=== PATIENT | female | born 1975 | race Caucasian/White ===

== ENCOUNTER 2017-02-13 14:01 | Emergency (ER) | payer OTHER ==
--- NOTE | 2017-02-13 14:53 | ERPHSYRPT ---
- History of Present Illness Time Seen by Provider: 02/13/17 14:33 Source: patient Exam Limitations: no limitations Patient Subjective Stated Complaint: all over headache Triage Nursing Assessment: all over headache for 1 week. pt states has been out of prestiq since saturday. 'i pretty much suffer from mental illness and this headaceh is from that and also pain' denies recent injury. nausea with no vomiting. photosensitivity and 'pinging in my head'. normal oral intake. normal bowel and bladder. Allergies/Adverse Reactions: Penicillins Allergy (Verified 02/13/17 14:14) Hives Home Medications: Desvenlafaxine Succinate [Pristiq ER] 100 mg PO DAILY 02/13/17 [History] Zolpidem Tartrate [Ambien] 5 mg PO HS 02/13/17 [History] Hx Tetanus, Diphtheria Vaccination/Date Given: Yes Hx Influenza Vaccination/Date Given: No Hx Pneumococcal Vaccination/Date Given: No Immunizations Up to Date: Yes - Past Medical History Pertinent Past Medical History: Yes Neurological History: No Pertinent History ENT History: No Pertinent History Cardiac History: No Pertinent History Respiratory History: No Pertinent History Endocrine Medical History: No Pertinent History Musculoskeletal History: Other GI Medical History: No Pertinent History History: No Pertinent History Psycho-Social History: Anxiety, Depression Female Reproductive Disorders: No Pertinent History Other Medical History: CHRONIC BACK PAIN - Past Surgical History Past Surgical History: Yes Neuro Surgical History: No Pertinent History Cardiac: No Pertinent History, Vascular Surgery Respiratory: No Pertinent History Gastrointestinal: No Pertinent History Genitourinary: No Pertinent History Musculoskeletal: Other Female Surgical History: Section, Tubal Ligation Other Surgical History: SALPINGOOPHORECTOMY - Social History Smoking Status: Current every day smoker Exposure to second hand smoke: Yes Drug Use: none Patient Lives Alone: No - Female History Hx Last Menstrual Period: 3 weeks Hx Now: No - Nursing Vital Signs Nursing Vital Signs: Initial Vital Signs Temperature 98.7 F Temperature Source Oral Pulse Rate 114 Respiratory Rate 18 Blood Pressure [Right Arm] 156/94 Pain Intensity 8 - Physical Exam SpO2: 100 Oxygen Delivery: Room Air - Departure Instructions: Headache
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
[2017-02-13] MEDS ORDERED: Ativan 2 MG/1 ML VIAL IV ONE (15:13)
[2017-02-13] MEDS ORDERED: Ativan 2 MG/1 ML VIAL ONE (15:29)
[2017-02-13 15:33] LABS: BASOPHIL % 0.3 % (0.0-0.4); Eosinophil % 1.8 % (0.00-5.0); Granulocytes % 57.3 % (36.0-66.0); Lymphocytes % 31.6 % (24.0-44.0); Mean Cell Volume 83.4 fl (78-100); Mean Corpuscular Hemoglobin 26.6 pg (26-32); Mean Platelet Volume 9.4 fl (6-9.5); Platelet Count 348 K/mm3 (150-450); Red Blood Count 4.82 M/mm3 (4.1-5.4); Red Cell Distribution Width 17.9 % (11.5-14.0); White Blood Count 7.7 K/mm3 (4.0-10.5)
[2017-02-13 15:50] LABS: COMPLETE URINE MICROSCOPIC? NO; Collection Type CCMS
[2017-02-13 15:56] LABS: ACETAMINOPHEN < 2.0 ug/ml (10-30); ALBUMIN 4.1 g/dL (3.4-5.0); ALKALINE PHOSPHATASE 75 U/L (46-116); ANION GAP 13.9 MEQ/L (5-15); BILIRUBIN,TOTAL 0.3 mg/dL (0.2-1.0); BLOOD UREA NITROGEN 9 mg/dL (9-20); CHLORIDE 105 mEq/L (98-107); Carbon Dioxide 25.4 mEq/L (21-32); Glucose 83 MG/DL (70-110); Potassium 3.6 mEq/L (3.5-5.1); SGOT/AST 22 U/L (15-37); SGPT/ALT 18 U/L (12-78); SODIUM 141 mEq/L (136-145); Total Protein 7.8 gm/dL (6.4-8.2)
[2017-02-13] MEDS ORDERED: TYLENOL 325 MG PO STA (17:42)
[2017-02-13] MEDS ORDERED: TYLENOL 325 MG ONE (17:49)
[2017-02-13 18:54] VITALS: O2SAT 100
[2017-02-13 22:03] VITALS: BP 130/68; PULSE 78
== END 2017-02-13 22:03 | disposition home or self-care (01) ==
LOC: ED 14:01
DX: F32.9 Major depressive disorder, single episode, unspecified (principal); F41.9 Anxiety disorder, unspecified; R51 Headache; R11.0 Nausea; R41.840 Attention and concentration deficit; G47.00 Insomnia, unspecified; R45.851 Suicidal ideations; R45.1 Restlessness and agitation; Z79.899 Other long term (current) drug therapy
CPT/HCPCS: 36000; 36415; 80053; 80307; 80320; 81002; 83986; 85025; 90791; 96374; 99284; 99285; G0481; J2060; Q3014; A9270-GY

== ENCOUNTER 2018-05-04 12:21 | Observation (INO) | payer OTHER ==
[2018-05-04] MEDS ORDERED: LOPRESSOR 5 MG/5 ML INJECTION IV ONE ×2 (12:51→12:57)
[2018-05-04] MEDS ORDERED: BABY ASPIRIN 81 MG CHEW PO ONE (12:51)
[2018-05-04] MEDS ORDERED: Sodium Chloride 0.9% 1000 ML 1,000 ML IV STA (12:51)
[2018-05-04] MEDS ORDERED: Nitrostat 0.4 MG (ED) SL ONE ×3 (12:51→13:19)
--- NOTE | 2018-05-04 12:55 | ERPHSYRPT ---
- History of Present Illness Time Seen by Provider: 05/04/18 12:45 Historian: patient Exam Limitations: clinical condition Patient Subjective Stated Complaint: Patient was visiting at [facility] and started having chest pain that radiated to neck and to back and entire face started tingling and went numb. Triage Nursing Assessment: Patient present in ED ambulating with complaints of chest pain that radiates to back and causing entire face to be numb for about an hour. Patient was at rest during episode. Patient states she has been having high blood pressure and anxiety attacks the past week and has an appointment this week with family dr. Physician History: PATIENT WITH A HISTORY OF ANXIETY, HYPERTENSION, TAKEN OFF HYPERTENSION MEDICATIONS COMPLAINS OF MONTHS AGO. HAS ONSET OF SUBSTERNAL CHEST PAINS INTERMITTENT X 1 WEEK WITH A EPISODE OF FACIAL NUMBNESS. DENIES HEADACHE, BLURRED VISION, UNSTABLE GAIT, NUMBNESS, TNGLING AND WEAKNESS IN EXTREMITIES. DENIES COUGH OR FEVER. Timing/Duration: week(s) Activities at Onset: activity Location: substernal Chest Pain Radiation: arm Severity of Pain-Max: moderate Severity of Pain-Current: moderate Modifying Factors: Improves With: nothing Nitro Today/Relief: 0.4 mg x 2, provided by ED Aspirin Treatment Today: 81 mg x 4, provided by ED Allergies/Adverse Reactions: Penicillins Allergy (Verified 02/13/17 14:14) Hives Home Medications: clonazePAM [Clonazepam] 1 tab PO BIDPRN PRN 05/04/18 [History] Hx Tetanus, Diphtheria Vaccination/Date Given: No Hx Influenza Vaccination/Date Given: No Hx Pneumococcal Vaccination/Date Given: No Immunizations Up to Date: Yes - Review of Systems Constitutional: No Fever, No Chills Eyes: No Symptoms Ears, Nose, & Throat: No Symptoms Respiratory: No Symptoms, No Cough, No Dyspnea Cardiac: Chest Pain, Palpitations, No Edema, No Syncope Abdominal/Gastrointestinal: No Abdominal Pain, No Nausea, No Vomiting, No Diarrhea Genitourinary Symptoms: No Symptoms, No Dysuria Musculoskeletal: No Symptoms, No Back Pain, No Neck Pain Skin: No Rash Neurological: No Dizziness, No Focal Weakness, No Sensory Changes Psychological: No Symptoms Endocrine: No Symptoms All Other Systems: Reviewed and Negative - Past Medical History Pertinent Past Medical History: Yes Neurological History: No Pertinent History ENT History: No Pertinent History Cardiac History: No Pertinent History Respiratory History: No Pertinent History Endocrine Medical History: No Pertinent History Musculoskeletal History: Other GI Medical History: No Pertinent History History: No Pertinent History Psycho-Social History: Anxiety, Depression Female Reproductive Disorders: No Pertinent History Other Medical History: CHRONIC BACK PAIN - Past Surgical History Past Surgical History: Yes Neuro Surgical History: No Pertinent History Cardiac: No Pertinent History, Vascular Surgery Respiratory: No Pertinent History Gastrointestinal: No Pertinent History Genitourinary: No Pertinent History Musculoskeletal: Other Female Surgical History: Section, Tubal Ligation Other Surgical History: SALPINGOOPHORECTOMY - Social History Smoking Status: Current every day smoker How long have you smoked: 8 years Exposure to second hand smoke: Yes Drug Use: marijuana Patient Lives Alone: No - Female History Hx Last Menstrual Period: currently Hx Now: No - Nursing Vital Signs Nursing Vital Signs: Initial Vital Signs Temperature 98.1 F 05/04/18 12:31 Pulse Rate 105 H 05/04/18 12:31 Respiratory Rate 20 05/04/18 12:31 Blood Pressure 183/122 05/04/18 12:31 O2 Sat by Pulse Oximetry 100 05/04/18 12:31 Pain Scale Pain Intensity 6 - Physical Exam General Appearance: no apparent distress, alert Eye Exam: PERRL/EOMI, eyes nml inspection Ears, Nose, Throat Exam: normal ENT inspection, moist mucous membranes Neck Exam: normal inspection, non-tender, supple, full range of motion Respiratory Exam: normal breath sounds, lungs clear, No respiratory distress Cardiovascular Exam: regular rate/rhythm, normal heart sounds, tachycardia Gastrointestinal/Abdomen Exam: soft, normal bowel sounds, No tenderness, No mass Back Exam: normal inspection, No CVA tenderness, No vertebral tenderness Extremity Exam: normal inspection, normal range of motion Neurologic Exam: alert, oriented x 3, cooperative, normal mood/affect, sensation nml, No motor deficits Skin Exam: normal color, warm, dry SpO2 Interpretation: normal SpO2: 100 Oxygen Delivery: Room Air - Course EKG Interpreted by Me: RATE, Sinus Tach, NORMAL AXIS - Radiology Exams Chest X-ray Interpretation: Negative - CT Exams Head CT Interpretation: Tele-radiologist Report, No/Intracranial Hemorrhag Ordered Tests: Active Orders 24 hr Category Date Time Status Manager Change STAT Care 05/04/18 12:51 Active EKG-ER Only STAT Care 05/04/18 12:51 Active EKG-ER Only STAT Care 05/04/18 15:36 Ordered IV Insertion STAT Care 05/04/18 12:51 Active Oxygen-ED Only NASAL CANNULA 2 lpm Care 05/04/18 12:51 Active CHEST 1 VIEW (PORTABLE) Stat Exams 05/04/18 13:27 Taken HEAD WITHOUT CONTRAST [CT] Stat Exams 05/04/18 13:50 Taken CBC W DIFF Stat Lab 05/04/18 12:55 Completed CMP Stat Lab 05/04/18 12:55 Completed D-DIMER QUANTITATION Stat Lab 05/04/18 12:55 Completed HCG,QUALITATIVE URINE Stat Lab 05/04/18 14:45 Completed PROTIME WITH INR Stat Lab 05/04/18 12:55 Completed TROPONIN Q3H Lab 05/04/18 12:55 Completed TROPONIN Q3H Lab 05/04/18 16:00 Ordered TROPONIN Q3H Lab 05/04/18 19:00 Ordered TROPONIN Q3H Lab 05/04/18 22:00 Ordered TROPONIN Q3H Lab 05/05/18 01:00 Ordered TSH, 3RD Generation Routine Lab 05/04/18 12:55 Completed Urine Triage Profile Stat Lab 05/04/18 12:54 Completed Medication Summary Discontinued Medications Generic Name Dose Route Start Last Admin Trade Name Freq PRN Reason Stop Dose Admin Aspirin 324 mg 05/04/18 12:51 05/04/18 13:00 Baby Aspirin 81 Mg Chew PO 05/04/18 12:52 324 mg STAT ONE Administration Aspirin Confirm 05/04/18 12:56 Baby Aspirin 81 Mg Chew Administered 05/04/18 12:57 Dose 324 mg .ROUTE .STK-MED ONE Sodium Chloride 1,000 mls @ 500 mls/hr 05/04/18 12:51 05/04/18 13:00 Sodium Chloride 0.9% 1000 Ml IV 05/04/18 14:50 500 mls/hr .Q2H STA Administration Sodium Chloride Confirm 05/04/18 12:57 Sodium Chloride 0.9% 1000 Ml Administered 05/04/18 12:58 Dose 1,000 mls @ ud .ROUTE .STK-MED ONE Metoprolol Tartrate 5 mg 05/04/18 12:51 05/04/18 13:01 Lopressor 5 Mg/5 Ml Injection IV 05/04/18 12:52 5 mg STAT ONE Administration Metoprolol Tartrate Confirm 05/04/18 12:57 Lopressor 5 Mg/5 Ml Injection Administered 05/04/18 12:58 Dose 5 mg IV .STK-MED ONE Nitroglycerin 0.4 mg 05/04/18 12:51 05/04/18 13:00 Nitrostat 0.4 Mg (Ed) SL 05/04/18 12:52 0.4 mg STAT ONE Administration Nitroglycerin Confirm 05/04/18 12:56 Nitrostat 0.4 Mg (Ed) Administered 05/04/18 12:57 Dose 0.4 mg SL .STK-MED ONE Nitroglycerin 0.4 mg 05/04/18 13:19 05/04/18 13:21 Nitrostat 0.4 Mg (Ed) SL 05/04/18 13:20 0.4 mg STAT ONE Administration Nitroglycerin 1 gm 05/04/18 14:44 05/04/18 14:53 Nitro-Bid 2% Ud Packets TOP 05/04/18 14:45 1 gm STAT ONE Administration Nitroglycerin Confirm 05/04/18 14:52 Nitro-Bid 2% Ud Packets Administered 05/04/18 14:53 Dose 1 gm .ROUTE .STK-MED ONE Lab/Rad Data: Laboratory Result Diagrams 05/04/18 12:55 05/04/18 12:55 Laboratory Results 05/04/18 05/04/18 05/04/18 Range/Units 14:45 12:55 12:55 WBC (4.0-10.5) K/mm3 RBC (4.1-5.4) M/mm3 Hgb (12.0-16.0) gm/dl Hct (35-47) % MCV (78-100) fl MCH (26-32) pg MCHC (32-36) g/dl RDW (11.5-14.0) % Plt Count (150-450) K/mm3 MPV (6-9.5) fl Gran % (36.0-66.0) % Eos # (Auto) (0-0.5) Absolute Lymphs (auto) (1.0-4.6) Absolute Monos (auto) (0.0-1.3) Lymphocytes % (24.0-44.0) % Monocytes % (0.0-12.0) % Eosinophils % (0.00-5.0) % Basophils % (0.0-0.4) % Absolute Granulocytes (1.4-6.9) Basophils # (0-0.4) PT 12.0 (9.95-12.35) SECONDS INR 1.03 (0.8-3.0) D-Dimer 440 (215-500) ng/mL Sodium (137-145) mmol/L Potassium (3.5-5.1) mmol/L Chloride (98-107) mmol/L Carbon Dioxide (22-30) mmol/L Anion Gap (5-15) MEQ/L BUN (7-17) mg/dL Creatinine (0.52-1.04) mg/dL Estimated GFR ML/MIN Glucose (74-106) mg/dL Calcium (8.4-10.2) mg/dL Total Bilirubin (0.2-1.3) mg/dL AST (14-36) U/L ALT (0-35) U/L Alkaline Phosphatase (38-126) U/L Troponin I < 0.012 (0.000-0.034) ng/mL Serum Total Protein (6.3-8.2) g/dL Albumin (3.5-5.0) g/dL TSH 3rd Generation 2.250 (0.47-4.68) mIU/L Urine HCG, Qual NEGATIVE (Negative) Urine Opiates Level (NEGATIVE) Ur Methadone (NEGATIVE) Urine Barbiturates (NEGATIVE) Ur Phencyclidine (PCP) (NEGATIVE) Urine Amphetamine (NEGATIVE) U Benzodiazepine Level (NEGATIVE) Urine Cocaine (NEGATIVE) Urine Marijuana (THC) (NEGATIVE) 05/04/18 05/04/18 05/04/18 Range/Units 12:55 12:55 12:54 WBC 8.4 (4.0-10.5) K/mm3 RBC 4.72 (4.1-5.4) M/mm3 Hgb 13.2 (12.0-16.0) gm/dl Hct 40.1 (35-47) % MCV 85.0 (78-100) fl MCH 28.0 (26-32) pg MCHC 32.9 (32-36) g/dl RDW 17.2 H (11.5-14.0) % Plt Count 396 (150-450) K/mm3 MPV 10.0 H (6-9.5) fl Gran % 62.5 (36.0-66.0) % Eos # (Auto) 0.16 (0-0.5) Absolute Lymphs (auto) 2.36 (1.0-4.6) Absolute Monos (auto) 0.59 (0.0-1.3) Lymphocytes % 28.2 (24.0-44.0) % Monocytes % 7.0 (0.0-12.0) % Eosinophils % 1.9 (0.00-5.0) % Basophils % 0.4 (0.0-0.4) % Absolute Granulocytes 5.23 (1.4-6.9) Basophils # 0.03 (0-0.4) PT (9.95-12.35) SECONDS INR (0.8-3.0) D-Dimer (215-500) ng/mL Sodium 143 (137-145) mmol/L Potassium 3.9 (3.5-5.1) mmol/L Chloride 107 (98-107) mmol/L Carbon Dioxide 25 (22-30) mmol/L Anion Gap 14.7 (5-15) MEQ/L BUN 12 (7-17) mg/dL Creatinine 0.78 (0.52-1.04) mg/dL Estimated GFR > 60.0 ML/MIN Glucose 107 H (74-106) mg/dL Calcium 10.0 (8.4-10.2) mg/dL Total Bilirubin 0.40 (0.2-1.3) mg/dL AST 20 (14-36) U/L ALT 13 (0-35) U/L Alkaline Phosphatase 93 (38-126) U/L Troponin I (0.000-0.034) ng/mL Serum Total Protein 8.1 (6.3-8.2) g/dL Albumin 5.0 (3.5-5.0) g/dL TSH 3rd Generation (0.47-4.68) mIU/L Urine HCG, Qual (Negative) Urine Opiates Level NEGATIVE (NEGATIVE) Ur Methadone NEGATIVE (NEGATIVE) Urine Barbiturates NEGATIVE (NEGATIVE) Ur Phencyclidine (PCP) NEGATIVE (NEGATIVE) Urine Amphetamine NEGATIVE (NEGATIVE) U Benzodiazepine Level NEGATIVE (NEGATIVE) Urine Cocaine NEGATIVE (NEGATIVE) Urine Marijuana (THC) POSITIVE (NEGATIVE) - Progress Progress: improved, re-examined Progress Note: 05/04/18 16:02 ADMINISTERED IV NORMAL SALINE 500ML BOLUS, ASA 324MG ORALLY, NITRO 0.4MG SL X 2 , NITROPASTE 1" ANTERIOR CHEST WALL, LOPRESSOR 5MG, EKG SINUS TACHY RATE 115, REPEAT EKG NORMAL SINUS RHYTHM RATE 81 Discussed with : Kayley Will see patient in: hospital (observation) (DISCUSSED WITH DR ZIMMER AT 1600 FOR OBSERVATION) - Departure Time of Disposition: 16:10 Departure Disposition: Observation Clinical Impression: ACUTE CHEST PAIN, HYPERTENSION Condition: Stable Critical Care Time: No Referrals: JASON FUENTES NP [Primary Care Provider] -
[2018-05-04] MEDS ORDERED: BABY ASPIRIN 81 MG CHEW ONE (12:56)
[2018-05-04] MEDS ORDERED: Sodium Chloride 0.9% 1000 ML 1,000 ML ONE (12:57)
[2018-05-04 13:04] LABS: BASOPHIL % 0.4 % (0.0-0.4); Basophil (Absolute #) 0.03 (0-0.4); Eosinophil % 1.9 % (0.00-5.0); Eosinophil (Absolute #) 0.16 (0-0.5); Granulocyte Absolute (ANC) 5.23 (1.4-6.9); Granulocytes % 62.5 % (36.0-66.0); Hematocrit 40.1 % (35-47); Hemoglobin 13.2 gm/dl (12.0-16.0); Lymphocyte (Absolute #) 2.36 (1.0-4.6); Lymphocytes % 28.2 % (24.0-44.0); Mean Corpuscular Hgb Concent. 32.9 g/dl (32-36); Monocyte (Absolute #) 0.59 (0.0-1.3); Platelet Count 396 K/mm3 (150-450); Red Blood Count 4.72 M/mm3 (4.1-5.4); Red Cell Distribution Width 17.2 % (11.5-14.0); White Blood Count 8.4 K/mm3 (4.0-10.5)
[2018-05-04 13:20] LABS: ALKALINE PHOSPHATASE 93 U/L (38-126); ANION GAP 14.7 MEQ/L (5-15); BLOOD UREA NITROGEN 12 mg/dL (7-17); CHLORIDE 107 mmol/L (98-107); Carbon Dioxide 25 mmol/L (22-30); Creatinine 1 0.78 mg/dL (0.52-1.04); Glucose 107 mg/dL (74-106); Potassium 3.9 mmol/L (3.5-5.1); SGOT/AST 20 U/L (14-36); SGPT/ALT 13 U/L (0-35); SODIUM 143 mmol/L (137-145); Total Protein 8.1 g/dL (6.3-8.2)
[2018-05-04 13:22] LABS: INR 1.03 (0.8-3.0)
[2018-05-04 13:42] LABS: TROPONIN < 0.012 ng/mL (0.000-0.034)
[2018-05-04] MEDS ORDERED: NITRO-BID 2% UD PACKETS TOP ONE (14:44)
[2018-05-04] MEDS ORDERED: NITRO-BID 2% UD PACKETS ONE (14:52)
[2018-05-04 15:08] LABS: Amphetamine,Urine NEGATIVE (NEGATIVE); Barbiturate,Urine NEGATIVE (NEGATIVE); Benzodiazepine,Urine NEGATIVE (NEGATIVE); Cocaine,Urine NEGATIVE (NEGATIVE); Methadone,Urine NEGATIVE (NEGATIVE); Opiate,Urine NEGATIVE (NEGATIVE); PCP,Urine NEGATIVE (NEGATIVE); THC,Urine POSITIVE (NEGATIVE)
[2018-05-04] MEDS ORDERED: Senokot-S Tablet PO PRN (16:07)
[2018-05-04] MEDS ORDERED: MAALOX ES 30 ML UNIT DOSE PO PRN (16:07)
[2018-05-04] MEDS ORDERED: Zofran 4 MG/2 ML VIAL IV PRN (16:07)
[2018-05-04] MEDS ORDERED: Nitrostat 0.4 MG Tablet SL PRN (16:07)
[2018-05-04] MEDS ORDERED: TYLENOL 325 MG PO PRN (16:07)
[2018-05-04] MEDS ORDERED: MILK OF MAGNESIA 30 ML PO PRN (16:07)
[2018-05-04] MEDS ORDERED: MORPHINE SULFATE 2 MG INJ IV PRN (16:07)
[2018-05-04] MEDS ORDERED: KLONOPIN PO SCH (16:15)
[2018-05-04] MEDS ORDERED: Sodium Chloride 0.9% 500 ML 500 ML IV SCH (16:15)
[2018-05-04] MEDS ORDERED: TYLENOL 325 MG ONE (16:44)
[2018-05-04] MEDS ORDERED: Sodium Chloride 0.9% 500 ML 500 ML IV ONE (16:54)
[2018-05-04] MEDS ORDERED: Klonopin 0.5 MG PO PRN (19:50)
[2018-05-04 20:14] VITALS: BP 137/85; PULSE 81; O2SAT 99
--- NOTE | 2018-05-04 20:44 | XRAY ---
Indication: Chest pain. High blood pressure. Comparison: November 17, 2014. Portable chest again demonstrates normal heart, lungs, and bony thorax.
--- NOTE | 2018-05-04 20:47 | XRAY ---
Indication: Headache and facial numbness. High blood pressure. Multiple contiguous axial images obtained through the head without contrast. Comparison: November 17, 2014. Again normal appearing brain parenchyma, ventricles, and bony calvarium. Visualized paranasal sinuses and mastoid air cells are clear. Impression: Stable normal CT head without contrast exam. Comment: Preliminary interpretation was made by [facility]. No discrepancy. CTDI 69.38
[2018-05-04] MEDS ORDERED: Klonopin 0.5 MG ONE (22:12)
[2018-05-05] MEDS ORDERED: Toprol-Xl 25MG Tablets PO SCH (10:00)
[2018-05-05] MEDS ORDERED: Ecotrin 325 MG PO SCH (10:00)
== END 2018-05-04 23:15 | disposition left against medical advice (07) ==
LOC: ED 12:21 → MED SURG 16:19
PROVIDERS: ADMIT Family Medicine; ATTEND Family Medicine
DX: R07.9 Chest pain, unspecified (principal); I10 Essential (primary) hypertension; F32.9 Major depressive disorder, single episode, unspecified; Z72.0 Tobacco use; Z79.899 Other long term (current) drug therapy
CPT/HCPCS: 36000; 36415; 70450; 71045; 80053; 80307; 84443; 84484; 84703; 85025; 85379; 85610; 93005; 93041; 93268; 96374; 99285; G0378; A9270-GY

== ENCOUNTER 2018-06-25 13:42 | Emergency (ER) | payer OTHER ==
[2018-06-25] MEDS ORDERED: Sodium Chloride 0.9% 1000 ML 1,000 ML IV STA (14:05)
[2018-06-25] MEDS ORDERED: Sodium Chloride 0.9% 1000 ML 1,000 ML ONE (14:07)
[2018-06-25 14:12] VITALS: O2SAT 98
--- NOTE | 2018-06-25 14:14 | ERPHSYRPT ---
- History of Present Illness Time Seen by Provider: 06/25/18 13:45 Source: patient, family (mother) Physician History: patient gave blood today; later passed out in car; no MVA; no injury; brought by mohter; no prior hx; incontinent of urine; feels weak; no ARREDONDO; slight nausea; no emesis; no other gu symptomos; no CP or SOB or paplatations; no seizure Witnessed: unwitnessed Prior Episodes: no prior history Timing/Duration: today, resolved prior to arrival, sudden Precipitating Factors: other (gave blood just prior) Context: sitting Loss of Consciousness: brief (seconds) Allergies/Adverse Reactions: Penicillins Allergy (Verified 02/13/17 14:14) Hives Home Medications: Bupropion HCl 150 mg Sr [Wellbutrin SR 150 MG] 150 mg DAILY 06/25/18 [ History] Lisinopril/Hydrochlorothiazide [Lisinopril-Hctz 10-12.5 mg Tab] 1 ea DAILY 06/25 [History] Hx Tetanus, Diphtheria Vaccination/Date Given: No Hx Influenza Vaccination/Date Given: No Hx Pneumococcal Vaccination/Date Given: No - Past Medical History Pertinent Past Medical History: Yes Neurological History: No Pertinent History ENT History: No Pertinent History Cardiac History: No Pertinent History Respiratory History: No Pertinent History Endocrine Medical History: No Pertinent History Musculoskeletal History: Other GI Medical History: No Pertinent History History: No Pertinent History Psycho-Social History: Anxiety, Depression Female Reproductive Disorders: No Pertinent History Other Medical History: CHRONIC BACK PAIN - Past Surgical History Past Surgical History: Yes Neuro Surgical History: No Pertinent History Cardiac: No Pertinent History Respiratory: No Pertinent History Gastrointestinal: No Pertinent History Genitourinary: No Pertinent History Musculoskeletal: Other Female Surgical History: Section, Tubal Ligation Other Surgical History: SALPINGOOPHORECTOMY - Social History Smoking Status: Current every day smoker How long have you smoked: 8 yrs Exposure to second hand smoke: Yes Alcohol Use: Socially Drug Use: marijuana Patient Lives Alone: No Significant Family History: no pertinent family hx - Female History Hx Now: No - Review of Systems Constitutional: Malaise Eyes: No Symptoms Ears, Nose, & Throat: No Symptoms Respiratory: No Cough, No Dyspnea, No Wheezing Cardiac: Syncope, No Chest Pain, No Edema, No Palpitations Abdominal/Gastrointestinal: Nausea (slight), No Abdominal Pain, No Vomiting, No Diarrhea Genitourinary Symptoms: Incontinence, No Dysuria, No Frequency, No Hematuria, No Hesitancy, No Urgency Musculoskeletal: No Symptoms Skin: No Symptoms Neurological: Other (syncope), No Focal Weakness, No Headache, No Seizure, No Vertigo Psychological: No Symptoms Endocrine: No Symptoms Hematologic/Lymphatic: No Symptoms Immunological/Allergic: No Symptoms Physical Exam - Nursing Vital Signs Nursing Vital Signs: Initial Vital Signs Temperature 98.2 F 06/25/18 14:04 Pulse Rate 98 H 06/25/18 14:04 Respiratory Rate 16 06/25/18 14:04 Blood Pressure 112/80 06/25/18 14:04 O2 Sat by Pulse Oximetry 98 06/25/18 14:04 Pain Scale Pain Intensity 0 - Yuval Coma Scale Best Eye Response ([place]): (4) open spontaneously Best Verbal Response ([place]): (5) oriented Best Motor Response ([place]): (6) obeys commands [place] Total: 15 - Physical Exam General Appearance: moderate distress, alert, lethargy Eye Exam: bilateral eye: normal inspection, PERRL, EOMI, other (fundi benign; vision ok) Ears, Nose, Throat Exam: normal ENT inspection, pharynx normal, moist mucous membranes Neck Exam: normal inspection, non-tender, supple, full range of motion, No meningismus, No carotid bruit, No JVD Respiratory: normal breath sounds, lungs clear, airway intact, No chest tenderness, No respiratory distress, No crackles/rales, No rhonchi, No wheezing Cardiovascular: regular rate/rhythm, normal heart sounds, normal peripheral pulses, capillary refill <2 sec, No murmur Gastrointestinal: soft, normal bowel sounds, No tenderness, No guarding, No rebound, No organomegaly Pelvic Exam: deferred Rectal Exam: deferred Back Exam: normal inspection, normal range of motion, No CVA tenderness, No vertebral tenderness, No rash Extremity Exam: normal inspection, normal range of motion, No natalya's sign, No pedal edema Peripheral Pulses: carotid (R): 4+, carotid (L): 4+, femoral (R): 4+, femoral (L ): 4+ Mental Status: alert, oriented x 3, cooperative program aide group work Exam: normal hearing, normal speech, PERRL Coordination/Gait: negative Romberg's sign Motor/Sensory: no sensory deficit, no pronator drift, negative Babinski's sign DTR: knee (R): 4+, knee (L): 4+ Skin Exam: normal color, warm, dry, No rash, No petechiae SpO2 Interpretation: normal SpO2: 98 Oxygen Delivery: Room Air - Course Nursing assessment & vital signs reviewed: Yes Rhythm Strip: Rate (86), Normal Sinus Rhythm Ordered Tests: Active Orders 24 hr Category Date Time Status Accucheck STAT Care 06/25/18 14:05 Active Pad Making Machine Operator STAT Care 06/25/18 14:05 Active IV Insertion STAT Care 06/25/18 14:05 Active Orthostatic Vital Signs STAT Care 06/25/18 14:05 Active Pulse Oximetry (ED) STAT Care 06/25/18 14:05 Active Re-Check Vital Signs STAT Care 06/25/18 14:05 Active BMP Stat Lab 06/25/18 14:15 Completed CBC W DIFF Stat Lab 06/25/18 14:15 Completed HCG QUALITATIVE,SERUM Stat Lab 06/25/18 14:15 Completed Medication Summary Generic Name Dose Route Start Last Admin Trade Name Freq PRN Reason Stop Dose Admin Potassium Chloride 40 meq 06/26/18 10:00 06/25/18 15:08 Potassium Chl 40 Meq/30 Ml Oral Solution PO 07/26/18 09:59 40 meq DAILY EVERETTE Administration Discontinued Medications Generic Name Dose Route Start Last Admin Trade Name Freq PRN Reason Stop Dose Admin Sodium Chloride 1,000 mls @ 999 mls/hr 06/25/18 14:05 06/25/18 14:10 Sodium Chloride 0.9% 1000 Ml IV 06/25/18 15:05 999 mls/hr .Q1H1M STA Administration Sodium Chloride Confirm 06/25/18 14:07 Sodium Chloride 0.9% 1000 Ml Administered 06/25/18 14:08 Dose 1,000 mls @ ud .ROUTE .STK-MED ONE Potassium Chloride Confirm 06/25/18 15:03 Potassium Chloride 20 Meq Powder For Oral Pat Administered 06/25/18 15:04 Dose 40 meq .ROUTE .STK-MED ONE Lab/Rad Data: Laboratory Result Diagrams 06/25/18 14:15 06/25/18 14:15 Laboratory Results 06/25/18 06/25/18 06/25/18 Range/Units 14:15 14:15 14:15 WBC 7.7 (4.0-10.5) K/mm3 RBC 4.84 (4.1-5.4) M/mm3 Hgb 14.0 (12.0-16.0) gm/dl Hct 41.4 (35-47) % MCV 85.5 (78-100) fl MCH 28.9 (26-32) pg MCHC 33.8 (32-36) g/dl RDW 16.2 H (11.5-14.0) % Plt Count 346 (150-450) K/mm3 MPV 10.0 H (6-9.5) fl Gran % 57.4 (36.0-66.0) % Eos # (Auto) 0.23 (0-0.5) Absolute Lymphs (auto) 2.49 (1.0-4.6) Absolute Monos (auto) 0.54 (0.0-1.3) Lymphocytes % 32.3 (24.0-44.0) % Monocytes % 7.0 (0.0-12.0) % Eosinophils % 3.0 (0.00-5.0) % Basophils % 0.3 (0.0-0.4) % Absolute Granulocytes 4.43 (1.4-6.9) Basophils # 0.02 (0-0.4) Sodium 137 (137-145) mmol/L Potassium 3.4 L (3.5-5.1) mmol/L Chloride 101 (98-107) mmol/L Carbon Dioxide 25 (22-30) mmol/L Anion Gap 14.8 (5-15) MEQ/L BUN 12 (7-17) mg/dL Creatinine 0.82 (0.52-1.04) mg/dL Estimated GFR > 60.0 ML/MIN Glucose 179 H (74-106) mg/dL Calcium 10.0 (8.4-10.2) mg/dL Serum , Qual NEGATIVE (Negative) reviewed - Progress Progress: improved (after fluids), re-examined (after fluids) Progress Note: 06/25/18 14:16 will check BS;labs, OSVS and give IV fluids; and recheck; mother at bedside 06/25/18 14:17 BS = 186; rhythm strip NSR at 86 09/19/18 14:57 IV fluids infusing; lytes ok except slight low K+ of 3.4 ; reneal fx ok; BS 179 ; will give K+ po and recheck; OSVS ok 06/25/18 14:58 06/25/18 15:09 CBC ok; plt ok 06/25/18 15:12 patient feeling better after 500 ccIV fluids; will continue IV fluids and recheck; 06/25/18 16:18 family at bedside; patient feeling much better after IV fluids and K+; reviewed results and instructions given Counseled pt/family regarding: lab results, diagnosis, need for follow-up - Departure Time of Disposition: 16:18 Departure Disposition: Home Clinical Impression: syncope post donating blood, hypokalemia K+ = 3.4 Condition: Stable Critical Care Time: No Referrals: JASON FUENTES NP [NON-STAFF PHY W/O PRIVILEGES] - Instructions: Syncope (Fainting) (DC) Additional Instructions: rest; good diet; rich in K+; encourage fluids fall precautions Follow-up with family doctor as directed. Call for appointment. Return if any problems. If you smoke please stop. Call or follow up with your family doctor for assistance if you need it to stop. Please wear your seatbelt when driving. Have a nice day. Thank you for allowing us to participate in your care today. :o) Dr Alexis Chauhan
[2018-06-25 14:39] LABS: ANION GAP 14.8 MEQ/L (5-15); BLOOD UREA NITROGEN 12 mg/dL (7-17); CHLORIDE 101 mmol/L (98-107); Carbon Dioxide 25 mmol/L (22-30); Creatinine 1 0.82 mg/dL (0.52-1.04); Glucose 179 mg/dL (74-106); Potassium 3.4 mmol/L (3.5-5.1); SODIUM 137 mmol/L (137-145)
[2018-06-25 14:49] LABS: BASOPHIL % 0.3 % (0.0-0.4); Basophil (Absolute #) 0.02 (0-0.4); Eosinophil (Absolute #) 0.23 (0-0.5); Granulocyte Absolute (ANC) 4.43 (1.4-6.9); Granulocytes % 57.4 % (36.0-66.0); Hematocrit 41.4 % (35-47); Lymphocyte (Absolute #) 2.49 (1.0-4.6); Lymphocytes % 32.3 % (24.0-44.0); Mean Cell Volume 85.5 fl (78-100); Mean Corpuscular Hemoglobin 28.9 pg (26-32); Mean Corpuscular Hgb Concent. 33.8 g/dl (32-36); Monocyte (Absolute #) 0.54 (0.0-1.3); Platelet Count 346 K/mm3 (150-450); Red Blood Count 4.84 M/mm3 (4.1-5.4); Red Cell Distribution Width 16.2 % (11.5-14.0); White Blood Count 7.7 K/mm3 (4.0-10.5)
[2018-06-25] MEDS ORDERED: POTASSIUM CHLORIDE 20 MEQ POWDER FOR ORAL SOL ONE (15:03)
[2018-06-25 16:34] VITALS: BP 100/72; PULSE 81
[2018-06-26] MEDS ORDERED: POTASSIUM CHL 40 MEQ/30 ML ORAL SOLUTION PO SCH (10:00)
== END 2018-06-25 16:36 | disposition home or self-care (01) ==
LOC: ED 13:42
DX: R55 Syncope and collapse (principal); E87.6 Hypokalemia
CPT/HCPCS: 36415; 80048; 82962; 84703; 85025; 93041; 96360; 99284

== ENCOUNTER 2019-05-27 15:50 | Emergency (ER) | payer OTHER, BC | END 2019-05-27 19:07 | disposition home or self-care (01) | LOC: ED 15:50 ==

== ENCOUNTER 2019-09-20 10:38 | Emergency (ER) | payer BC, OTHER ==
[2019-09-20 11:02] VITALS: O2SAT 100
[2019-09-20] MEDS ORDERED: MOTRIN 600 MG PO STA (11:13)
[2019-09-20] MEDS ORDERED: TYLENOL 325 MG PO STA (11:13)
--- NOTE | 2019-09-20 11:15 | ERPHSYRPT ---
- History of Present Illness Time Seen by Provider: 09/20/19 11:14 Source: patient Exam Limitations: no limitations Patient Subjective Stated Complaint: fever/flu like symptoms Triage Nursing Assessment: Patient ambulated back to ED and transferred self to bed. Patient complains of body aches 8/10 since yesterday. Patient denies vomiting or diarrhea, but states she is nauseous. Physician History: fever/flu like symptoms for 1 days Timing/Duration: today Fever Severity: moderate Fever Therapy ENGINEER SPECIALIST: none Associated Symptoms: headache, muscle aches Allergies/Adverse Reactions: Penicillins Allergy (Verified 09/20/19 10:56) Hives Hx Tetanus, Diphtheria Vaccination/Date Given: No Hx Influenza Vaccination/Date Given: No Hx Pneumococcal Vaccination/Date Given: No Immunizations Up to Date: Yes - Review of Systems Constitutional: Fever, Chills, Malaise Eyes: No Symptoms Ears, Nose, & Throat: No Symptoms Respiratory: No Cough, No Dyspnea Cardiac: No Chest Pain, No Edema, No Syncope Abdominal/Gastrointestinal: No Abdominal Pain, No Nausea, No Vomiting, No Diarrhea Genitourinary Symptoms: No Dysuria Musculoskeletal: No Back Pain, No Neck Pain Skin: No Rash Neurological: No Dizziness, No Focal Weakness, No Sensory Changes Psychological: No Symptoms Endocrine: No Symptoms All Other Systems: Reviewed and Negative - Past Medical History Pertinent Past Medical History: Yes Neurological History: No Pertinent History ENT History: No Pertinent History Cardiac History: No Pertinent History Respiratory History: No Pertinent History Endocrine Medical History: No Pertinent History Musculoskeletal History: Other GI Medical History: No Pertinent History History: No Pertinent History Psycho-Social History: Anxiety, Depression Female Reproductive Disorders: No Pertinent History Other Medical History: CHRONIC BACK PAIN - Past Surgical History Past Surgical History: Yes Neuro Surgical History: No Pertinent History Cardiac: No Pertinent History Respiratory: No Pertinent History Gastrointestinal: No Pertinent History Genitourinary: No Pertinent History Musculoskeletal: Other Female Surgical History: Section, Tubal Ligation Other Surgical History: SALPINGOOPHORECTOMY. Picc line, right arm - Social History Smoking Status: Current every day smoker How long have you smoked: years Exposure to second hand smoke: Yes Alcohol Use: Socially Drug Use: marijuana Patient Lives Alone: No Significant Family History: no pertinent family hx - Female History Hx Last Menstrual Period: one week ago Hx Now: No - Nursing Vital Signs Nursing Vital Signs: Initial Vital Signs Temperature 99.0 F 09/20/19 10:57 Pulse Rate 101 H 09/20/19 10:57 Respiratory Rate 18 09/20/19 10:57 Blood Pressure 157/100 09/20/19 10:57 O2 Sat by Pulse Oximetry 100 09/20/19 10:57 Pain Scale Pain Intensity 5 - Physical Exam General Appearance: no apparent distress, alert Eye Exam: PERRL/EOMI ENT Exam: normal ENT inspection, No pharyngeal erythema, No tonsillar exudate Neck Exam: supple, full range of motion, No meningismus Respiratory Exam: normal breath sounds, lungs clear, no respiratory distress Cardiovascular/Chest Exam: normal heart sounds, regular rate/rhythm, No murmur, No edema Gastrointestinal/Abdominal Exam: soft, non tender, no distention Extremity Exam: non-tender, normal range of motion, normal inspection, normal capillary refill Neurologic Exam: alert, oriented x 3, cooperative, gravity prospecting observer helper II-XII nml as tested, normal mood/affect, sensation nml, No motor deficits Skin Exam: normal color, warm, dry, No rash SpO2: 100 - Course Nursing assessment & vital signs reviewed: Yes Ordered Tests: Active Orders 24 hr Category Date Time Status CBC W DIFF Stat Lab 09/20/19 11:30 Completed CMP Stat Lab 09/20/19 11:30 Completed Manual Differential NC Stat Lab 09/20/19 11:30 Completed Medication Summary Discontinued Medications Generic Name Dose Route Start Last Admin Trade Name Norma PRN Reason Stop Dose Admin Acetaminophen 975 mg 09/20/19 11:13 09/20/19 11:21 Tylenol 325 Mg PO 09/20/19 11:14 975 mg STAT STA Administration Acetaminophen Confirm 09/20/19 11:20 Tylenol 325 Mg Administered 09/20/19 11:21 Dose 975 mg .ROUTE .STK-MED ONE Ibuprofen 600 mg 09/20/19 11:13 09/20/19 11:22 Motrin 600 Mg PO 09/20/19 11:14 600 mg STAT STA Administration Ibuprofen Confirm 09/20/19 11:20 Motrin 600 Mg Administered 09/20/19 11:21 Dose 600 mg .ROUTE .STK-MED ONE Lab/Rad Data: Laboratory Result Diagrams 09/20/19 11:30 09/20/19 11:30 Laboratory Results 09/20/19 09/20/19 09/20/19 Range/Units 11:30 11:30 11:30 WBC 5.6 (4.0-10.5) K/mm3 RBC 4.52 (4.1-5.4) M/mm3 Hgb 11.4 L (12.0-16.0) gm/dl Hct 36.2 (35-47) % MCV 80.1 (78-100) fl MCH 25.2 L (26-32) pg MCHC 31.5 L (32-36) g/dl RDW 19.4 H (11.5-14.0) % Plt Count 354 (150-450) K/mm3 MPV 9.4 (6-9.5) fl Segmented Neutrophils 76 H (36.0-66.0) % Band Neutrophils 2 (0.0-2.0) % Lymphocytes (Manual) 16 L (24-44) % Monocytes (Manual) 6 (0.0-12.0) % Toxic Granulation 1+ Platelet Estimate NORMAL (NORMAL) RBC Morphology NORMAL Sodium 137 (137-145) mmol/L Potassium 3.8 (3.5-5.1) mmol/L Chloride 103 (98-107) mmol/L Carbon Dioxide 25 (22-30) mmol/L Anion Gap 12.5 (5-15) MEQ/L BUN 5 L (7-17) mg/dL Creatinine 0.79 (0.52-1.04) mg/dL Estimated GFR > 60.0 ML/MIN Glucose 121 H (74-106) mg/dL Calcium 10.2 (8.4-10.2) mg/dL Total Bilirubin 0.30 (0.2-1.3) mg/dL AST 31 (14-36) U/L ALT 23 (0-35) U/L Alkaline Phosphatase 80 (38-126) U/L Serum Total Protein 7.7 (6.3-8.2) g/dL Albumin 4.4 (3.5-5.0) g/dL Influenza Type A Ag NEGATIVE (NEGATIVE) Influenza Type B Ag NEGATIVE (NEGATIVE) RSV (PCR) NEGATIVE (Negative) - Progress Progress: improved Counseled pt/family regarding: lab results, diagnosis, need for follow-up - Departure Departure Disposition: Home Clinical Impression: Fever and chills, Body aches Condition: Stable Critical Care Time: No Referrals: ALBERTO ZIMMER [Primary Care Provider] - Instructions: Fever, Adult (DC) Additional Instructions: take Tylenol 500 mg every 4 hours with ibuprofen 400 mg every 6 hours for fever and body ache. Please drink lots of water and other full liquids. If symptoms get worse, come back to the emergency room. Follow-up with your primary care physician tomorrow. Discharge/Care Plan REMA LANIER was seen on 09/20/19 in the Emergency Room. The patient was counseled regarding Diagnosis,Lab results, Imaging studies, need for follow up and when to return to the Emergency Room. Prescriptions given: Discharge Note I have spoken with the patient and/or caregivers. I have explained the patient' s condition, diagnosis and treatment plan based on the information available to me at this time. I have answered the patient's and/or caregiver's questions and addressed any concerns. The patient and/or caregivers have as good understanding of the patient's diagnosis, condition and treatment plan as can be expected at this point. The vital signs have been stable. The patient's condition is stable and appropriate for discharge from the emergency department. The patient will pursue further outpatient evaluation with the primary care physician or other designated or consulting physician as outlined in the discharge instructions. The patient and/or caregivers are agreeable to this plan of care and follow-up instructions have been explained in detail. The patient and/or caregivers have received these instruction. The patient/and or caregivers are aware that any significant change in condition or worsening of symptoms should prompt an immediate return to this or the closest emergency department or call 911. Prescriptions: Azithromycin [Zithromax] 250 mg PO DAILY #6 tablet
[2019-09-20] MEDS ORDERED: TYLENOL 325 MG ONE (11:20)
[2019-09-20] MEDS ORDERED: MOTRIN 600 MG ONE (11:20)
[2019-09-20 11:36] LABS: Hematocrit 36.2 % (35-47); Hemoglobin 11.4 gm/dl (12.0-16.0); Mean Cell Volume 80.1 fl (78-100); Mean Corpuscular Hemoglobin 25.2 pg (26-32); Mean Corpuscular Hgb Concent. 31.5 g/dl (32-36); Mean Platelet Volume 9.4 fl (6-9.5); Platelet Count 354 K/mm3 (150-450); Red Blood Count 4.52 M/mm3 (4.1-5.4); Red Cell Distribution Width 19.4 % (11.5-14.0); White Blood Count 5.6 K/mm3 (4.0-10.5)
[2019-09-20 11:46] LABS: ALBUMIN 4.4 g/dL (3.5-5.0); ALKALINE PHOSPHATASE 80 U/L (38-126); ANION GAP 12.5 MEQ/L (5-15); BLOOD UREA NITROGEN 5 mg/dL (7-17); CHLORIDE 103 mmol/L (98-107); Calcium 10.2 mg/dL (8.4-10.2); Carbon Dioxide 25 mmol/L (22-30); Creatinine 1 0.79 mg/dL (0.52-1.04); Glucose 121 mg/dL (74-106); Potassium 3.8 mmol/L (3.5-5.1); SGOT/AST 31 U/L (14-36); SGPT/ALT 23 U/L (0-35); SODIUM 137 mmol/L (137-145); Total Protein 7.7 g/dL (6.3-8.2)
[2019-09-20 12:59] LABS: INFLUENZA A NEGATIVE (NEGATIVE); INFLUENZA B NEGATIVE (NEGATIVE); RESPIRATORY SYNCTIAL VIRUS NEGATIVE (Negative)
[2019-09-20 13:02] LABS: BAND 2 % (0.0-2.0); Lymphocytes 16 % (24-44); Monocyte 6 % (0.0-12.0); Neutrophils 76 % (36.0-66.0); Platelet Estimate NORMAL (NORMAL); Total Cells Counted 100; Toxic Granulation 1+
[2019-09-20 13:17] VITALS: BP 125/80; PULSE 94
== END 2019-09-20 13:20 | disposition home or self-care (01) ==
LOC: ED 10:38
DX: R50.9 Fever, unspecified (principal); R51 Headache; M79.10 Myalgia, unspecified site
CPT/HCPCS: 36415; 80053; 85025; 87631; 99283; A9270-GY

== ENCOUNTER 2020-08-31 09:45 | Emergency (ER) | payer OTHER ==
--- NOTE | 2020-08-31 09:57 | ERPHSYRPT ---
- History of Present Illness Time Seen by Provider: 08/31/20 09:57 Historian: patient Exam Limitations: no limitations Physician History: This is a 44-year-old white female who has gallbladder sludge and pain in her abdomen with associated vomiting. She feels bloated belching gassy as well. Patient had an ultrasound recently which showed gallbladder sludge. She has an appointment to see a general surgeon to discuss the possibility of a cholecystectomy. That appointment is not until September 12. Patient denies chest pain and she denies shortness of breath. Timing/Duration: yesterday, worse Activities at Onset: none Abdominal Pain Onset Location: RUQ, epigastric Pain Radiation: no radiation Modifying Factors: Improves With: vomiting Associated Symptoms: nausea, vomiting Previous symptoms: same symptoms as today Allergies/Adverse Reactions: Penicillins Allergy (Verified 08/31/20 10:01) Hives Home Medications: Hydroxyzine HCl 25 mg [Atarax 25 mg] 25 mg PO BID 08/31/20 [History] Losartan Potassium 50 mg PO DAILY 08/31/20 [History] Omeprazole 40 mg PO DAILY 08/31/20 [History] buPROPion HCl [Bupropion HCl Sr] 150 mg PO BID 08/31/20 [History] Hx Tetanus, Diphtheria Vaccination/Date Given: No Hx Influenza Vaccination/Date Given: No Hx Pneumococcal Vaccination/Date Given: No - Past Medical History Pertinent Past Medical History: Yes Neurological History: No Pertinent History ENT History: No Pertinent History Cardiac History: No Pertinent History Respiratory History: No Pertinent History Endocrine Medical History: No Pertinent History Musculoskeletal History: Other GI Medical History: No Pertinent History History: No Pertinent History Psycho-Social History: Anxiety, Depression Female Reproductive Disorders: No Pertinent History Other Medical History: CHRONIC BACK PAIN - Past Surgical History Past Surgical History: Yes Neuro Surgical History: No Pertinent History Cardiac: No Pertinent History Respiratory: No Pertinent History Gastrointestinal: No Pertinent History Genitourinary: No Pertinent History Musculoskeletal: Other Female Surgical History: Section, Tubal Ligation Other Surgical History: SALPINGOOPHORECTOMY. Picc line, right arm - Social History Smoking Status: Current every day smoker How long have you smoked: years Exposure to second hand smoke: Yes Alcohol Use: Socially Drug Use: marijuana Patient Lives Alone: No Significant Family History: no pertinent family hx - Nursing Vital Signs Nursing Vital Signs: Initial Vital Signs Temperature 98.4 F 08/31/20 09:47 Pulse Rate 94 H 08/31/20 09:47 Blood Pressure 143/96 08/31/20 09:47 O2 Sat by Pulse Oximetry 100 08/31/20 09:47 Pain Scale Pain Intensity 4 Ordered Tests: Active Orders 24 hr Category Date Time Status IV Insertion STAT Care 08/31/20 10:33 Active ABDOMEN AND PELVIS W/0 CONTRAS [CT] Stat Exams 08/31/20 10:34 Completed AMYLASE Stat Lab 08/31/20 11:00 Completed CBC W DIFF Stat Lab 08/31/20 11:00 Results CMP Stat Lab 08/31/20 11:00 Completed LIPASE Stat Lab 08/31/20 11:00 Completed Lactic Acid Stat Lab 08/31/20 10:33 Completed UA W/RFX UR CULTURE Stat Lab 08/31/20 10:34 Ordered Medication Summary Discontinued Medications Generic Name Dose Route Start Last Admin Trade Name Freq PRN Reason Stop Dose Admin Hydromorphone HCl 1 mg 08/31/20 10:33 08/31/20 12:15 Hydromorphone 1 Mg/Ml Injection IV 08/31/20 10:34 1 mg STAT ONE Administration Hydromorphone HCl Confirm 08/31/20 12:12 Hydromorphone 1 Mg/Ml Injection Administered 08/31/20 12:13 Dose 1 mg .ROUTE .STK-MED ONE Sodium Chloride 1,000 mls @ 999 mls/hr 08/31/20 10:33 08/31/20 12:15 Sodium Chloride 0.9% 1000 Ml IV 08/31/20 11:33 999 mls/hr .Q1H1M STA Administration Sodium Chloride Confirm 08/31/20 12:13 Sodium Chloride 0.9% 1000 Ml Administered 08/31/20 12:14 Dose 1,000 mls @ ud .ROUTE .STK-MED ONE Ondansetron HCl 4 mg 08/31/20 10:33 08/31/20 12:15 Zofran 4 Mg/2 Ml Vial IV 08/31/20 10:34 4 mg STAT ONE Administration Ondansetron HCl Confirm 08/31/20 12:12 Zofran 4 Mg/2 Ml Vial Administered 08/31/20 12:13 Dose 4 mg .ROUTE .STK-MED ONE Lab/Rad Data: Laboratory Result Diagrams 08/31/20 11:00 08/31/20 11:00 Laboratory Results 08/31/20 08/31/20 08/31/20 Range/Units 11:00 11:00 10:33 WBC 3.8 L (4.0-10.5) K/mm3 RBC 4.61 (4.1-5.4) M/mm3 Hgb 12.2 (12.0-16.0) gm/dl Hct 38.0 (35-47) % MCV 82.4 (78-100) fl MCH 26.5 (26-32) pg MCHC 32.1 (32-36) g/dl RDW 18.4 H (11.5-14.0) % Plt Count 303 (150-450) K/mm3 MPV 9.8 (7.5-11.0) fl Gran % 59.2 (36.0-66.0) % Eos # (Auto) 0.05 (0-0.5) Absolute Lymphs (auto) 1.08 (1.0-4.6) Absolute Monos (auto) 0.42 (0.0-1.3) Lymphocytes % 28.1 (24.0-44.0) % Monocytes % 10.9 (0.0-12.0) % Eosinophils % 1.3 (0.00-5.0) % Basophils % 0.5 (0.0-0.4) % Absolute Granulocytes 2.27 (1.4-6.9) Basophils # 0.02 (0-0.4) Sodium 137 (137-145) mmol/L Potassium 3.9 (3.5-5.1) mmol/L Chloride 109 H (98-107) mmol/L Carbon Dioxide 22 (22-30) mmol/L Anion Gap 9.8 (5-15) MEQ/L BUN 4 L (7-17) mg/dL Creatinine 0.68 (0.52-1.04) mg/dL Estimated GFR > 60.0 ML/MIN Glucose 100 (74-106) mg/dL Lactic Acid 1.0 (0.4-2.0) Calcium 10.2 (8.4-10.2) mg/dL Total Bilirubin 0.50 (0.2-1.3) mg/dL AST 34 (14-36) U/L ALT 22 (0-35) U/L Alkaline Phosphatase 70 (38-126) U/L Serum Total Protein 7.0 (6.3-8.2) g/dL Albumin 4.3 (3.5-5.0) g/dL Amylase 37 (30-110) U/L Lipase 33 (23-300) U/L - Progress Progress: improved, pain not gone completely, re-examined Progress Note: 08/31/20 12:29 CAT scan of the abdomen and pelvis shows new cystic mass adjacent to the transverse duodenum, 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 Medical decision making: I spoke with Shannan in Dr. Meek office. The patient has an appointment with him on September 12. I reviewed the CAT scan findings with her. She has moved the patient's appointment up to September 05 at 10 AM. I faxed over the CAT scan of the abdomen and pelvis results to her. Counseled pt/family regarding: lab results, diagnosis, need for follow-up, rad results - Departure Departure Disposition: Home Clinical Impression: Abdominal pain Condition: Stable Critical Care Time: No Referrals: JASON FUENTES NP [Primary Care Provider] - Additional Instructions: Clear liquid diet. Avoid fatty greasy spicy foods. Take your medication as prescribed. Follow-up with your general surgeon's office on Saturday, September 05, 2020 at 10 AM. Return to the emergency department if your symptoms worsen. Prescriptions: Hydrocodone/APAP 5/325 [[place] 5/325 mg] 1 each PO Q6H PRN PRN #10 tablet MDD 4 PRN Reason: Pain Ondansetron ODT 4 MG [Zofran Odt 4 mg] 4 mg PO Q6H PRN PRN #10 tab.rapdis PRN Reason: Vomiting
[2020-08-31] MEDS ORDERED: Zofran 4 MG/2 ML VIAL IV ONE (10:33)
[2020-08-31] MEDS ORDERED: Hydromorphone 1 mg/ml Injection IV ONE (10:33)
[2020-08-31] MEDS ORDERED: Sodium Chloride 0.9% 1000 ML 1,000 ML IV STA (10:33)
[2020-08-31 11:32] LABS: Absolute Neutrophil Ct (ANC) 2.27 (1.4-6.9); BASOPHIL % 0.5 % (0.0-0.4); Basophil (Absolute #) 0.02 (0-0.4); Eosinophil % 1.3 % (0.00-5.0); Eosinophil (Absolute #) 0.05 (0-0.5); Hemoglobin 12.2 gm/dl (12.0-16.0); Lymphocyte (Absolute #) 1.08 (1.0-4.6); Lymphocytes % 28.1 % (24.0-44.0); Mean Cell Volume 82.4 fl (78-100); Mean Corpuscular Hemoglobin 26.5 pg (26-32); Mean Corpuscular Hgb Concent. 32.1 g/dl (32-36); Mean Platelet Volume 9.8 fl (7.5-11.0); Monocyte (Absolute #) 0.42 (0.0-1.3); Monocytes % 10.9 % (0.0-12.0); Neutrophil % 59.2 % (36.0-66.0); Platelet Count 303 K/mm3 (150-450); Red Blood Count 4.61 M/mm3 (4.1-5.4); Red Cell Distribution Width 18.4 % (11.5-14.0); White Blood Count 3.8 K/mm3 (4.0-10.5)
--- NOTE | 2020-08-31 11:32 | XRAY ---
Indication: Abdomen pain and distention. Gallbladder sludge on recent sonogram. Multiple contiguous axial images obtained through the abdomen and pelvis without contrast as ordered. Comparison: April 10, 2008. Lung bases demonstrates minimal right middle lobe and lingula subsegmental atelectasis/scarring. No infiltrate or effusion. Heart is not enlarged. Noncontrasted stomach and bowel loops appear nonobstructed. New 2.0 x 2.3 x 2.9 cm cystic mass immediately inferior to the transverse duodenum, possible fluid-filled duodenal diverticulum or aortocaval lymphocele. Lack of IV and enteric contrast precludes further characterization. Normal appendix. Radiopacity in the apex and ascending colon presumed ingested medication/bismuth or barium. Tiny cul-de-sac fluid presumed physiologic from rupture/leaking cyst. No walled off fluid collection or free air. Remaining liver, gallbladder, pancreas, spleen, adrenal glands, kidneys, ureters, bladder, uterus, and aorta appear unremarkable for noncontrast exam. Osseous structures intact. No ventral or inguinal hernias. Impression: 1. Tiny physiologic cul-de-sac fluid. 2. New cystic mass adjacent to the transverse duodenum, possible fluid-filled duodenal diverticulum versus aortocaval lymphocele. 3. Appendix and ascending colon radiopacities presumed ingested medication/bismuth or barium. 4. Remaining CT abdomen/pelvis without contrast exam is negative.
[2020-08-31 11:58] LABS: ALBUMIN 4.3 g/dL (3.5-5.0); ALKALINE PHOSPHATASE 70 U/L (38-126); AMYLASE 37 U/L (30-110); ANION GAP 9.8 MEQ/L (5-15); BLOOD UREA NITROGEN 4 mg/dL (7-17); CHLORIDE 109 mmol/L (98-107); Calcium 10.2 mg/dL (8.4-10.2); Carbon Dioxide 22 mmol/L (22-30); Creatinine 1 0.68 mg/dL (0.52-1.04); EST GLOMERULAR FILTRATION RATE > 60.0 ML/MIN; Glucose 100 mg/dL (74-106); LIPASE 33 U/L (23-300); Potassium 3.9 mmol/L (3.5-5.1); SGOT/AST 34 U/L (14-36); SGPT/ALT 22 U/L (0-35); SODIUM 137 mmol/L (137-145)
[2020-08-31] MEDS ORDERED: Hydromorphone 1 mg/ml Injection ONE (12:12)
[2020-08-31] MEDS ORDERED: Zofran 4 MG/2 ML VIAL ONE (12:12)
[2020-08-31] MEDS ORDERED: Sodium Chloride 0.9% 1000 ML 1,000 ML ONE (12:13)
[2020-08-31 12:23] VITALS: BP 149/100; PULSE 103; O2SAT 98
== END 2020-08-31 13:06 | disposition home or self-care (01) ==
LOC: ED 09:45
DX: R10.9 Unspecified abdominal pain (principal)
CPT/HCPCS: 36415; 74176; 80053; 82150; 83605; 83690; 85025; 96374; 96375; 99284; J1170; J2405

== ENCOUNTER 2020-11-04 10:27 | Observation (INO) | payer OTHER ==
[2020-11-04] MEDS ORDERED: Sodium Chloride 0.9% 1000 ML 1,000 ML IV STA ×2 (10:42→12:12)
[2020-11-04] MEDS ORDERED: SUBLIMAZE 100 MCG/2 ML IV ONE ×2 (10:42→12:45)
[2020-11-04] MEDS ORDERED: Zofran 4 MG/2 ML VIAL IV ONE (10:42)
[2020-11-04] MEDS ORDERED: Zofran 4 MG/2 ML VIAL ONE ×3 (10:48→16:31)
[2020-11-04] MEDS ORDERED: SUBLIMAZE 100 MCG/2 ML ONE ×3 (10:49→16:32)
[2020-11-04] MEDS ORDERED: Sodium Chloride 0.9% 1000 ML 1,000 ML ONE ×2 (10:49→12:15)
--- NOTE | 2020-11-04 10:49 | ERPHSYRPT ---
- History of Present Illness Time Seen by Provider: 11/04/20 10:45 Historian: patient Exam Limitations: no limitations Patient Subjective Stated Complaint: PT states "I had my gall bladder out in september and you guys found a mass in my lower abdomen and I have an appoint ment with [facility] next saturday but I have been vomiting more than I ever have and the pain is making it difficult to walk." Triage Nursing Assessment: Pt presented alert and oriented X 3, skin wpd Pt ambulates with a hunched over gait, able to speak in clear full sentences. Pt in no apprent respiratory distress. Physician History: Is a 45-year-old white female who presents with a complaint of severe abdominal pain located primarily in the right lower quadrant. She has had nausea and vomiting the pain is so severe she has to bend over to walk. She has had no fever chills or sweats. Symptoms of nausea and vomiting and being constipated have increased markedly in the last few days. Did have her gallbladder removed on 22 September here and a cystic duodenal mass was found she is scheduled at on 11 November for evaluation of that mass. Timing/Duration: day(s) (Will), gradual onset, worse Activities at Onset: none Quality: stabbing, throbbing Abdominal Pain Onset Location: RLQ Severity of Pain-Max: moderate Severity of Pain-Current: moderate Modifying Factors: Improves With: nothing, vomiting Associated Symptoms: nausea, vomiting Allergies/Adverse Reactions: Penicillins Allergy (Verified 08/31/20 10:01) Hives Home Medications: Hydroxyzine HCl 25 mg [Atarax 25 mg] 25 mg PO BID 08/31/20 [History] Losartan Potassium 50 mg PO DAILY 08/31/20 [History] Omeprazole 40 mg PO DAILY 08/31/20 [History] buPROPion HCl [Bupropion HCl Sr] 150 mg PO BID 08/31/20 [History] Hx Tetanus, Diphtheria Vaccination/Date Given: No Hx Influenza Vaccination/Date Given: No Hx Pneumococcal Vaccination/Date Given: No Immunizations Up to Date: Yes Travel Risk - International Travel Have you traveled outside of the country in past 3 weeks: No - Coronavirus Screening Are you exhibiting any of the following symptoms?: No Close contact with a COVID-19 positive Pt in past 14-21 Days: No - Review of Systems Constitutional: No Fever, No Chills Eyes: No Symptoms Ears, Nose, & Throat: No Symptoms Respiratory: No Cough, No Dyspnea Cardiac: No Chest Pain, No Edema, No Syncope Abdominal/Gastrointestinal: Abdominal Pain, Nausea, Vomiting, Constipation, No Diarrhea Genitourinary Symptoms: No Dysuria Musculoskeletal: No Back Pain, No Neck Pain Skin: No Rash Neurological: No Dizziness, No Focal Weakness, No Sensory Changes Psychological: No Symptoms Endocrine: No Symptoms All Other Systems: Reviewed and Negative - Past Medical History Pertinent Past Medical History: Yes Neurological History: No Pertinent History ENT History: No Pertinent History Cardiac History: No Pertinent History Respiratory History: No Pertinent History Endocrine Medical History: No Pertinent History Musculoskeletal History: Other GI Medical History: No Pertinent History History: No Pertinent History Psycho-Social History: Anxiety, Depression Female Reproductive Disorders: No Pertinent History Other Medical History: CHRONIC BACK PAIN - Past Surgical History Past Surgical History: Yes Neuro Surgical History: No Pertinent History Cardiac: No Pertinent History Respiratory: No Pertinent History Gastrointestinal: No Pertinent History Genitourinary: No Pertinent History Musculoskeletal: Other Female Surgical History: Section, Tubal Ligation Other Surgical History: SALPINGOOPHORECTOMY. Picc line, right arm. jose - Social History Smoking Status: Current every day smoker How long have you smoked: years Exposure to second hand smoke: Yes Alcohol Use: Socially Drug Use: marijuana Patient Lives Alone: No Significant Family History: no pertinent family hx - Female History Hx Last Menstrual Period: 10/26/2020 Hx Now: No - Nursing Vital Signs Nursing Vital Signs: Initial Vital Signs Temperature 97.9 F 11/04/20 10:33 Pulse Rate 122 H 11/04/20 10:33 Respiratory Rate 22 11/04/20 10:33 Blood Pressure 132/99 11/04/20 10:33 O2 Sat by Pulse Oximetry 99 11/04/20 10:33 Pain Scale Pain Intensity 6 - Physical Exam General Appearance: moderate distress, alert Eye Exam: PERRL/EOMI, eyes nml inspection Ears, Nose, Throat Exam: normal ENT inspection, pharynx normal, moist mucous membranes Neck Exam: normal inspection, non-tender, supple, full range of motion Respiratory Exam: normal breath sounds, lungs clear, No respiratory distress Cardiovascular Exam: regular rate/rhythm, normal heart sounds Gastrointestinal/Abdomen Exam: tenderness, guarding, rebound, other (Guarding and rebound in the right lower quadrant there is also decreased bowel sounds), No mass Back Exam: normal inspection, normal range of motion, No CVA tenderness, No vertebral tenderness Extremity Exam: normal inspection, normal range of motion, pelvis stable Neurologic Exam: alert, oriented x 3, cooperative, normal mood/affect, nml ce rebellar function, sensation nml, No motor deficits Skin Exam: normal color, warm, dry SpO2 Interpretation: normal SpO2: 99 O2 Delivery: Room Air - Course Nursing assessment & vital signs reviewed: Yes Ordered Tests: Active Orders 24 hr Category Date Time Status ABDOMEN AND PELVIS W CONTRAST [CT] Stat Exams 11/04/20 10:44 Completed CHEST 1 VIEW (PORTABLE) Stat Exams 11/04/20 10:43 Completed AMYLASE Stat Lab 11/04/20 10:30 Completed CBC W DIFF Stat Lab 11/04/20 10:30 Completed CMP Stat Lab 11/04/20 10:30 Completed LIPASE Stat Lab 11/04/20 10:30 Completed Lactic Acid Stat Lab 11/04/20 10:42 Completed PROTIME WITH INR Stat Lab 11/04/20 10:30 Completed UA W/RFX UR CULTURE Stat Lab 11/04/20 10:42 Ordered Medication Summary Generic Name Dose Route Start Last Admin Trade Name Freq PRN Reason Stop Dose Admin Sodium Chloride 1,000 mls @ 999 mls/hr 11/04/20 12:12 11/04/20 12:16 Sodium Chloride 0.9% 1000 Ml IV 11/04/20 13:12 999 mls/hr .Q1H1M STA Administration Discontinued Medications Generic Name Dose Route Start Last Admin Trade Name Freq PRN Reason Stop Dose Admin Fentanyl Citrate 50 mcg 11/04/20 10:42 11/04/20 10:50 Sublimaze 100 Mcg/2 Ml IV 11/04/20 10:43 50 mcg STAT ONE Administration Fentanyl Citrate Confirm 11/04/20 10:49 Sublimaze 100 Mcg/2 Ml Administered 11/04/20 10:50 Dose 100 mcg .ROUTE .STK-MED ONE Fentanyl Citrate 75 mcg 11/04/20 12:45 11/04/20 12:49 Sublimaze 100 Mcg/2 Ml IV 11/04/20 12:46 75 mcg STAT ONE Administration Fentanyl Citrate Confirm 11/04/20 12:48 Sublimaze 100 Mcg/2 Ml Administered 11/04/20 12:49 Dose 100 mcg .ROUTE .STK-MED ONE Sodium Chloride 1,000 mls @ 999 mls/hr 11/04/20 10:42 11/04/20 12:13 Sodium Chloride 0.9% 1000 Ml IV 11/04/20 11:42 Infused .Q1H1M STA Infusion Sodium Chloride Confirm 11/04/20 10:49 Sodium Chloride 0.9% 1000 Ml Administered 11/04/20 10:50 Dose 1,000 mls @ ud .ROUTE .STK-MED ONE Sodium Chloride Confirm 11/04/20 12:15 Sodium Chloride 0.9% 1000 Ml Administered 11/04/20 12:16 Dose 1,000 mls @ ud .ROUTE .STK-MED ONE Ondansetron HCl 4 mg 11/04/20 10:42 11/04/20 10:50 Zofran 4 Mg/2 Ml Vial IV 11/04/20 10:43 4 mg STAT ONE Administration Ondansetron HCl Confirm 11/04/20 10:48 Zofran 4 Mg/2 Ml Vial Administered 11/04/20 10:49 Dose 4 mg .ROUTE .STK-MED ONE Lab/Rad Data: Laboratory Result Diagrams 11/04/20 10:30 11/04/20 10:30 Laboratory Results 11/04/20 11/04/20 11/04/20 Range/Units 10:42 10:30 10:30 WBC (4.0-10.5) K/mm3 RBC (4.1-5.4) M/mm3 Hgb (12.0-16.0) gm/dl Hct (35-47) % MCV (78-100) fl MCH (26-32) pg MCHC (32-36) g/dl RDW (11.5-14.0) % Plt Count (150-450) K/mm3 MPV (7.5-11.0) fl Gran % (36.0-66.0) % Eos # (Auto) (0-0.5) Absolute Lymphs (auto) (1.0-4.6) Absolute Monos (auto) (0.0-1.3) Lymphocytes % (24.0-44.0) % Monocytes % (0.0-12.0) % Eosinophils % (0.00-5.0) % Basophils % (0.0-0.4) % Absolute Granulocytes (1.4-6.9) Basophils # (0-0.4) PT 14.6 H (9.95-12.35) SECONDS INR 1.29 (0.8-3.0) Sodium 135 L (137-145) mmol/L Potassium 3.8 (3.5-5.1) mmol/L Chloride 100 (98-107) mmol/L Carbon Dioxide 26 (22-30) mmol/L Anion Gap 12.4 (5-15) MEQ/L BUN 7 (7-17) mg/dL Creatinine 0.82 (0.52-1.04) mg/dL Estimated GFR > 60.0 ML/MIN Glucose 140 H (74-106) mg/dL Lactic Acid 1.3 (0.4-2.0) Calcium 11.2 H (8.4-10.2) mg/dL Total Bilirubin 0.50 (0.2-1.3) mg/dL AST 31 (14-36) U/L ALT 17 (0-35) U/L Alkaline Phosphatase 92 (38-126) U/L Serum Total Protein 8.1 (6.3-8.2) g/dL Albumin 4.8 (3.5-5.0) g/dL Amylase 39 (30-110) U/L Lipase 42 (23-300) U/L 11/04/20 Range/Units 10:30 WBC 9.5 (4.0-10.5) K/mm3 RBC 5.27 (4.1-5.4) M/mm3 Hgb 13.7 (12.0-16.0) gm/dl Hct 43.4 (35-47) % MCV 82.4 (78-100) fl MCH 26.0 (26-32) pg MCHC 31.6 L (32-36) g/dl RDW 18.9 H (11.5-14.0) % Plt Count 439 (150-450) K/mm3 MPV 9.4 (7.5-11.0) fl Gran % 69.1 H (36.0-66.0) % Eos # (Auto) 0.21 (0-0.5) Absolute Lymphs (auto) 2.01 (1.0-4.6) Absolute Monos (auto) 0.69 (0.0-1.3) Lymphocytes % 21.2 L (24.0-44.0) % Monocytes % 7.3 (0.0-12.0) % Eosinophils % 2.2 (0.00-5.0) % Basophils % 0.2 (0.0-0.4) % Absolute Granulocytes 6.55 (1.4-6.9) Basophils # 0.02 (0-0.4) PT (9.95-12.35) SECONDS INR (0.8-3.0) Sodium (137-145) mmol/L Potassium (3.5-5.1) mmol/L Chloride (98-107) mmol/L Carbon Dioxide (22-30) mmol/L Anion Gap (5-15) MEQ/L BUN (7-17) mg/dL Creatinine (0.52-1.04) mg/dL Estimated GFR ML/MIN Glucose (74-106) mg/dL Lactic Acid (0.4-2.0) Calcium (8.4-10.2) mg/dL Total Bilirubin (0.2-1.3) mg/dL AST (14-36) U/L ALT (0-35) U/L Alkaline Phosphatase (38-126) U/L Serum Total Protein (6.3-8.2) g/dL Albumin (3.5-5.0) g/dL Amylase (30-110) U/L Lipase (23-300) U/L - Progress Progress: unchanged Progress Note: 11/04/20 12:[address] evidence of acute appendicitis Dr. Tayla Retana was contacted and he will see the patient in anticipation of surgery after he finishes a present case at [place]. Initially he requested Zosyn however patient has an allergy to penicillin so we will substitute Mefoxin instead Discussed with : Karena - Departure Departure Disposition: Observation Clinical Impression: Acute appendicitis Condition: Stable Critical Care Time: No Referrals: JASON FUENTES NP [Primary Care Provider] -
[2020-11-04 10:56] LABS: Absolute Neutrophil Ct (ANC) 6.55 (1.4-6.9); BASOPHIL % 0.2 % (0.0-0.4); Basophil (Absolute #) 0.02 (0-0.4); Eosinophil % 2.2 % (0.00-5.0); Eosinophil (Absolute #) 0.21 (0-0.5); Hematocrit 43.4 % (35-47); Hemoglobin 13.7 gm/dl (12.0-16.0); Lymphocyte (Absolute #) 2.01 (1.0-4.6); Lymphocytes % 21.2 % (24.0-44.0); Mean Cell Volume 82.4 fl (78-100); Mean Corpuscular Hgb Concent. 31.6 g/dl (32-36); Mean Platelet Volume 9.4 fl (7.5-11.0); Monocyte (Absolute #) 0.69 (0.0-1.3); Monocytes % 7.3 % (0.0-12.0); Neutrophil % 69.1 % (36.0-66.0); Platelet Count 439 K/mm3 (150-450); Red Blood Count 5.27 M/mm3 (4.1-5.4); Red Cell Distribution Width 18.9 % (11.5-14.0); White Blood Count 9.5 K/mm3 (4.0-10.5)
[2020-11-04 11:07] LABS: ALBUMIN 4.8 g/dL (3.5-5.0); ALKALINE PHOSPHATASE 92 U/L (38-126); AMYLASE 39 U/L (30-110); ANION GAP 12.4 MEQ/L (5-15); BLOOD UREA NITROGEN 7 mg/dL (7-17); CHLORIDE 100 mmol/L (98-107); Calcium 11.2 mg/dL (8.4-10.2); Carbon Dioxide 26 mmol/L (22-30); Creatinine 1 0.82 mg/dL (0.52-1.04); EST GLOMERULAR FILTRATION RATE > 60.0 ML/MIN; Glucose 140 mg/dL (74-106); LIPASE 42 U/L (23-300); Potassium 3.8 mmol/L (3.5-5.1); SGOT/AST 31 U/L (14-36); SGPT/ALT 17 U/L (0-35); SODIUM 135 mmol/L (137-145); Total Protein 8.1 g/dL (6.3-8.2)
[2020-11-04 11:20] LABS: INR 1.29 (0.8-3.0); PROTIME 14.6 SECONDS (9.95-12.35)
--- NOTE | 2020-11-04 12:28 | XRAY ---
Indication: Right abdomen pain. Mass. Nausea and vomiting. Comparison: September 22, 2019. Portable chest again demonstrates normal heart, lungs, and bony thorax. New contrast in both systems from same day CT abdomen/pelvis exam.
--- NOTE | 2020-11-04 12:28 | XRAY ---
Indication: Right abdomen pain. Mass. Nausea and vomiting. Multiple contiguous axial images obtained through the abdomen and pelvis using 80 cc Isovue 370 contrast. Comparison: August 31, 2020. Lung bases are clear. Heart is not enlarged. There is now radiopacity throughout the entire colon either ingested medication/bismuth or a barium. Noncontrasted stomach and small bowel loops appear nonobstructed. Appendix is now prominent up to 12 mm in diameter with periappendiceal stranding favoring acute appendicitis. No free fluid/air. There has been interval cholecystectomy. New 2.4 cm simple appearing cystic mass anterior right lateral to the IVC approximately L3 level, possible lymphocele. Uterus demonstrates new small endometrial cavity fluid up to 7 mm in thickness. New 1.7 cm dominant left ovary cyst. Remaining liver, pancreas, spleen, adrenal glands, kidneys, ureters, bladder, and aorta appear unremarkable. No pathologic retroperitoneal lymphadenopathy. Osseous structures intact. Impression: 1. New CT features as detailed favoring acute appendicitis. No complications. 2. Uterus demonstrates new endometrial cavity fluid. Correlate with patient's menstrual cycle. 3. New 2.4 cm pericaval simple cystic mass as detailed, possible lymphocele 4. Radiopacities throughout the colon either ingested medication/bismuth or barium.
[2020-11-04] MEDS ORDERED: MEFOXIN 1 Gm/ D5W 50 Ml** 1 G/50 ML ML IV STA (12:57)
[2020-11-04] MEDS ORDERED: Sodium Chloride 0.9% 1000 ML 1,000 ML IV SCH (13:15)
[2020-11-04] MEDS: Hydromorphone 1 mg/ml Injection IV PRN ×2 (13:56→17:27)
[2020-11-04] MEDS: Lactated Ringers 1,000 ML IV SCH (14:34)
[2020-11-04] MEDS ORDERED: Sensorcaine 0.25% 10 ML ONE (14:37)
[2020-11-04] MEDS ORDERED: Lactated Ringers 1,000 ML IV ONE ×2 (14:37→17:09)
[2020-11-04 15:00] LABS: Appearance SLIGHTLY CLOUDY (CLEAR); Bacteria RARE /HPF (NEGATIVE); Bilirubin NEGATIVE (NEGATIVE); Blood SMALL Ery/ul (0-5); Epithelial Cells MODERATE /HPF (FEW); Glucose NEGATIVE (NEGATIVE); Ketones SMALL (NEGATIVE); Leukocyte Esterase TRACE (NEGATIVE); Mucus SLIGHT /HPF (NEGATIVE); Nitrite NEGATIVE (NEGATIVE); Protein,Urine Dip NEGATIVE (Negative); Urobilinogen NEGATIVE mg/dL (0-1)
[2020-11-04] MEDS ORDERED: MEFOXIN 2 GM PREMIX** 2 GM/50 ML ML IV SCH (15:00)
[2020-11-04] MEDS ORDERED: SUBLIMAZE 250 MCG/5 ML ONE (15:18)
[2020-11-04] MEDS ORDERED: Zemuron 100 MG/10 ML ONE (15:18)
[2020-11-04] MEDS ORDERED: Quelicin Fliptop 200 MG/10 ML ONE (15:18)
[2020-11-04] MEDS ORDERED: DIPRIVAN 200 MG/20 ML IV ONE (15:18)
[2020-11-04] MEDS ORDERED: Versed 2 MG/2 ML Injection ONE (15:18)
[2020-11-04] MEDS ORDERED: TORAdol 30 mg Injection ONE (15:52)
[2020-11-04] MEDS ORDERED: BRIDION 200MG/2ML IV ONE (16:11)
[2020-11-04] MEDS ORDERED: Hydromorphone 1 mg/ml Injection ONE (16:32)
[2020-11-04] MEDS ORDERED: TYLENOL 325 MG PO PRN (17:31)
[2020-11-04] MEDS ORDERED: FEVERALL 650 MG RC PRN (17:32)
[2020-11-04] MEDS ORDERED: NORCO 5/325 MG PO PRN (17:33)
[2020-11-04] MEDS: Protonix 40MG Tablet PO SCH (18:00)
[2020-11-04] MEDS: Cozaar 50 MG PO SCH (18:00)
[2020-11-04] MEDS: MORPHINE SULFATE 4 MG INJ IV PRN (19:49)
[2020-11-04] MEDS: Zofran 4 MG/2 ML VIAL IVIM PRN (20:25)
[2020-11-04] MEDS: ATARAX 25 MG PO SCH (22:12)
[2020-11-04] MEDS: MEFOXIN 2 GM PREMIX** 2 GM/50 ML ML IV SCH (22:13)
[2020-11-04] MEDS: Wellbutrin SR 150 MG PO SCH (22:13)
[2020-11-05] MEDS: MORPHINE SULFATE 4 MG INJ IV PRN ×3 (00:07→08:34)
[2020-11-05] MEDS: Zofran 4 MG/2 ML VIAL IVIM PRN (04:27)
[2020-11-05] MEDS: MEFOXIN 2 GM PREMIX** 2 GM/50 ML ML IV SCH (05:59)
[2020-11-05] MEDS: Lactated Ringers 1,000 ML IV SCH (06:00)
[2020-11-05] MEDS ORDERED: NON-FORMULARY ITEM (Losartan Potassium [Losartan Potassium] 50 MG) PO SCH (10:00)
[2020-11-05] MEDS ORDERED: NON-FORMULARY ITEM (Omeprazole [Omeprazole] 40 MG) PO SCH (10:00)
[2020-11-05] MEDS: Protonix 40MG Tablet PO SCH (11:08)
[2020-11-05] MEDS: Cozaar 50 MG PO SCH (11:08)
[2020-11-05] MEDS: ATARAX 25 MG PO SCH (11:08)
[2020-11-05] MEDS: Wellbutrin SR 150 MG PO SCH (11:38)
[2020-11-05 12:23] VITALS: BP 134/69; PULSE 82; O2SAT 96
--- NOTE | 2020-11-07 09:52 | HP ---
CHIEF COMPLAINT: Right lower quadrant pain. HISTORY OF PRESENT ILLNESS: This patient presents with acute onset right lower quadrant pain last night with nausea and vomiting. Denies chest pain, shortness of breath, fever or chills. She recently had a laparoscopic cholecystectomy last month with my partner, Dr. Young. She is also being worked up for gastroparesis and it sounds like she is having a consultation in [place] for gastric pacemaker evaluation. She denies any chest pain or shortness of breath. PAST MEDICAL HISTORY: None. PAST SURGICAL HISTORY: Laparoscopic cholecystectomy. Tubal ligation. MEDICATIONS: Medications reviewed. See MAR. ALLERGIES: PENICILLIN. SOCIAL HISTORY: Positive tobacco. FAMILY HISTORY: No inflammatory bowel disease. PHYSICAL EXAMINATION: GENERAL: Mild distress. HEENT: Sclera nonicteric. Extraocular movements intact. NECK: Supple. No JVD. CHEST: Nonlabored breathing. ABDOMEN: Soft, nondistended, tender to palpation right lower quadrant with guarding. NEURO: Awake, alert, oriented. PSYCH: Appropriate mood and affect. LAB DATA AND TESTS: CT scan showed acute appendicitis, possible lymphocele next to the inferior vena cava. ASSESSMENT: Acute appendicitis. PLAN: Risks and benefits of surgery discussed in depth with the patient. The patient would like to proceed with surgery. Plan for laparoscopic, possible open appendectomy.
--- NOTE | 2020-11-07 10:04 | OP ---
SURGERY DATE/TIME: 11/04/2020 1526 PREOPERATIVE DIAGNOSIS: Acute appendicitis. POSTOPERATIVE DIAGNOSIS: Acute appendicitis. PROCEDURE: Laparoscopic appendectomy. SURGEON: Ajit Retana M.D. ANESTHESIA: General. ESTIMATED BLOOD LOSS: 20 cc. COMPLICATIONS: None. SPECIMEN: Appendix. FINDINGS: Acute uncomplicated appendicitis. INDICATION: This patient presents with signs, symptoms and CT scan evidence of acute appendicitis. The patient discussed risks and benefits of surgery and would like to proceed. DESCRIPTION OF PROCEDURE: The patient was brought to the operating room, placed supine on operating table, placed under general anesthesia. Left arm was tucked. The abdomen was prepped and draped in sterile fashion. Veress needle inserted through small incision above the umbilicus through her prior scar. Pneumoperitoneum obtained. A 5 mm optical trocar inserted and under direct visualization the abdomen was entered. Area on entry was inspected. There did not appear to be any inadvertent injury. Additional 12 mm and 5 mm trocar were placed in the left lower abdomen and mid abdomen. The patient placed in Trendelenburg position and rolled to the left. The appendix was quite inflamed and covered in fat. The small bowel was peeled off the appendix. The mesoappendix was dissected to create a window between the base of the appendix and mesoappendix. The mesoappendix transected with [place] LigaSure. The base of the appendix quite fat and base was transected from its juncture with the cecum with a blue EndoGIA stapler. The staple line looked excellent. The mesoappendix was hemostatic. The specimen was removed with a bag. Trocar site was closed with 0 Vicryl suture with suture passer. A small amount of blood was suctioned out of the abdomen. The trocars were removed under direct visualization. Abdomen desufflated. The wound injected with 0.25% Marcaine. Wounds closed with 4-0 Vicryl sutures. Steri-Strips and dressings were applied. The patient was recovered and taken to PACU in stable condition.
== END 2020-11-05 12:05 | disposition home or self-care (01) ==
LOC: ED 10:27 → MED SURG 14:10
PROVIDERS: ADMIT Surgery; ATTEND Surgery
DX: K35.80 Unspecified acute appendicitis (principal); R10.31 Right lower quadrant pain; Z79.899 Other long term (current) drug therapy
CPT/HCPCS: 36000; 36415; 44970; 71045; 74177; 80053; 81001; 82150; 83605; 83690; 85025; 85610; 93005; 96360; 96361; 96365; 96374; 96375; 96376; 99285; G0378; 99140; J0330; J0694; J1170; J1885; J2250; J2270; J2405; J2704; J3010; A9270-GY

== ENCOUNTER 2020-11-08 20:39 | Emergency (ER) | payer OTHER ==
[2020-11-08] MEDS ORDERED: MORPHINE SULFATE 4 MG INJ IV ONE (20:54)
[2020-11-08] MEDS ORDERED: Sodium Chloride 0.9% 1000 ML 1,000 ML IV SCH (21:00)
--- NOTE | 2020-11-08 21:07 | ERPHSYRPT ---
- History of Present Illness Time Seen by Provider: 11/08/20 20:55 Historian: patient Patient Subjective Stated Complaint: . Triage Nursing Assessment: . Physician History: Patient is a 45-year-old female postop day 4 status post appendectomy presents to our ED with complaints of left lower quadrant pain. Pain started yesterday and has been progressive. Pain described as an ache that is well localized. No radiation. No interval trauma. No fever. No nausea or vomiting. Patient has not had a bowel movement in 1 week. Symptoms are mild to moderate in intensity. No specific worsening or improving factors. Patient voices no other complaints or concerns at this time. Timing/Duration: today Activities at Onset: none Quality: aching Abdominal Pain Onset Location: LLQ Pain Radiation: no radiation Severity of Pain-Max: moderate Severity of Pain-Current: mild Associated Symptoms: denies symptoms Previous symptoms: no prior history Allergies/Adverse Reactions: Penicillins Allergy (Verified 11/08/20 21:01) Hives Home Medications: Hydroxyzine HCl 25 mg [Atarax 25 mg] 25 mg PO BID 08/31/20 [History] Losartan Potassium 50 mg PO DAILY 08/31/20 [History] Omeprazole 40 mg PO DAILY 08/31/20 [History] buPROPion HCl [Bupropion HCl Sr] 150 mg PO BID 08/31/20 [History] Hx Tetanus, Diphtheria Vaccination/Date Given: No Hx Influenza Vaccination/Date Given: No Hx Pneumococcal Vaccination/Date Given: No Immunizations Up to Date: Yes Travel Risk - International Travel Have you traveled outside of the country in past 3 weeks: No - Coronavirus Screening Are you exhibiting any of the following symptoms?: No Close contact with a COVID-19 positive Pt in past 14-21 Days: No - Review of Systems Constitutional: No Symptoms, No Fever, No Chills Eyes: No Symptoms Ears, Nose, & Throat: No Symptoms Respiratory: No Symptoms, No Cough, No Dyspnea Cardiac: No Symptoms, No Chest Pain, No Edema, No Syncope Abdominal/Gastrointestinal: No Symptoms, No Abdominal Pain, No Nausea, No Vomiting, No Diarrhea Genitourinary Symptoms: No Symptoms, No Dysuria Musculoskeletal: No Symptoms, No Back Pain, No Neck Pain Skin: No Symptoms, No Rash Neurological: No Symptoms, No Dizziness, No Focal Weakness, No Sensory Changes Psychological: No Symptoms Endocrine: No Symptoms Hematologic/Lymphatic: No Symptoms Immunological/Allergic: No Symptoms All Other Systems: Reviewed and Negative - Past Medical History Pertinent Past Medical History: Yes Neurological History: No Pertinent History ENT History: No Pertinent History Cardiac History: No Pertinent History Respiratory History: No Pertinent History Endocrine Medical History: No Pertinent History Musculoskeletal History: Other GI Medical History: No Pertinent History History: No Pertinent History Psycho-Social History: Anxiety, Depression Female Reproductive Disorders: No Pertinent History Other Medical History: CHRONIC BACK PAIN - Past Surgical History Past Surgical History: Yes Neuro Surgical History: No Pertinent History Cardiac: No Pertinent History Respiratory: No Pertinent History Gastrointestinal: Appendectomy, Cholecystectomy Genitourinary: No Pertinent History Musculoskeletal: Other Female Surgical History: Section, Tubal Ligation Other Surgical History: SALPINGOOPHORECTOMY. Picc line, right arm. cyst in abdomen - Social History Smoking Status: Current every day smoker How long have you smoked: 10 years Exposure to second hand smoke: Yes Alcohol Use: Socially Drug Use: marijuana Patient Lives Alone: No Significant Family History: no pertinent family hx - Female History Hx Last Menstrual Period: Tubal Hx Now: No - Nursing Vital Signs Nursing Vital Signs: Initial Vital Signs Temperature 98.3 F 11/08/20 20:52 Pulse Rate 86 11/08/20 20:52 Respiratory Rate 18 11/08/20 20:52 Blood Pressure 199/127 11/08/20 20:52 O2 Sat by Pulse Oximetry 99 11/08/20 20:52 Pain Scale Pain Intensity 5 - Physical Exam General Appearance: no apparent distress, alert Eye Exam: PERRL/EOMI, eyes nml inspection Ears, Nose, Throat Exam: normal ENT inspection, pharynx normal, moist mucous membranes Neck Exam: normal inspection, non-tender, supple, full range of motion Respiratory Exam: normal breath sounds, lungs clear, No respiratory distress Cardiovascular Exam: regular rate/rhythm, normal heart sounds Gastrointestinal/Abdomen Exam: soft, normal bowel sounds, tenderness (Postoperative dressings intact. Tenderness to palpation left lower quadrant. No rebound. No guarding.), No mass, No guarding, No pulsatile mass, No hernia, No organomegaly, No splenomegaly Back Exam: normal inspection, normal range of motion, No CVA tenderness, No vertebral tenderness Extremity Exam: normal inspection, normal range of motion, pelvis stable Neurologic Exam: alert, oriented x 3, cooperative, normal mood/affect, nml cerebellar function, sensation nml, No motor deficits Skin Exam: normal color, warm, dry SpO2 Interpretation: normal SpO2: 99 O2 Delivery: Room Air - Course Nursing assessment & vital signs reviewed: Yes - CT Exams Abdomen/Pelvis CT Interpretation: Tele-radiologist Report (Me. New moderate diffuse fecal stasis and 1.5 cm collapsing left ovarian cyst with small cul-de-sac fluid. Also new minimal right lower lobe patchy groundglass airspace disease.) Ordered Tests: Active Orders 24 hr Category Date Time Status IV Insertion STAT Care 11/08/20 20:52 Active ABDOMEN AND PELVIS W CONTRAST [CT] Stat Exams 11/08/20 21:33 Taken CBC W DIFF Stat Lab 11/08/20 21:20 Completed CMP Stat Lab 11/08/20 21:20 Completed LIPASE Stat Lab 11/08/20 21:20 Completed Manual Differential NC Stat Lab 11/08/20 21:20 Completed UA W/RFX UR CULTURE Stat Lab 11/08/20 21:06 Completed Medication Summary Generic Name Dose Route Start Last Admin Trade Name Freq PRN Reason Stop Dose Admin Sodium Chloride 1,000 mls @ 100 mls/hr 11/08/20 21:00 11/08/20 21:43 Sodium Chloride 0.9% 1000 Ml IV 12/08/20 20:59 100 mls/hr .Q10H EVERETTE Administration Discontinued Medications Generic Name Dose Route Start Last Admin Trade Name Freq PRN Reason Stop Dose Admin Morphine Sulfate 4 mg 11/08/20 20:54 11/08/20 21:42 Morphine Sulfate 4 Mg Inj IV 11/08/20 20:55 4 mg STAT ONE Administration Morphine Sulfate Confirm 11/08/20 21:39 Morphine Sulfate 4 Mg Inj Administered 11/08/20 21:40 Dose 4 mg .ROUTE [employer]RFEye[employer] ONE Lab/Rad Data: Laboratory Result Diagrams 11/08/20 21:20 11/08/20 21:20 Laboratory Results 11/08/20 11/08/20 11/08/20 Range/Units 21:20 21:20 21:06 WBC 6.3 (4.0-10.5) K/mm3 RBC 4.77 (4.1-5.4) M/mm3 Hgb 12.3 (12.0-16.0) gm/dl Hct 39.8 (35-47) % MCV 83.4 (78-100) fl MCH 25.8 L (26-32) pg MCHC 30.9 L (32-36) g/dl RDW 18.9 H (11.5-14.0) % Plt Count 407 (150-450) K/mm3 MPV 9.7 (7.5-11.0) fl Sodium 138 (137-145) mmol/L Potassium 3.6 (3.5-5.1) mmol/L Chloride 101 (98-107) mmol/L Carbon Dioxide 29 (22-30) mmol/L Anion Gap 11.4 (5-15) MEQ/L BUN 5 L (7-17) mg/dL Creatinine 0.64 (0.52-1.04) mg/dL Estimated GFR > 60.0 ML/MIN Glucose 99 (74-106) mg/dL Calcium 11.0 H (8.4-10.2) mg/dL Total Bilirubin 0.30 (0.2-1.3) mg/dL AST 26 (14-36) U/L ALT 14 (0-35) U/L Alkaline Phosphatase 72 (38-126) U/L Serum Total Protein 7.7 (6.3-8.2) g/dL Albumin 4.7 (3.5-5.0) g/dL Lipase 34 (23-300) U/L Urine Color COLORLESS (YELLOW) Urine Appearance CLEAR (CLEAR) Urine pH 9.0 (5-6) Ur Specific [place] 1.003 (1.005-1.025) Urine Protein NEGATIVE (Negative) Urine Ketones NEGATIVE (NEGATIVE) Urine Blood NEGATIVE (0-5) Sivakumar/ul Urine Nitrite NEGATIVE (NEGATIVE) Urine Bilirubin NEGATIVE (NEGATIVE) Urine Urobilinogen NEGATIVE (0-1) mg/dL Ur Leukocyte Esterase TRACE (NEGATIVE) Urine WBC (Auto) 3-5 (0-5) /HPF Urine RBC (Auto) NONE (0-2) /HPF U Hyaline Cast (Auto) 0-2 (0-2) /LPF U Epithel Cells (Auto) RARE (FEW) /HPF Urine Bacteria (Auto) NONE (NEGATIVE) /HPF Urine Culture Reflexed NO (NO) Urine Glucose NEGATIVE (NEGATIVE) mg/dL - Progress Progress: improved Progress Note: 11/08/20 22:44 Patient reassessed. Pain resolved. Vitals stable. CT reveals moderate fecal stasis and 1.5 cm collapsing left ovarian cyst with small cul-de-sac fluid. Right lower lobe patchy groundglass airspace disease observed. However patient does not have any respiratory complaints no shortness of breath lungs are clear patient is afebrile no leukocytosis. No indication for antibiotics at this time. Case discussed with Dr. Bray covering Dr. Ajit Retana. There is nothing surgical at this time. Patient may be discharged home with a laxative a nd pain control. Patient will take [id number] MiraLAX and Tylenol as needed for pain control. She will follow-up with Dr. Retana on Saturday as scheduled. Patient states she is ready for discharge. Will discharge home at this time. She voices no other complaints concerns at this time. Discussed with .: Sisi Will see patient in: office Counseled pt/family regarding: lab results, diagnosis, need for follow-up, rad results - Departure Departure Disposition: Home Clinical Impression: Constipation, Left ovarian cyst, Ground glass opacity present on imaging of lung Condition: Stable Critical Care Time: No Referrals: JASON FUENTES, JAN [Primary Care Provider] - Additional Instructions: Discharge/Care Plan REMA LANIER was seen on 11/08/20 in the Emergency Room. The patient was counseled regarding Diagnosis,Lab results, Imaging studies, need for follow up and when to return to the Emergency Room. Prescriptions given: Discharge Note I have spoken with the patient and/or caregivers. I have explained the patient's condition, diagnosis and treatment plan based on the information available to me at this time. I have answered the patient's and/or caregiver's questions and addressed any concerns. The patient and/or caregivers have as good understanding of the patient's diagnosis, condition and treatment plan as can be expected at this point. The vital signs have been stable. The patient's condition is stable and appropriate for discharge from the emergency department. The patient will pursue further outpatient evaluation with the primary care physician or other designated or consulting physician as outlined in the discharge instructions. The patient and/or caregivers are agreeable to this plan of care and follow-up instructions have been explained in detail. The patient and/or caregivers have received these instruction. The patient/and or caregivers are aware that any significant change in condition or worsening of symptoms should prompt an immediate return to this or the closest emergency department or call 911.
[2020-11-08 21:10] LABS: Appearance CLEAR (CLEAR); Bilirubin NEGATIVE (NEGATIVE); Blood NEGATIVE Ery/ul (0-5); Epithelial Cells RARE /HPF (FEW); Glucose NEGATIVE (NEGATIVE); Hyaline Casts 0-2 /LPF (0-2); Ketones NEGATIVE (NEGATIVE); Leukocyte Esterase TRACE (NEGATIVE); Nitrite NEGATIVE (NEGATIVE); Protein,Urine Dip NEGATIVE (Negative); Specific Gravity 1.003 (1.005-1.025); Urobilinogen NEGATIVE mg/dL (0-1)
[2020-11-08 21:37] LABS: Hematocrit 39.8 % (35-47); Hemoglobin 12.3 gm/dl (12.0-16.0); Mean Cell Volume 83.4 fl (78-100); Mean Corpuscular Hemoglobin 25.8 pg (26-32); Mean Corpuscular Hgb Concent. 30.9 g/dl (32-36); Mean Platelet Volume 9.7 fl (7.5-11.0); Platelet Count 407 K/mm3 (150-450); Red Blood Count 4.77 M/mm3 (4.1-5.4); Red Cell Distribution Width 18.9 % (11.5-14.0); White Blood Count 6.3 K/mm3 (4.0-10.5)
[2020-11-08] MEDS ORDERED: Sodium Chloride 0.9% 1000 ML 1,000 ML ONE (21:39)
[2020-11-08] MEDS ORDERED: MORPHINE SULFATE 4 MG INJ ONE (21:39)
[2020-11-08 22:03] LABS: ALBUMIN 4.7 g/dL (3.5-5.0); ALKALINE PHOSPHATASE 72 U/L (38-126); ANION GAP 11.4 MEQ/L (5-15); BLOOD UREA NITROGEN 5 mg/dL (7-17); CHLORIDE 101 mmol/L (98-107); Carbon Dioxide 29 mmol/L (22-30); Creatinine 1 0.64 mg/dL (0.52-1.04); EST GLOMERULAR FILTRATION RATE > 60.0 ML/MIN; Glucose 99 mg/dL (74-106); LIPASE 34 U/L (23-300); Potassium 3.6 mmol/L (3.5-5.1); SGOT/AST 26 U/L (14-36); SGPT/ALT 14 U/L (0-35); SODIUM 138 mmol/L (137-145); Total Protein 7.7 g/dL (6.3-8.2)
[2020-11-08 22:11] VITALS: BP 171/108; PULSE 74
[2020-11-08 22:31] VITALS: O2SAT 99
[2020-11-09 01:58] LABS: Basophil 1 % (0.0-1.0); Eosinophil 1 % (0.00-3.0); Lymphocytes 44 % (24-44); Monocyte 4 % (0.0-12.0); Neutrophils 50 % (36.0-66.0); Total Cells Counted 100
[2020-11-09 01:59] LABS: ANISOCYTOSIS 1+; Platelet Estimate NORMAL (NORMAL)
--- NOTE | 2020-11-09 08:53 | XRAY ---
Indication: Left abdomen pain. Status post appendectomy 4 days ago. Multiple contiguous axial images obtained through the abdomen and pelvis using 80 cc Isovue 370 contrast. Comparison: November 04, 2020. Lung bases now demonstrates minimal patchy right lower lobe groundglass airspace disease. No consolidation/effusion. Heart is not enlarged. Stomach is distended with food/fluid. Noncontrasted stomach and bowel loops appear nonobstructed. Status post appendectomy. There is now moderate diffuse scattered colonic fecal debris. Descending/sigmoid colon demonstrates intraluminal radiopacities either ingested bismuth/medication or barium. No walled off fluid collection or free air. New 1.5 cm collapsing left ovary cyst with small cul-de-sac fluid. Stable 2.4 cm simple appearing cyst anterior right lateral to the IVC, possible lymphocele. Again previous cholecystectomy. Remaining liver, pancreas, spleen, adrenal glands, kidneys, ureters, bladder, uterus, and aorta appear unremarkable. No pathologic retroperitoneal lymphadenopathy. Osseous structures remain intact. Impression: 1. Status post appendectomy without complications. 2. New collapsing left ovary cyst with small cul-de-sac fluid. 3. New moderate diffuse fecal stasis. 4. New right lower lobe patchy groundglass airspace disease. 5. Stable small pericaval simple cystic mass possible lymphocele.
== END 2020-11-08 23:03 | disposition home or self-care (01) ==
LOC: ED 20:39
DX: R10.32 Left lower quadrant pain (principal); K59.00 Constipation, unspecified; N83.202 Unspecified ovarian cyst, left side; R93.89 Abnormal findings on diagnostic imaging of other specified body structures
CPT/HCPCS: 36000; 36415; 74177; 80053; 81001; 83690; 85025; 96374; 99284; J2270

== ENCOUNTER 2022-03-04 18:31 | Emergency (ER) | payer OTHER ==
--- NOTE | 2022-03-04 20:05 | ERPHSYRPT ---
- History of Present Illness Time Seen by Provider: 03/04/22 20:04 Source: patient Exam Limitations: no limitations Patient Subjective Stated Complaint: Pt went for an infusion of antibiotics approx 1 hour before and she has a PICC line in her right upper arm and bandage was changed and when she got home blood was pouring out of the sight Triage Nursing Assessment: Pt brought to the ER by a family member, hypertensive, rates pain in right upper arm as 8/10, removed bandage to PICC line and bleeding has stopped, arm is swollen and pt having severe pain, has had 4 out of 14 antibiotic treatments due to a dog bite to her foot, pulses normal, skin n/w/d Physician History: pt had infusion in [place] and then it started bleeding and has pain in muscle which previously was torn. Severity: moderate Modifying Factors: Improves With: movement Associated Symptoms: denies symptoms Allergies/Adverse Reactions: Penicillins Allergy (Verified 03/04/22 18:48) Hives Hx Tetanus, Diphtheria Vaccination/Date Given: No Travel Risk - International Travel Have you traveled outside of the country in past 3 weeks: No - Coronavirus Screening Are you exhibiting any of the following symptoms?: No Close contact with a COVID-19 positive Pt in past 14-21 Days: No - Vaccine Status Have you recieved a Covid-19 vaccination: No - Review of Systems Constitutional: No Fever, No Chills Eyes: No Symptoms Ears, Nose, & Throat: No Symptoms Respiratory: No Cough, No Dyspnea Cardiac: No Chest Pain, No Edema, No Syncope Abdominal/Gastrointestinal: No Abdominal Pain, No Nausea, No Vomiting, No Diarrhea Genitourinary Symptoms: No Dysuria Musculoskeletal: No Back Pain, No Neck Pain Skin: No Rash Neurological: No Dizziness, No Focal Weakness, No Sensory Changes Psychological: No Symptoms Endocrine: No Symptoms All Other Systems: Reviewed and Negative - Past Medical History Pertinent Past Medical History: No Neurological History: No Pertinent History ENT History: No Pertinent History Cardiac History: Hypertension Respiratory History: No Pertinent History Endocrine Medical History: No Pertinent History Musculoskeletal History: No Pertinent History GI Medical History: GERD History: No Pertinent History Psycho-Social History: Anxiety Female Reproductive Disorders: No Pertinent History - Past Surgical History Past Surgical History: Yes Neuro Surgical History: No Pertinent History Cardiac: No Pertinent History Respiratory: No Pertinent History Gastrointestinal: Appendectomy, Cholecystectomy Genitourinary: No Pertinent History Musculoskeletal: No Pertinent History Female Surgical History: Tubal Ligation Other Surgical History: left amr hardware foot surgery from dog bite - Social History Smoking Status: Never smoker Exposure to second hand smoke: Yes Drug Use: none Patient Lives Alone: No - Female History Hx Now: No - Nursing Vital Signs Nursing Vital Signs: Initial Vital Signs Temperature 98.4 F 03/04/22 18:34 Pulse Rate 100 H 03/04/22 18:34 Blood Pressure 147/104 03/04/22 18:34 O2 Sat by Pulse Oximetry 100 03/04/22 18:34 Pain Scale Pain Intensity 4 - Physical Exam General Appearance: no apparent distress, alert Eye Exam: PERRL/EOMI, eyes nml inspection Ears, Nose, Throat Exam: normal ENT inspection, TMs normal, pharynx normal, moist mucous membranes Neck Exam: normal inspection, non-tender, supple, full range of motion Respiratory Exam: normal breath sounds, lungs clear, No respiratory distress Cardiovascular Exam: regular rate/rhythm, normal heart sounds, normal peripheral pulses Gastrointestinal/Abdomen Exam: soft, normal bowel sounds, No tenderness, No mass Back Exam: normal inspection, normal range of motion, No CVA tenderness, No vertebral tenderness Extremity Exam: normal inspection, normal range of motion, pelvis stable, other (tender right upper arm with ? infiltration onto chest. ) Neurologic Exam: alert, oriented x 3, cooperative, normal mood/affect, nml cerebellar function, nml station & gait, sensation nml, No motor deficits Skin Exam: normal color, warm, dry, No rash Lymphatic Exam: No adenopathy SpO2: 100 - Course Nursing assessment & vital signs reviewed: Yes - CT Exams Right Upper Extremity CT Interpretation: Tele-radiologist Report, Other (picc line in place without complications seen.) Chest CT Interpretation: Tele-radiologist Report, Other (PICC in place) Ordered Tests: Active Orders 24 hr Category Date Time Status CHEST WITHOUT CONTRAST [CT] Stat Exams 03/04/22 20:06 Taken UPPER EXTREMITY W/O CONTRAST [CT] Stat Exams 03/04/22 20:06 Taken Medication Summary Discontinued Medications Generic Name Dose Route Start Last Admin Trade Name Freq PRN Reason Stop Dose Admin Hydromorphone HCl 1 mg 03/04/22 20:08 03/04/22 21:45 Hydromorphone 1 Mg/1ml Inj 1 Mg/Ml Syringe IV 03/04/22 20:09 Not Given STAT ONE Ondansetron HCl 4 mg 03/04/22 20:07 03/04/22 21:45 Ondansetron Hcl 4 Mg/2 Ml Vial IV 03/04/22 20:08 Not Given STAT ONE - Progress Progress: improved, re-examined Progress Note: 03/04/22 21:40 function of PIC check by RN and found to be working well and in place on CT. more secure dressing placed to prevent leaking. 03/04/22 21:42 no sign of infection or blockage or infiltration. Counseled pt/family regarding: lab results, diagnosis, need for follow-up, rad results - Departure Departure Disposition: Home Clinical Impression: PIC line (peripherally inserted central catheter) flush, picc line evaluation Condition: Good Critical Care Time: No Referrals: ALBERTO ZIMMER [Primary Care Provider] - Follow up/PCP as directed Additional Instructions: see the infusion team to recheck function tomorrow prior to use. Return meantime if further concerns or leaking. follow-up blood pressure with your
[2022-03-04] MEDS ORDERED: Zofran 4 MG/2 ML VIAL IV ONE (20:07)
[2022-03-04] MEDS ORDERED: Hydromorphone 1 mg/ml Injection IV ONE (20:08)
[2022-03-04 21:42] VITALS: BP 129/87; PULSE 88
[2022-03-04 21:45] VITALS: O2SAT 100
--- NOTE | 2022-03-05 07:47 | XRAY ---
Indication: Right arm pain and swelling. Bleeding from PICC line insertion. Multiple contiguous axial images obtained through the chest without contrast. Comparison: None Lungs are inflated and clear. Heart not enlarged. Right arm PICC line with tip at aortocaval junction. Right upper extremity PICC line insertion site is negative for focal fluid collection or subcutaneous emphysema. Aorta is normal in course and caliber. No pathologic mediastinal lymphadenopathy. Bony thorax intact with mild degenerative changes throughout the spine. Limited upper abdomen demonstrates cholecystectomy clips. Impression: 1. Right upper extremity PICC line in situ without complications. 2. Remaining CT chest without contrast exam is normal. Comment: Preliminary interpretation made by C. No critical discrepancy.
--- NOTE | 2022-03-05 07:49 | XRAY ---
Indication: Right arm pain and swelling. Bleeding from PICC line insertion. Multiple contiguous axial images obtained through the right upper extremity to include the shoulder and elbow. Sagittal and coronal reformatted images obtained. Comparison: None Right upper extremity PICC line insertion site is negative for focal fluid collection or subcutaneous emphysema. No suspicious solid/cystic soft tissue mass. Visualized osseous structures including right shoulder/elbow intact. CT chest reported separately. Impression: Right upper extremity PICC line in situ without complications. Comment: Preliminary interpretation made by [facility]. No critical discrepancy.
== END 2022-03-04 21:51 | disposition home or self-care (01) ==
LOC: MERGE 18:31 → ED 18:31
DX: T82.534A Leakage of infusion catheter, initial encounter (principal); M79.621 Pain in right upper arm; I10 Essential (primary) hypertension
CPT/HCPCS: 71250; 73200; 99284

== ENCOUNTER 2022-04-21 13:48 | Emergency (ER) | payer OTHER ==
[2022-04-21 14:09] VITALS: O2SAT 100
[2022-04-21] MEDS ORDERED: TORAdol 30 mg Injection IV ONE (14:49)
[2022-04-21] MEDS ORDERED: TORAdol 30 mg Injection ONE (14:50)
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
[2022-04-21] MEDS ORDERED: SUBLIMAZE 100 MCG/2 ML IV ONE (15:23)
[2022-04-21] MEDS ORDERED: Zofran 4 MG/2 ML VIAL ONE (15:24)
[2022-04-21] MEDS ORDERED: Zofran 4 MG/2 ML VIAL IV ONE (15:24)
[2022-04-21] MEDS ORDERED: SUBLIMAZE 100 MCG/2 ML ONE (15:24)
[2022-04-21 16:01] VITALS: BP 168/104; PULSE 77
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
== END 2022-04-21 16:11 | disposition home or self-care (01) ==
LOC: ED 13:48
DX: S09.90XA Unspecified injury of head, initial encounter (principal); S16.1XXA Strain of muscle, fascia and tendon at neck level, initial encounter; S90.32XA Contusion of left foot, initial encounter; S20.214A Contusion of middle front wall of thorax, initial encounter; V53.5XXA Driver of pick-up truck or van injured in collision with car, pick-up truck or van in traffic accident, initial encounter; R51.9 Headache, unspecified; M54.2 Cervicalgia; R07.9 Chest pain, unspecified; M25.552 Pain in left hip; M79.672 Pain in left foot; I10 Essential (primary) hypertension; Z28.310 Unvaccinated for COVID-19; Z79.891 Long term (current) use of opiate analgesic
CPT/HCPCS: 70450; 71250; 72125; 73630; 74176; 96374; 96375; 99285; J1885; J2405; J3010

== ENCOUNTER 2022-08-14 15:12 | Emergency (ER) | payer OTHER ==
[2022-08-14 15:57] LABS: Appearance CLEAR (CLEAR); Bilirubin NEGATIVE (NEGATIVE); Dipstick done @ ? MAIN LAB; Glucose NEGATIVE (NEGATIVE); Ketones NEGATIVE (NEGATIVE); Nitrite NEGATIVE (NEGATIVE); Ph 7.5 (5-6); Protein,Urine Dip NEGATIVE (Negative); RBC NEGATIVE Ery/ul (0-5); Urobilinogen 0.2 mg/dL (0-1)
[2022-08-14 16:03] LABS: Epithelial Cells RARE /HPF (FEW); Mucus SLIGHT /HPF (NEGATIVE)
[2022-08-14 16:08] LABS: Urine Cultured Indicated? NO
[2022-08-14] MEDS ORDERED: TORAdol 30 mg Injection ONE (16:13)
[2022-08-14] MEDS: TORAdol 30 mg Injection IV ONE (16:14)
[2022-08-14] MEDS ORDERED: Sodium Chloride 0.9% 1000 ML 1,000 ML ONE (16:14)
[2022-08-14] MEDS: Sodium Chloride 0.9% 1000 ML 1,000 ML IV STA (16:14)
--- NOTE | 2022-08-14 16:17 | XRAY ---
Indication: Pneumonia. Vomiting. Comparison: November 04, 2020 Portable chest again demonstrates normal heart, lungs, and bony thorax.
[2022-08-14 16:19] LABS: Mean Cell Volume 77.9 fL (78-100); Mean Corpuscular Hemoglobin 23.8 pg (26-32); Mean Corpuscular Hgb Concent. 30.6 g/dL (32-36); Red Blood Count 4.62 x10^6/uL (4.1-5.4); Red Cell Distribution Width 17.2 % (11.5-14.0); White Blood Count 7.5 x10^3/uL (4.0-10.5)
[2022-08-14 16:20] LABS: Absolute Neutrophil Ct (ANC) 6.51 x10^3/uL (1.4-6.9); Basophil (Absolute #) 0.03 x10^3/uL (0-0.4); Eosinophil % 1.1 % (0.00-5.0); Eosinophil (Absolute #) 0.08 x10^3/uL (0-0.5); Lymphocyte (Absolute #) 0.33 x10^3/uL (1.0-4.6); Lymphocytes % 4.4 % (24.0-44.0); Mean Platelet Volume 9.7 fL (7.5-11.0); Monocyte (Absolute #) 0.54 x10^3/uL (0.0-1.3); Monocytes % 7.2 % (0.0-12.0); Neutrophil % 86.5 % (36.0-66.0); Platelet Count 351 x10^3/uL (150-450)
[2022-08-14 16:43] LABS: ALBUMIN 4.7 g/dL (3.5-5.0); ALKALINE PHOSPHATASE 77 U/L (38-126); ANION GAP 12.6 MEQ/L (5-15); BLOOD UREA NITROGEN 6 mg/dL (7-17); CHLORIDE 106 mmol/L (98-107); Calcium 10.1 mg/dL (8.4-10.2); Carbon Dioxide 21 mmol/L (22-30); Creatinine 1 0.67 mg/dL (0.52-1.04); EST GLOMERULAR FILTRATION RATE > 60.0 ML/MIN; Glucose 101 mg/dL (74-106); Potassium 4.2 mmol/L (3.5-5.1); SGOT/AST 23 U/L (14-36); SGPT/ALT 16 U/L (0-35); SODIUM 135 mmol/L (137-145); Total Protein 7.5 g/dL (6.3-8.2)
--- NOTE | 2022-08-14 16:47 | ERPHSYRPT ---
- History of Present Illness Time Seen by Provider: 08/14/22 15:30 Source: patient Exam Limitations: no limitations Patient Subjective Stated Complaint: vomiting/body aches Triage Nursing Assessment: Patient ambulated back to ED and transferred self to bed. Patient A+O x 3. Patient's skin flushed, warm and dry. Patient complains of vomiting, diarrhea and body aches that started last night. Patient complains of body aches and headaches 05/16. Physician History: 46-year-old female presents to emergency department with complaints of nausea vomiting diarrhea. patient also has body aches. Symptoms have been ongoing for 1 day. Patient has a history of COVID. Patient states her symptoms are the same. No chest pain or shortness of breath. No diaphoresis. Symptoms are constant. Symptoms are moderate in intensity. Patient voices no other complaints or concerns at this time. Timing/Duration: today Severity: moderate Modifying Factors: Improves With: nothing Associated Symptoms: nausea, vomiting, No shortness of breath Allergies/Adverse Reactions: Penicillins Allergy (Verified 08/14/22 15:19) Hives Home Medications: Losartan Potassium 50 mg PO DAILY 08/31/20 [History] Hx Tetanus, Diphtheria Vaccination/Date Given: No Hx Influenza Vaccination/Date Given: No Hx Pneumococcal Vaccination/Date Given: No Immunizations Up to Date: Yes Travel Risk - International Travel Have you traveled outside of the country in past 3 weeks: No - Coronavirus Screening Are you exhibiting any of the following symptoms?: No Close contact with a COVID-19 positive Pt in past 14-21 Days: No - Vaccine Status Have you recieved a Covid-19 vaccination: No - Review of Systems Constitutional: No Symptoms, No Fever, No Chills Eyes: No Symptoms Ears, Nose, & Throat: No Symptoms Respiratory: No Symptoms, No Cough, No Dyspnea Cardiac: No Symptoms, No Chest Pain, No Edema, No Syncope Abdominal/Gastrointestinal: No Symptoms, No Abdominal Pain, No Nausea, No Vomiting, No Diarrhea Genitourinary Symptoms: No Symptoms, No Dysuria Musculoskeletal: No Symptoms, No Back Pain, No Neck Pain Skin: No Symptoms, No Rash Neurological: No Symptoms, No Dizziness, No Focal Weakness, No Sensory Changes Psychological: No Symptoms Endocrine: No Symptoms Hematologic/Lymphatic: No Symptoms Immunological/Allergic: No Symptoms All Other Systems: Reviewed and Negative - Past Medical History Pertinent Past Medical History: Yes Neurological History: No Pertinent History ENT History: No Pertinent History Cardiac History: Hypertension, No Pertinent History Respiratory History: No Pertinent History Endocrine Medical History: No Pertinent History Musculoskeletal History: No Pertinent History, Other GI Medical History: No Pertinent History, GERD History: No Pertinent History Psycho-Social History: Depression, Anxiety Female Reproductive Disorders: No Pertinent History Other Medical History: CHRONIC BACK PAIN - Past Surgical History Past Surgical History: Yes Neuro Surgical History: No Pertinent History Cardiac: No Pertinent History Respiratory: No Pertinent History Gastrointestinal: Appendectomy, Cholecystectomy Genitourinary: No Pertinent History Musculoskeletal: Other Female Surgical History: Tubal Ligation, Section Other Surgical History: left [employer] hardware foot surgery from dog bite - Social History Smoking Status: Never smoker How long have you smoked: 10 years Exposure to second hand smoke: Yes Alcohol Use: Socially Drug Use: marijuana Patient Lives Alone: Yes Significant Family History: no pertinent family hx - Female History Hx Last Menstrual Period: two weeks ago Hx Now: No - Nursing Vital Signs Nursing Vital Signs: Initial Vital Signs Temperature 99.6 F 08/14/22 15:21 Pulse Rate 102 H 08/14/22 15:21 Respiratory Rate 18 08/14/22 15:21 Blood Pressure 150/95 08/14/22 15:21 O2 Sat by Pulse Oximetry 98 08/14/22 15:21 Pain Scale Pain Intensity 8 - Physical Exam General Appearance: no apparent distress, alert Eye Exam: PERRL/EOMI, eyes nml inspection Ears, Nose, Throat Exam: normal ENT inspection, TMs normal, pharynx normal, moist mucous membranes Neck Exam: normal inspection, non-tender, supple, full range of motion Respiratory Exam: normal breath sounds, lungs clear, airway intact, No respira tory distress Cardiovascular Exam: regular rate/rhythm, normal heart sounds, normal peripheral pulses Gastrointestinal/Abdomen Exam: soft, normal bowel sounds, No tenderness, No mass Back Exam: normal inspection, normal range of motion, No CVA tenderness, No vertebral tenderness Extremity Exam: normal inspection, normal range of motion, pelvis stable Neurologic Exam: alert, oriented x 3, cooperative, normal mood/affect, nml cerebellar function, nml station & gait, sensation nml, No motor deficits Skin Exam: normal color, warm, dry, No rash Lymphatic Exam: No adenopathy SpO2 Interpretation: normal SpO2: 97 O2 Delivery: Room Air - Course Nursing assessment & vital signs reviewed: Yes - Radiology Exams Chest X-ray Interpretation: Teleradiologist Report (Normal heart lungs and bony thorax) Ordered Tests: Active Orders 24 hr Category Date Time Status Cream Beater STAT Care 08/14/22 15:33 Active IV Insertion STAT Care 08/14/22 15:33 Active Pulse Oximetry (ED) STAT Care 08/14/22 15:33 Active CHEST 1 VIEW (PORTABLE) Stat Exams 08/14/22 15:33 Completed CBC W DIFF Stat Lab 08/14/22 16:04 Completed CMP Stat Lab 08/14/22 16:04 Completed TROPONIN Q4H Lab 08/14/22 16:04 Completed TROPONIN Q4H Lab 08/14/22 19:45 Ordered TROPONIN Q4H Lab 08/14/22 23:45 Ordered UA W/RFX CULTURE Stat Lab 08/14/22 15:36 Completed Medication Summary Discontinued Medications Generic Name Dose Route Start Last Admin Trade Name Freq PRN Reason Stop Dose Admin Acetaminophen 975 mg 08/14/22 18:19 08/14/22 18:20 Acetaminophen 325 Mg Tablet PO 08/14/22 18:20 975 mg STAT STA Administration Sodium Chloride 1,000 mls @ 999 mls/hr 08/14/22 15:33 08/14/22 17:23 Sodium Chloride 0.9% 1000 Ml IV 08/14/22 16:33 Infused .Q1H1M STA Infusion Sodium Chloride Confirm 08/14/22 16:14 Sodium Chloride 0.9% 1000 Ml Administered 08/14/22 16:15 Dose 1,000 mls @ ud .ROUTE .STK-MED ONE Ketorolac Tromethamine 30 mg 08/14/22 15:35 08/14/22 16:14 Ketorolac Tromethamine 30 Mg/Ml Inj IV 08/14/22 15:36 30 mg STAT ONE Administration Ketorolac Tromethamine Confirm 08/14/22 16:13 Ketorolac Tromethamine 30 Mg/Ml Inj Administered 08/14/22 16:14 Dose 30 mg .ROUTE .STK-MED ONE Lab/Rad Data: Laboratory Result Diagrams 08/14/22 16:04 08/14/22 16:04 Laboratory Results 08/14/22 08/14/22 08/14/22 Range/Units 17:11 16:04 16:04 WBC (4.0-10.5) x10^3/uL RBC (4.1-5.4) x10^6/uL Hgb (12.0-16.0) g/dL Hct (35-47) % MCV (78-100) fL MCH (26-32) pg MCHC (32-36) g/dL RDW (11.5-14.0) % Plt Count (150-450) x10^3/uL MPV (7.5-11.0) fL Gran % (36.0-66.0) % Immature Gran % (Auto) (0.00-0.4) % Nucleat RBC Rel Count (0.00-0.1) % Eos # (Auto) (0-0.5) x10^3/uL Immature Gran # (Auto) (0.00-0.03) x10^3u/L Absolute Lymphs (auto) (1.0-4.6) x10^3/uL Absolute Monos (auto) (0.0-1.3) x10^3/uL Absolute Nucleated RBC (0.00-0.01) x10^3u/L Lymphocytes % (24.0-44.0) % Monocytes % (0.0-12.0) % Eosinophils % (0.00-5.0) % Basophils % (0.0-0.4) % Absolute Granulocytes (1.4-6.9) x10^3/uL Basophils # (0-0.4) x10^3/uL Sodium 135 L (137-145) mmol/L Potassium 4.2 (3.5-5.1) mmol/L Chloride 106 (98-107) mmol/L Carbon Dioxide 21 L (22-30) mmol/L Anion Gap 12.6 (5-15) MEQ/L BUN 6 L (7-17) mg/dL Creatinine 0.67 (0.52-1.04) mg/dL Estimated GFR > 60.0 ML/MIN Glucose 101 (74-106) mg/dL Calcium 10.1 (8.4-10.2) mg/dL Total Bilirubin 0.30 (0.2-1.3) mg/dL AST 23 (14-36) U/L ALT 16 (0-35) U/L Alkaline Phosphatase 77 (38-126) U/L Troponin I < 0.012 (0.000-0.034) ng/mL Serum Total Protein 7.5 (6.3-8.2) g/dL Albumin 4.7 (3.5-5.0) g/dL Urinalys Dipstick Clnc Urine Color (YELLOW) Urine Appearance (CLEAR) Urine pH (5-6) Ur Specific Deaver (1.005-1.025) POC Urine Protein Conf (Negative) Urine Ketones (NEGATIVE) Urine Nitrite (NEGATIVE) Urine Bilirubin (NEGATIVE) Urine Urobilinogen (0-1) mg/dL Urine Leukocytes (NEGATIVE) Urine WBC (Auto) (0-5) /HPF Urine RBC (Auto) (0-2) /HPF U Epithel Cells (Auto) (FEW) /HPF Urine Bacteria (Auto) (NEGATIVE) /HPF Urine RBC (0-5) Sivakumar/ul Urine Mucus (Auto) (NEGATIVE) /HPF Ur Culture Indicated? Urine Glucose (NEGATIVE) mg/dL Influenza Type A Ag NEGATIVE (NEGATIVE) Influenza Type B Ag NEGATIVE (NEGATIVE) RSV (PCR) NEGATIVE (Negative) SARS-CoV-2 (PCR) POSITIVE A (NEGATIVE) 08/14/22 08/14/22 Range/Units 16:04 15:36 WBC 7.5 (4.0-10.5) x10^3/uL RBC 4.62 (4.1-5.4) x10^6/uL Hgb 11.0 L (12.0-16.0) g/dL Hct 36.0 (35-47) % MCV 77.9 L (78-100) fL MCH 23.8 L (26-32) pg MCHC 30.6 L (32-36) g/dL RDW 17.2 H (11.5-14.0) % Plt Count 351 (150-450) x10^3/uL MPV 9.7 (7.5-11.0) fL Gran % 86.5 H (36.0-66.0) % Immature Gran % (Auto) 0.4 (0.00-0.4) % Nucleat RBC Rel Count 0.0 (0.00-0.1) % Eos # (Auto) 0.08 (0-0.5) x10^3/uL Immature Gran # (Auto) 0.03 (0.00-0.03) x10^3u/L Absolute Lymphs (auto) 0.33 L (1.0-4.6) x10^3/uL Absolute Monos (auto) 0.54 (0.0-1.3) x10^3/uL Absolute Nucleated RBC 0.00 (0.00-0.01) x10^3u/L Lymphocytes % 4.4 L (24.0-44.0) % Monocytes % 7.2 (0.0-12.0) % Eosinophils % 1.1 (0.00-5.0) % Basophils % 0.4 (0.0-0.4) % Absolute Granulocytes 6.51 (1.4-6.9) x10^3/uL Basophils # 0.03 (0-0.4) x10^3/uL Sodium (137-145) mmol/L Potassium (3.5-5.1) mmol/L Chloride (98-107) mmol/L Carbon Dioxide (22-30) mmol/L Anion Gap (5-15) MEQ/L BUN (7-17) mg/dL Creatinine (0.52-1.04) mg/dL Estimated GFR ML/MIN Glucose (74-106) mg/dL Calcium (8.4-10.2) mg/dL Total Bilirubin (0.2-1.3) mg/dL AST (14-36) U/L ALT (0-35) U/L Alkaline Phosphatase (38-126) U/L Troponin I (0.000-0.034) ng/mL Serum Total Protein (6.3-8.2) g/dL Albumin (3.5-5.0) g/dL Urinalys Dipstick Clnc MAIN LAB Urine Color YELLOW (YELLOW) Urine Appearance CLEAR (CLEAR) Urine pH 7.5 (5-6) Ur Specific Deaver 1.020 (1.005-1.025) POC Urine Protein Conf NEGATIVE (Negative) Urine Ketones NEGATIVE (NEGATIVE) Urine Nitrite NEGATIVE (NEGATIVE) Urine Bilirubin NEGATIVE (NEGATIVE) Urine Urobilinogen 0.2 (0-1) mg/dL Urine Leukocytes NEGATIVE (NEGATIVE) Urine WBC (Auto) NONE (0-5) /HPF Urine RBC (Auto) NONE (0-2) /HPF U Epithel Cells (Auto) RARE (FEW) /HPF Urine Bacteria (Auto) NONE (NEGATIVE) /HPF Urine RBC NEGATIVE (0-5) Sivakumar/ul Urine Mucus (Auto) SLIGHT A (NEGATIVE) /HPF Ur Culture Indicated? NO Urine Glucose NEGATIVE (NEGATIVE) mg/dL Influenza Type A Ag (NEGATIVE) Influenza Type B Ag (NEGATIVE) RSV (PCR) (Negative) SARS-CoV-2 (PCR) (NEGATIVE) - Progress Progress: improved Progress Note: Patient reassessed. Symptoms significantly improved. Patient has mild microcytic anemia. COVID-positive. IV fluids infused. Patient feels better. Patient is ready for discharge. Will discharge home. Patient agrees to follow- up with her primary care doctor within 48 hours for evaluation. Portions of this note were created with voice recognition technology. There may be grammatical, spelling, punctuation or sound alike errors 08/14/22 18:23 Counseled pt/family regarding: lab results, diagnosis, need for follow-up, rad results - Departure Departure Disposition: Home Clinical Impression: Microcytic anemia, Viral syndrome, Hyponatremia, COVID-19 Condition: Stable Critical Care Time: No Referrals: JASON FUENTES NP [Primary Care Provider] - Follow up/PCP as directed Additional Instructions: Discharge/Care Plan REMA AGUIAR SOREN was seen on 08/14/22 in the Emergency Room. The patient was counseled regarding Diagnosis,Lab results, Imaging studies, need for follow up and when to return to the Emergency Room. Prescriptions given: Discharge Note I have spoken with the patient and/or caregivers. I have explained the patient's condition, diagnosis and treatment plan based on the information available to me at this time. I have answered the patient's and/or caregiver's questions and addressed any concerns. The patient and/or caregivers have as good understanding of the patient's diagnosis, condition and treatment plan as can be expected at this point. The vital signs have been stable. The patient's condition is stable and appropriate for discharge from the emergency department. The patient will pursue further outpatient evaluation with the primary care physician or other designated or consulting physician as outlined in the discharge instructions. The patient and/or caregivers are agreeable to this plan of care and follow-up instructions have been explained in detail. The patient and/or caregivers have received these instruction. The patient/and or caregivers are aware that any significant change in condition or worsening of symptoms should prompt an immediate return to this or the closest emergency department or call 911.
[2022-08-14 17:29] VITALS: BP 136/90
[2022-08-14 17:48] LABS: INFLUENZA A NEGATIVE (NEGATIVE); INFLUENZA B NEGATIVE (NEGATIVE); RESPIRATORY SYNCTIAL VIRUS NEGATIVE (Negative)
[2022-08-14 18:07] LABS: SARS-CoV-2 Xpert Express POSITIVE (NEGATIVE)
[2022-08-14 18:14] VITALS: PULSE 102
[2022-08-14] MEDS ORDERED: TYLENOL 325 MG ONE (18:20)
[2022-08-14] MEDS: TYLENOL 325 MG PO STA (18:20)
[2022-08-14 18:24] VITALS: O2SAT 97
[2022-08-14 23:51] LABS: Slide Review 1 YES
== END 2022-08-14 18:29 | disposition home or self-care (01) ==
LOC: ED 15:12
DX: U07.1 COVID-19 (principal); D50.9 Iron deficiency anemia, unspecified; E87.1 Hypo-osmolality and hyponatremia; R11.2 Nausea with vomiting, unspecified; R19.7 Diarrhea, unspecified; M79.10 Myalgia, unspecified site; I10 Essential (primary) hypertension; Z79.899 Other long term (current) drug therapy; Z28.310 Unvaccinated for COVID-19; Z86.16 Personal history of COVID-19
CPT/HCPCS: 0241U; 36000; 36415; 71045; 80053; 81015; 84484; 85025; 93041; 94760; 96360; 96374; 99284; J1885; A9270-GY

== ENCOUNTER 2023-04-25 21:57 | Emergency (ER) | payer OTHER ==
[2023-04-25] MEDS ORDERED: Adacel Vial IM ONE (23:06)
[2023-04-25] MEDS ORDERED: Sodium Chloride 0.9% 1000 ML 1,000 ML IV STA (23:06)
[2023-04-25 23:20] VITALS: TEMP 95.3
[2023-04-25] MEDS ORDERED: Sodium Chloride 0.9% 1000 ML 1,000 ML ONE (23:30)
[2023-04-25 23:55] LABS: Absolute Neutrophil Ct (ANC) 5.62 x10^3/uL (1.4-6.9); BASOPHIL % 0.4 % (0.0-0.4); Basophil (Absolute #) 0.03 x10^3/uL (0-0.4); Eosinophil % 0.9 % (0.00-5.0); Eosinophil (Absolute #) 0.07 x10^3/uL (0-0.5); Hematocrit 34.6 % (35-47); Hemoglobin 10.7 g/dL (12.0-16.0); IMMATURE GRAN # 0.02 x10^3u/L (0.00-0.03); IMMATURE GRAN % 0.3 % (0.00-0.4); Lymphocyte (Absolute #) 1.37 x10^3/uL (1.0-4.6); Lymphocytes % 17.7 % (24.0-44.0); Mean Cell Volume 82.2 fL (78-100); Mean Corpuscular Hemoglobin 25.4 pg (26-32); Mean Corpuscular Hgb Concent. 30.9 g/dL (32-36); Mean Platelet Volume 9.7 fL (7.5-11.0); Monocyte (Absolute #) 0.62 x10^3/uL (0.0-1.3); Neutrophil % 72.7 % (36.0-66.0); Platelet Count 296 x10^3/uL (150-450); Red Blood Count 4.21 x10^6/uL (4.1-5.4); Red Cell Distribution Width 22.8 % (11.5-14.0); White Blood Count 7.7 x10^3/uL (4.0-10.5)
[2023-04-26 00:06] LABS: ALBUMIN 3.9 g/dL (3.5-5.0); ALKALINE PHOSPHATASE 48 U/L (38-126); ANION GAP 9.6 MEQ/L (5-15); BLOOD UREA NITROGEN 11 mg/dL (7-17); CHLORIDE 105 mmol/L (98-107); Calcium 9.9 mg/dL (8.4-10.2); Carbon Dioxide 24 mmol/L (22-30); Creatinine 1 0.93 mg/dL (0.52-1.04); EST GLOMERULAR FILTRATION RATE > 60.0 ML/MIN; Glucose 108 mg/dL (74-106); MAGNESIUM 2.1 mg/dL (1.6-2.3); Potassium 3.6 mmol/L (3.5-5.1); SGOT/AST 34 U/L (14-36); SGPT/ALT 20 U/L (0-35); SODIUM 135 mmol/L (137-145); Total Protein 6.7 g/dL (6.3-8.2)
[2023-04-26 00:25] VITALS: O2SAT 98
[2023-04-26 00:36] LABS: HCG SERUM TEST NEGATIVE (NEGATIVE)
--- NOTE | 2023-04-26 00:40 | ERPHSYRPT ---
- History of Present Illness Time Seen by Provider: 04/25/23 22:03 Source: patient Exam Limitations: no limitations Patient Subjective Stated Complaint: pt states she was asleep at home and was woken up when her daughter called her. she then proceeded to take her dog outsi de. she reports that while she was walking her dog she started feeling lightheaded, had midsternal chest pain, and increased weakness. she states that she hurried and tried to get back in the house but then woke up in the gravel. she reports that she has been seeing an MD for a few months due to bilat lower ext weakness that has been progressively getting worse. Triage Nursing Assessment: pt brought into room via wheelchair then was able to stand and pivot to get into ED cart. pt is alert and oriented times three, able to speak in complete sentences (with a quiet voice), able to move all extremities (slight weakness to bilat lower ext which pt reports she has been se eing an MD for), resp even and unlabored. bilat pedal pulses and bilat radial pulses are palpable, normal, and equal. no swelling noted. pt denies numbness but reports slight tingling to her lower lip where her laceration is. breath sounds are clear and equal bilat, pupils are 5mm, equal, round, and reactive to light. no facial droop noted. pt reports that she is no longer having chest pain but still feels very weak. she states she is nauseated but hasn't vomited, she reports that she still feels dizzy and lightheaded and has a headache that is generalized all over but worse in bilat front. rates ARREDONDO pain 10/10 and is unable to describe it other that it "hurts real bad". complaint of right shoulder pain with limited range of motion and thinks she fell on that shoulder (no abrasions or wounds noted). orthostatic BP/HR were obtained and negative for postural hypotension. pt denied any increase to lightheadedness or dizziness while obtaining orthostatics and she was able to change positions and stand independently. also complain of lower inside lip pain due to laceration inside bottom lip, laceration noted under chin, a couple of small abrasions are noted to left knee and left pinky finger. Physician History: 47 years old female with history of hypertension, anxiety/depression presented in the ER with chief complaint of syncopal episode/fall. Patient reports she was asleep when her daughter called and she was walking out of the house with her dog and felt dizzy lightheaded with some palpitations and chest discomfort. She felt as if she was going to pass out and try to rushed into the house but she collapsed on the gravel and woke up later. She has a laceration underneath the chin, abrasion the left lateral orbit, abrasion left knee and some dis comfort in the right shoulder. She denies any numbness tingling or focal weakness. Denies any confusion. No difficulty speech or visual disturbance reported. Patient reports pain with movements of right shoulder and no pain with movements of the left knee. Denies any palpitations or shortness of breath at present but does have some discomfort. She denies any history of syncopal episodes in the past. She does have frontal headache mild to moderate but no other neuro symptoms. Timing/Duration: today Severity: moderate Deficits: no difficulties Baseline/Normal Cognition: alert oriented x 3 Current Cognition: alert oriented x 3 Baseline Gait: walks w/o assistance Associated Symptoms: fatigue, loss of consciousness, headache Allergies/Adverse Reactions: Penicillins Allergy (Verified 04/25/23 22:36) Hives Home Medications: Losartan Potassium 50 mg PO DAILY 08/31/20 [History] Quetiapine Fumarate 100 mg [Seroquel 100 MG] 100 mg PO HS 04/25/23 [Hist ory] Hx Tetanus, Diphtheria Vaccination/Date Given: Yes Hx Influenza Vaccination/Date Given: Yes Hx Pneumococcal Vaccination/Date Given: No Immunizations Up to Date: Yes Travel Risk - International Travel Have you traveled outside of the country in past 3 weeks: No - Coronavirus Screening Are you exhibiting any of the following symptoms?: No Close contact with a COVID-19 positive Pt in past 14-21 Days: No - Vaccine Status Have you recieved a Covid-19 vaccination: No - Review of Systems Constitutional: No Symptoms Eyes: Other (Abrasion left lateral orbit) Ears, Nose, & Throat: Mouth Pain (Lower lips swelling inside) Respiratory: No Symptoms Cardiac: Chest Pain Abdominal/Gastrointestinal: No Symptoms Genitourinary Symptoms: No Symptoms Musculoskeletal: Fall, Injury, Joint Pain Skin: Skin Lesions Neurological: Dizziness Psychological: Anxiety Endocrine: No Symptoms Hematologic/Lymphatic: No Symptoms Immunological/Allergic: No Symptoms - Past Medical History Pertinent Past Medical History: Yes Neurological History: No Pertinent History ENT History: No Pertinent History Cardiac History: High Cholesterol, Hypertension Respiratory History: Other Endocrine Medical History: Hypothyroidism Musculoskeletal History: No Pertinent History, Other GI Medical History: No Pertinent History, GERD History: No Pertinent History Psycho-Social History: Anxiety, Depression, Other Female Reproductive Disorders: No Pertinent History Other Medical History: Smoker, COVID-19 x2, L Index finger Fracture, RUE fracture at elbow (childhood), dog bite to L foot (12/2021) s/p gangrene and surgical repair ptsd - Past Surgical History Past Surgical History: Yes Neuro Surgical History: No Pertinent History Cardiac: No Pertinent History Respiratory: No Pertinent History Gastrointestinal: Appendectomy, Cholecystectomy Genitourinary: No Pertinent History Musculoskeletal: Other Female Surgical History: Tubal Ligation, Section Other Surgical History: left amr hardware foot surgery from dog bite - Social History Smoking Status: Current every day smoker How long have you smoked: 10 years Exposure to second hand smoke: Yes Alcohol Use: Socially Drug Use: marijuana Patient Lives Alone: Yes Significant Family History: no pertinent family hx - Female History Hx Last Menstrual Period: 04/20/2023 Hx Now: No (UNKN) - Nursing Vital Signs Nursing Vital Signs: Initial Vital Signs Temperature 95.3 F 04/25/23 22:40 Pulse Rate 77 04/25/23 22:40 Respiratory Rate 22 04/25/23 22:40 Blood Pressure 106/68 04/25/23 22:40 O2 Sat by Pulse Oximetry 98 04/25/23 22:40 Pain Scale Pain Intensity 10 - Yuval Coma Scale Best Eye Response (Yuval): (4) open spontaneously Best Verbal Response (Almont): (5) oriented Best Motor Response (Yuval): (6) obeys commands [place] Total: 15 - Physical Exam General Appearance: no apparent distress, alert Eye Exam: left eye: other (Left lateral orbital wall 1 cm superficial laceration with no step in deformity.), bilateral eye: normal inspection, PERRL, EOMI Ears, Nose, Throat Exam: TMs normal, pharynx normal, other (Superficial cut lower inner lip. No active bleeding. 4 cm laceration horizontal underneath chin. Minimal oozing. No active spurting. 1 cm laceration in the middle of chin anteriorly. No active bleeding.) Neck Exam: normal inspection, non-tender, supple, full range of motion, No meningismus, No mass Respiratory: normal breath sounds, lungs clear, No chest tenderness Cardiovascular: regular rate/rhythm, normal heart sounds Gastrointestinal: soft, normal bowel sounds, No tenderness Back Exam: normal inspection, normal range of motion, No CVA tenderness, No vertebral tenderness Extremity Exam: normal range of motion, pelvis stable, contusions (Left knee with abrasion), tenderness, other (Painful movements right shoulder but intact range) Mental Status: alert, oriented x 3, cooperative, No agitated wild life manager Exam: normal hearing, normal speech, PERRL, No abnormal eye position, No facial asymmetry, No facial droop Coordination/Gait: normal finger to nose, normal cerebellar function Motor/Sensory: no motor deficit, no sensory deficit, no pronator drift, negative Babinski's sign DTR: bicep (R): 2+, bicep (L): 2+, knee (R): 2+, knee (L): 2+ Skin Exam: normal color SpO2 Interpretation: normal SpO2: 98 O2 Delivery: Room Air Procedures - Laceration/Wound Repair Face Time of Procedure: 02:02 Wound Location: face (Underneath chin) Wound Length (cm): 4 Wound's Depth, Shape: into muscle, linear Wound Explored: contaminated Irrigated: Yes Hibiclens Prep: Yes Anesthesia: 1% Lidocaine Volume Anesthetic (ccs): 3 Wound Repaired With: sutures Suture Size/Type: 5-0, ethilon Number of Sutures: 10 Layer Closure?: No Sterile Dressing Applied?: Yes Splint Applied?: No Progress: 04/26/23 02:02 Second laceration anterior chain. 1 cm. Superficial, irregular edges, Dermabond and Steri-Strips applied. Third laceration left lateral orbital wall. 1 cm's. Superficial, oblique, Dermabond and Steri-Strips applied Patient tolerated all 3 laceration repair very well. - Course EKG Interpreted by Me: RATE, Sinus Rhythm, NORMAL AXIS, NORMAL INTERVALS, NORMAL QRS Ordered Tests: Active Orders 24 hr Category Date Time Status Hardware Technician STAT Care 04/25/23 23:06 Active EKG-ER Only STAT Care 04/25/23 23:06 Active IV Insertion STAT Care 04/25/23 23:06 Active Orthostatic Vital Signs STAT Care 07/20/23 23:07 Active Pulse Oximetry (ED) STAT Care 04/25/23 23:06 Active CHEST 1 VIEW (PORTABLE) Routine Exams 04/26/23 00:48 Taken SHOULDER Routine Exams 04/26/23 00:48 Taken CBC W DIFF Stat Lab 04/25/23 23:52 Completed CMP Stat Lab 04/25/23 23:52 Completed HCG QUALITATIVE, SERUM Stat Lab 04/25/23 23:52 Completed MAGNESIUM Stat Lab 04/25/23 23:52 Completed NT PRO BNPII Stat Lab 04/25/23 23:52 Completed TROPONIN Q4H Lab 04/25/23 23:52 Completed TROPONIN Q4H Lab 04/26/23 03:15 Ordered TROPONIN Q4H Lab 04/26/23 07:15 Ordered UA W/RFX UR CULTURE Stat Lab 04/26/23 00:47 Completed Urine Triage Profile Stat Lab 04/26/23 00:47 Completed Medication Summary Discontinued Medications Generic Name Dose Route Start Last Admin Trade Name Freq PRN Reason Stop Dose Admin Diphtheria/Tetanus/Acell Pertussis 0.5 ml 04/25/23 23:06 04/25/23 23:29 Tdap --Diph,Pertuss(Acell),Tet Vac/Pf 0.5 Ml Vial IM 04/25/23 23:07 Not Given .ONCE ONE Sodium Chloride 1,000 mls @ 999 mls/hr 04/25/23 23:06 04/25/23 23:31 Sodium Chloride 0.9% 1000 Ml IV 04/26/23 00:06 999 mls/hr .Q1H1M STA Administration Sodium Chloride Confirm 04/25/23 23:30 Sodium Chloride 0.9% 1000 Ml Administered 04/25/23 23:31 Dose 1,000 mls @ ud .ROUTE .STK-MED ONE Lab/Rad Data: Laboratory Result Diagrams 04/25/23 23:52 04/25/23 23:52 Laboratory Results 04/26/23 04/26/23 04/25/23 Range/Units 00:47 00:47 23:52 WBC (4.0-10.5) x10^3/uL RBC (4.1-5.4) x10^6/uL Hgb (12.0-16.0) g/dL Hct (35-47) % MCV (78-100) fL MCH (26-32) pg MCHC (32-36) g/dL RDW (11.5-14.0) % Plt Count (150-450) x10^3/uL MPV (7.5-11.0) fL Gran % (36.0-66.0) % Immature Gran % (Auto) (0.00-0.4) % Nucleat RBC Rel Count (0.00-0.1) % Eos # (Auto) (0-0.5) x10^3/uL Immature Gran # (Auto) (0.00-0.03) x10^3u/L Absolute Lymphs (auto) (1.0-4.6) x10^3/uL Absolute Monos (auto) (0.0-1.3) x10^3/uL Absolute Nucleated RBC (0.00-0.01) x10^3u/L Lymphocytes % (24.0-44.0) % Monocytes % (0.0-12.0) % Eosinophils % (0.00-5.0) % Basophils % (0.0-0.4) % Absolute Granulocytes (1.4-6.9) x10^3/uL Basophils # (0-0.4) x10^3/uL Sodium (137-145) mmol/L Potassium (3.5-5.1) mmol/L Chloride (98-107) mmol/L Carbon Dioxide (22-30) mmol/L Anion Gap (5-15) MEQ/L BUN (7-17) mg/dL Creatinine (0.52-1.04) mg/dL Estimated GFR ML/MIN Glucose (74-106) mg/dL Calcium (8.4-10.2) mg/dL Magnesium (1.6-2.3) mg/dL Total Bilirubin (0.2-1.3) mg/dL AST (14-36) U/L ALT (0-35) U/L Alkaline Phosphatase (38-126) U/L Troponin I (0.000-0.034) ng/mL NT-Pro-B Natriuret Pep (<300) pg/mL Serum Total Protein (6.3-8.2) g/dL Albumin (3.5-5.0) g/dL Serum HCG, Qual NEGATIVE (NEGATIVE) Urine Color Yellow (Yellow) Urine Appearance Cloudy A (Clear) Urine pH 7.0 (4.6-8.0) Ur Specific [place] <=1.005 (1.005-1.030) Urine Protein Negative (Negative) Urine Glucose (UA) Negative (Negative) mg/dL Urine Ketones Negative (Negative) Urine Blood Negative (Negative) Urine Nitrite Negative (Negative) Urine Bilirubin Negative (Negative) Urine Urobilinogen 0.2 (0.2) mg/dL Ur Leukocyte Esterase Trace A (Negative) U Hyaline Cast (Auto) 3-5 A (0-2) /LPF Urine Microscopic RBC 0-2 (0-5) /HPF Urine Microscopic WBC 6-10 A (0-5) /HPF Ur Epithelial Cells Moderate A (None Seen) /HPF Urine Bacteria Few A (None Seen) /HPF Urine Culture Reflexed NO (NO) Urine Opiates Level NEGATIVE (NEGATIVE) Ur Methadone NEGATIVE (NEGATIVE) Urine Barbiturates NEGATIVE (NEGATIVE) Ur Phencyclidine (PCP) NEGATIVE (NEGATIVE) Urine Amphetamine NEGATIVE (NEGATIVE) U Benzodiazepine Level NEGATIVE (NEGATIVE) Urine Cocaine NEGATIVE (NEGATIVE) Urine Marijuana (THC) POSITIVE (NEGATIVE) Slides for Path Review 04/25/23 04/25/23 04/25/23 Range/Units 23:52 23:52 23:52 WBC (4.0-10.5) x10^3/uL RBC (4.1-5.4) x10^6/uL Hgb (12.0-16.0) g/dL Hct (35-47) % MCV (78-100) fL MCH (26-32) pg MCHC (32-36) g/dL RDW (11.5-14.0) % Plt Count (150-450) x10^3/uL MPV (7.5-11.0) fL Gran % (36.0-66.0) % Immature Gran % (Auto) (0.00-0.4) % Nucleat RBC Rel Count (0.00-0.1) % Eos # (Auto) (0-0.5) x10^3/uL Immature Gran # (Auto) (0.00-0.03) x10^3u/L Absolute Lymphs (auto) (1.0-4.6) x10^3/uL Absolute Monos (auto) (0.0-1.3) x10^3/uL Absolute Nucleated RBC (0.00-0.01) x10^3u/L Lymphocytes % (24.0-44.0) % Monocytes % (0.0-12.0) % Eosinophils % (0.00-5.0) % Basophils % (0.0-0.4) % Absolute Granulocytes (1.4-6.9) x10^3/uL Basophils # (0-0.4) x10^3/uL Sodium 135 L (137-145) mmol/L Potassium 3.6 (3.5-5.1) mmol/L Chloride 105 (98-107) mmol/L Carbon Dioxide 24 (22-30) mmol/L Anion Gap 9.6 (5-15) MEQ/L BUN 11 (7-17) mg/dL Creatinine 0.93 (0.52-1.04) mg/dL Estimated GFR > 60.0 ML/MIN Glucose 108 H (74-106) mg/dL Calcium 9.9 (8.4-10.2) mg/dL Magnesium 2.1 (1.6-2.3) mg/dL Total Bilirubin 0.30 (0.2-1.3) mg/dL AST 34 (14-36) U/L ALT 20 (0-35) U/L Alkaline Phosphatase 48 (38-126) U/L Troponin I < 0.012 (0.000-0.034) ng/mL NT-Pro-B Natriuret Pep 56.8 (<300) pg/mL Serum Total Protein 6.7 (6.3-8.2) g/dL Albumin 3.9 (3.5-5.0) g/dL Serum HCG, Qual (NEGATIVE) Urine Color (Yellow) Urine Appearance (Clear) Urine pH (4.6-8.0) Ur Specific [place] (1.005-1.030) Urine Protein (Negative) Urine Glucose (UA) (Negative) mg/dL Urine Ketones (Negative) Urine Blood (Negative) Urine Nitrite (Negative) Urine Bilirubin (Negative) Urine Urobilinogen (0.2) mg/dL Ur Leukocyte Esterase (Negative) U Hyaline Cast (Auto) (0-2) /LPF Urine Microscopic RBC (0-5) /HPF Urine Microscopic WBC (0-5) /HPF Ur Epithelial Cells (None Seen) /HPF Urine Bacteria (None Seen) /HPF Urine Culture Reflexed (NO) Urine Opiates Level (NEGATIVE) Ur Methadone (NEGATIVE) Urine Barbiturates (NEGATIVE) Ur Phencyclidine (PCP) (NEGATIVE) Urine Amphetamine (NEGATIVE) U Benzodiazepine Level (NEGATIVE) Urine Cocaine (NEGATIVE) Urine Marijuana (THC) (NEGATIVE) Slides for Path Review 04/25/23 Range/Units 23:52 WBC 7.7 (4.0-10.5) x10^3/uL RBC 4.21 (4.1-5.4) x10^6/uL Hgb 10.7 L (12.0-16.0) g/dL Hct 34.6 L (35-47) % MCV 82.2 (78-100) fL MCH 25.4 L (26-32) pg MCHC 30.9 L (32-36) g/dL RDW 22.8 H (11.5-14.0) % Plt Count 296 (150-450) x10^3/uL MPV 9.7 (7.5-11.0) fL Gran % 72.7 H (36.0-66.0) % Immature Gran % (Auto) 0.3 (0.00-0.4) % Nucleat RBC Rel Count 0.0 (0.00-0.1) % Eos # (Auto) 0.07 (0-0.5) x10^3/uL Immature Gran # (Auto) 0.02 (0.00-0.03) x10^3u/L Absolute Lymphs (auto) 1.37 (1.0-4.6) x10^3/uL Absolute Monos (auto) 0.62 (0.0-1.3) x10^3/uL Absolute Nucleated RBC 0.00 (0.00-0.01) x10^3u/L Lymphocytes % 17.7 L (24.0-44.0) % Monocytes % 8.0 (0.0-12.0) % Eosinophils % 0.9 (0.00-5.0) % Basophils % 0.4 (0.0-0.4) % Absolute Granulocytes 5.62 (1.4-6.9) x10^3/uL Basophils # 0.03 (0-0.4) x10^3/uL Sodium (137-145) mmol/L Potassium (3.5-5.1) mmol/L Chloride (98-107) mmol/L Carbon Dioxide (22-30) mmol/L Anion Gap (5-15) MEQ/L BUN (7-17) mg/dL Creatinine (0.52-1.04) mg/dL Estimated GFR ML/MIN Glucose (74-106) mg/dL Calcium (8.4-10.2) mg/dL Magnesium (1.6-2.3) mg/dL Total Bilirubin (0.2-1.3) mg/dL AST (14-36) U/L ALT (0-35) U/L Alkaline Phosphatase (38-126) U/L Troponin I (0.000-0.034) ng/mL NT-Pro-B Natriuret Pep (<300) pg/mL Serum Total Protein (6.3-8.2) g/dL Albumin (3.5-5.0) g/dL Serum HCG, Qual (NEGATIVE) Urine Color (Yellow) Urine Appearance (Clear) Urine pH (4.6-8.0) Ur Specific [place] (1.005-1.030) Urine Protein (Negative) Urine Glucose (UA) (Negative) mg/dL Urine Ketones (Negative) Urine Blood (Negative) Urine Nitrite (Negative) Urine Bilirubin (Negative) Urine Urobilinogen (0.2) mg/dL Ur Leukocyte Esterase (Negative) U Hyaline Cast (Auto) (0-2) /LPF Urine Microscopic RBC (0-5) /HPF Urine Microscopic WBC (0-5) /HPF Ur Epithelial Cells (None Seen) /HPF Urine Bacteria (None Seen) /HPF Urine Culture Reflexed (NO) Urine Opiates Level (NEGATIVE) Ur Methadone (NEGATIVE) Urine Barbiturates (NEGATIVE) Ur Phencyclidine (PCP) (NEGATIVE) Urine Amphetamine (NEGATIVE) U Benzodiazepine Level (NEGATIVE) Urine Cocaine (NEGATIVE) Urine Marijuana (THC) (NEGATIVE) Slides for Path Review YES - Progress Progress: improved, re-examined Progress Note: 04/26/23 00:43 47 years old female with history of hypertension, anxiety/depression presented in the ER with chief complaint of syncopal episode/fall. Patient reports she was asleep when her daughter called and she was walking out of the house with her dog and felt dizzy lightheaded with some palpitations and chest discomfort. She felt as if she was going to pass out and try to rushed into the house but she collapsed on the gravel and woke up later. She has a laceration underneath the chin, abrasion the left lateral orbit, abrasion left knee and some discomfort in the right shoulder. She denies any numbness tingling or focal weakness. Denies any confusion. No difficulty speech or visual disturbance reported. Patient reports pain with movements of right shoulder and no pain with movements of the left knee. Denies any palpitations or shortness of breath at present but does have some discomfort. She denies any history of syncopal episodes in the past. She does have frontal headache mild to moderate but no other neuro symptoms. Patient has nonfocal neuro exam. No obvious deformity. Has a laceration underneath chin, in front of the chin and lateral to left eye. Intact range of motion of eyeball. EKG is normal sinus rhythm. Chest x-ray reviewed by me negative for any acute cardiopulmonary findings. X-ray right shoulder negative for acute trauma related findings reviewed by me, official report for chest x- ray and x-ray shoulder pending. Given fluid bolus. She has negative orthostatics. Baseline work-up showed normal white count, fairly unremarkable chemistries. Negative troponins. 04/26/23 02:03 CT head is negative for calvarial fracture, intracranial bleed, midline shift or mass effect. CT cervical spine negative for any acute fracture or subluxation. CT facial bone showed nondisplaced nasal bone fracture and no other acute findings. Lacerations are repaired. Do not know the exact cause of her syncope. Neuro exam remained nonfocal. Patient is back to her baseline. This could be secondary to her medication Seroquel which she took before she went to bed, cardiac, neurogenic but no obvious cause so far. Patient I believe needs further evaluation inpatient with syncope work-up. I have discussed the results of work-up and plan of admission with patient and family in detail and tried to admit her to the hospitalist service but patient does not want to stay in the hospital at all. Patient's states "I am back to normal and I have appointment in the morning and I have dogs to take care of, do not think I need to be admitted and I believe I will do better at home". Patient is not confused or altered at all. I have discussed with patient for about 15 minutes and try to convince her but she is wants to go home. She is given Keflex for nasal fracture and lacerations as it was not a clean 1. Recommended outpatient follow-up with primary care and ENT for further evaluation. Discussed signs symptoms of worsening needing return to ER which she seems understanding. Counseled pt/family regarding: lab results, diagnosis, need for follow-up, rad results, smoking cessation Medical Desision Making - Independent Historian Additional History obtained from: Mother - Risk of complications The pt has a mod risk of morbidity or mortality based on: Need for prescription drug management The pt has a high risk of morbidity or mortality based on: Decision regarding hospitilization or escalation of hosp level of care - Departure Departure Disposition: AMA Clinical Impression: Syncope and collapse, Nasal bone fracture, Laceration of chin Condition: Stable Critical Care Time: No Referrals: [facility] [Primary Care Provider] - Follow up/PCP as directed (1-2 days for reevaluation and need referral for ENT for further evaluation of nasal fracture.) Instructions: Syncope (Fainting) (DC), Nose Fracture (DC), Laceration Repair With Stitches ED Additional Instructions: Take Tylenol as needed for pain. Intermittent ice application. Follow-up with primary care for reevaluation in 1 to 2 days. Needs referral for ENT for further evaluation of nasal fracture. Return to ER for increasing pain swelling discharge from the wounds or if having fever or chills. Also return to ER for intractable headache, chest pain palpitations shortness of breath or if having syncope dizziness again. Prescriptions: Cephalexin Mh 500 mg [Keflex 500 mg] 500 mg PO TID #21 cap
--- NOTE | 2023-04-26 00:58 | XRAY ---
CLINICAL HISTORY:FALL COMPARISON:None TECHNIQUE:Axial non-contrast CT scan of the cervical spine was done with sagittal and coronal reformats. FINDINGS: The cervical lordotic curvature is maintained. Tiny marginal osteophytes at multiple levels. Disc osteophyte complex seen at C4-C5 level, encroaching spinal canal and causing narrowing of the right neural foramen. The vertebral bodies are normal in height. No lytic or sclerotic bone lesion. The craniovertebral measures are unremarkable. Intervertebral disc spaces are well maintained. No fracture or dislocation is seen. No evidence of facet joint hypertrophy or neural foraminal stenosis. Pre-vertebral soft tissues are within normal limits. IMPRESSION: 1. Early cervical spondylosis 2. Disc osteophyte complex at C4-C5 level, encroaching spinal canal and causing narrowing of the right neural foramen. 3. No evidence of acute fracture or dislocation. Electronically Signed by: Jennie Felton MD. (04/25/2023 23:56:53 HYDROELECTRIC STATION CHIEF)
--- NOTE | 2023-04-26 01:00 | XRAY ---
CLINICAL HISTORY:FALL COMPARISON:None. TECHNIQUE:Axial non-contrast CT scan of the brain was performed from the skull base to the high parietal region. DLP: 1813.89 FINDINGS: The visualized brain parenchyma shows normal appearance. Hurtado-white matter differentiation is maintained. No midline shifts or deformity. No intracerebral or extra axial hematoma. Normal size and configuration of the cerebral ventricles. Normal CT appearance of the posterior fossa structures namely the cerebellar hemispheres, brainstem and cerebellar peduncles. The IACs are unremarkable. The cerebello-pontine angles are clear. The pituitary gland, the pineal gland, the optic chiasm is unremarkable. The osseous structures in the skull base are unremarkable. No definite calvarium fractures. The scanned paranasal sinuses are clear. IMPRESSION: No acute intracranial event is seen. No calvarial fracture or hematoma seen. Electronically Signed by: Jennie Felton MD. (04/25/2023 23:59:53 LUBRICATING SPECIALIST)
[2023-04-26 01:02] LABS: Appearance Cloudy (Clear); Bacteria Few /HPF (None Seen); Bilirubin Negative (Negative); Blood Negative (Negative); Epithelial Cells Moderate /HPF (None Seen); Glucose, Urine Negative (Negative); Ketones Negative (Negative); Leukocyte Esterase Trace (Negative); Nitrite Negative (Negative); Protein,Urine Dip Negative (Negative); RBC 0-2 /HPF (0-5); Specific Gravity <=1.005 (1.005-1.030); Urobilinogen 0.2 mg/dL (0.2)
--- NOTE | 2023-04-26 01:08 | XRAY ---
CLINICAL HISTORY:FALL COMPARISON:None TECHNIQUE:Non-Contrast CT scan of the paranasal sinuses was performed, with sagittal and coronal multiplanar reconstruction. FINDINGS: Nasal bone: There is a linear fissure line without displacement in the nasal bone. Nasal Septum: Midline Turbinates: No evidence of selam bullosa or paradoxical curvature Uncinate Processes: No deviation or bulla formation O-M UNIT: Infundibula and hiatus semilunaris are widely patent. SINUSES: The frontal, sphenoid, maxillary sinuses and ethmoid air cells are well pneumatized. Fovea Ethmoidalis: Normal position. Fovea ethmoidalis and cribriform plate are not low lying Nasopharynx: Unremarkable. Facial Bones: Unremarkable. IMPRESSION: Non-displaced fracture of the nasal bone. Electronically Signed by: Jennie Felton MD. (04/26/2023 00:06:44 [employer])
[2023-04-26 01:12] LABS: Amphetamine,Urine NEGATIVE (NEGATIVE); Barbiturate,Urine NEGATIVE (NEGATIVE); Benzodiazepine,Urine NEGATIVE (NEGATIVE); Cocaine,Urine NEGATIVE (NEGATIVE); Methadone,Urine NEGATIVE (NEGATIVE); Opiate,Urine NEGATIVE (NEGATIVE); PCP,Urine NEGATIVE (NEGATIVE); THC,Urine POSITIVE (NEGATIVE)
[2023-04-26 01:13] LABS: ADD URINE CULTURE? NO (NO)
[2023-04-26 01:31] LABS: Slide Review 1 YES
[2023-04-26] MEDS ORDERED: KEFLEX 500 MG PO ONE (02:07)
[2023-04-26] MEDS ORDERED: KEFLEX 500 MG ONE (02:11)
[2023-04-26 02:20] VITALS: BP 131/88; PULSE 78; RESP 18
--- NOTE | 2023-04-26 09:09 | XRAY ---
Indication: Status post fall. Comparison: January 05, 2021 3 view right shoulder demonstrates stable minimal AC degenerative changes. No new/acute bony, articular, or soft tissue abnormalities.
--- NOTE | 2023-04-26 09:09 | XRAY ---
Indication: Syncope. Status post fall. Comparison: August 14, 2022 Portable chest again demonstrates normal heart, lungs, and bony thorax.
== END 2023-04-26 02:23 | disposition home or self-care (01) ==
LOC: ED 21:57
DX: S02.2XXA Fracture of nasal bones, initial encounter for closed fracture (principal); S01.81XA Laceration without foreign body of other part of head, initial encounter; S01.112A Laceration without foreign body of left eyelid and periocular area, initial encounter; S80.212A Abrasion, left knee, initial encounter; W18.39XA Other fall on same level, initial encounter; Y92.007 Garden or yard of unspecified non-institutional (private) residence as the place of occurrence of the external cause; R55 Syncope and collapse; M25.511 Pain in right shoulder; R51.9 Headache, unspecified; E78.5 Hyperlipidemia, unspecified; I10 Essential (primary) hypertension; Z79.899 Other long term (current) drug therapy; Z28.310 Unvaccinated for COVID-19; Z86.16 Personal history of COVID-19; Z72.0 Tobacco use
CPT/HCPCS: 12014; 36000; 36415; 70450; 70486; 71045; 72125; 73030; 80053; 80307; 81001; 83735; 83880; 84484; 84703; 85025; 93005; 93041; 94760; 96360; 96361; 99284; A9270-GY

== ENCOUNTER 2023-06-25 06:57 | Emergency (ER) | payer OTHER ==
[2023-06-25 07:21] VITALS: TEMP 97.5
--- NOTE | 2023-06-25 07:28 | ERPHSYRPT ---
- History of Present Illness Time Seen by Provider: 06/25/23 07:26 Source: patient Exam Limitations: no limitations Patient Subjective Stated Complaint: Pt had a syncopal episode with incontinence, this is the second episode since April Triage Nursing Assessment: Pt brought to the ER by her mother, vitals wnl, denies pain, pt states that her head feels "dizzy or foggy", pt had got right up out of bed and went to the door and handed keys to her son and shut the door and that is when she started feeling like she was going to pass out, pt was inc ontinent when she passed out, denies any injuries due to sitting on the couch when it happened, pulses normal, skin n/w/d, wheezing Physician History: Patient is a 47-year-old female presents to our ED via private vehicle for evaluation of syncope. Patient had a similar episode in April. Patient states that she is experiencing brain fog or dizziness. Patient reports her gait is unsteady. She is experiencing generalized weakness no pain. Patient had a bout of incontinence during the episode of syncope. Patient has seen a inspector and clerk and a music therapy teacher for the same in April. Patient states that a diagnosis has not been rendered. However she reports having 2 leaky heart valves and decreased renal function but that these diagnoses have not plain patient's synco pal episode. Patient is a smoker. Patient appears to be slurring her words slightly. Physical exam otherwise unremarkable. Mother at bedside. They voiced no other complaints or concerns at this time. Portions of this note were created with voice recognition technology. There may be grammatical, spelling, punctuation or sound alike errors Timing/Duration: today Severity: moderate Modifying Factors: Improves With: nothing Associated Symptoms: No nausea, No vomiting, No shortness of breath, No fever Allergies/Adverse Reactions: Penicillins Allergy (Verified 06/25/23 07:21) Hives Home Medications: Quetiapine Fumarate 100 mg [Seroquel 100 MG] 50 mg PO HS 04/25/23 [History] Ondansetron [Ondansetron Odt ] 4 mg SL UD PRN 06/25/23 [History] clonazePAM 0.5 mg PO TID PRN 06/25/23 [History] dilTIAZem HCL [Diltiazem 24Hr ER] 120 mg PO DAILY 06/25/23 [History] Hx Tetanus, Diphtheria Vaccination/Date Given: Yes Hx Influenza Vaccination/Date Given: Yes Hx Pneumococcal Vaccination/Date Given: No Travel Risk - International Travel Have you traveled outside of the country in past 3 weeks: No - Coronavirus Screening Are you exhibiting any of the following symptoms?: No Close contact with a COVID-19 positive Pt in past 14-21 Days: No - Vaccine Status Have you recieved a Covid-19 vaccination: No - Review of Systems Constitutional: No Symptoms, No Fever, No Chills Eyes: No Symptoms Ears, Nose, & Throat: No Symptoms Respiratory: No Symptoms, No Cough, No Dyspnea Cardiac: No Symptoms, No Chest Pain, No Edema, No Syncope Abdominal/Gastrointestinal: No Symptoms, No Abdominal Pain, No Nausea, No Vomiting, No Diarrhea Genitourinary Symptoms: No Symptoms, No Dysuria Musculoskeletal: No Symptoms, No Back Pain, No Neck Pain Skin: No Symptoms, No Rash Neurological: No Symptoms, No Dizziness, No Focal Weakness, No Sensory Changes Psychological: No Symptoms Endocrine: No Symptoms Hematologic/Lymphatic: No Symptoms Immunological/Allergic: No Symptoms All Other Systems: Reviewed and Negative - Past Medical History Pertinent Past Medical History: Yes Neurological History: No Pertinent History ENT History: No Pertinent History Cardiac History: High Cholesterol, Hypertension Respiratory History: Other Endocrine Medical History: Hypothyroidism Musculoskeletal History: No Pertinent History, Other GI Medical History: No Pertinent History, GERD History: No Pertinent History Psycho-Social History: Anxiety, Depression, Other Female Reproductive Disorders: No Pertinent History Other Medical History: Smoker, COVID-19 x2, L Index finger Fracture, RUE fracture at elbow (childhood), dog bite to L foot (12/2021) s/p gangrene and surgical repair ptsd - Past Surgical History Past Surgical History: Yes Neuro Surgical History: No Pertinent History Cardiac: No Pertinent History Respiratory: No Pertinent History Gastrointestinal: Appendectomy, Cholecystectomy Genitourinary: No Pertinent History Musculoskeletal: Other Female Surgical History: Tubal Ligation, Section Other Surgical History: left amr hardware foot surgery from dog bite - Social History Smoking Status: Current every day smoker How long have you smoked: 10 years Exposure to second hand smoke: Yes Alcohol Use: Socially Drug Use: marijuana Patient Lives Alone: Yes Significant Family History: no pertinent family hx - Female History Hx Now: No (tubal) - Nursing Vital Signs Nursing Vital Signs: Initial Vital Signs Temperature 97.5 F 06/25/23 07:04 Pulse Rate 76 06/25/23 07:04 Respiratory Rate 17 06/25/23 07:04 Blood Pressure 113/79 06/25/23 07:04 O2 Sat by Pulse Oximetry 97 06/25/23 07:04 Pain Scale Pain Intensity 0 - Physical Exam General Appearance: no apparent distress, alert Eye Exam: PERRL/EOMI, eyes nml inspection Ears, Nose, Throat Exam: normal ENT inspection, TMs normal, pharynx normal, moist mucous membranes Neck Exam: normal inspection, non-tender, supple, full range of motion Respiratory Exam: airway intact, wheezing, No respiratory distress Cardiovascular Exam: regular rate/rhythm, normal heart sounds, normal peripheral pulses Gastrointestinal/Abdomen Exam: soft, normal bowel sounds, No tenderness, No mass Back Exam: normal inspection, normal range of motion, No CVA tenderness, No vertebral tenderness Extremity Exam: normal inspection, normal range of motion, pelvis stable Neurologic Exam: alert, oriented x 3, cooperative, normal mood/affect, nml cerebellar function, nml station & gait, sensation nml, No motor deficits Skin Exam: normal color, warm, dry, No rash Lymphatic Exam: No adenopathy SpO2 Interpretation: normal SpO2: 97 O2 Delivery: Room Air - Course Nursing assessment & vital signs reviewed: Yes EKG Interpreted by Me: RATE (76), Sinus Rhythm, NORMAL AXIS, NORMAL INTERVALS - Radiology Exams Chest X-ray Interpretation: Teleradiologist Report (Chest x-ray negative for acute pathology) - CT Exams Head CT Interpretation: Tele-radiologist Report (Normal CT head without contrast) Ordered Tests: Active Orders 24 hr Category Date Time Status Ruffler STAT Care 06/25/23 07:21 Active EKG-ER Only STAT Care 06/25/23 07:20 Active IV Insertion STAT Care 06/25/23 07:20 Active Pulse Oximetry (ED) STAT Care 06/25/23 07:20 Active CHEST 1 VIEW (PORTABLE) Stat Exams 06/25/23 09:32 Completed HEAD WITHOUT CONTRAST [CT] Stat Exams 06/25/23 07:25 Completed ABG [ARTERIAL BLOOD GASES] Stat Lab 06/25/23 07:56 Completed CBC W DIFF Stat Lab 06/25/23 07:20 Completed CMP Stat Lab 06/25/23 07:20 Completed D-DIMER QUANTITATIVE Stat Lab 06/25/23 07:20 Completed HCG QUALITATIVE, URINE Stat Lab 06/25/23 07:41 Completed NT PRO BNPII Stat Lab 06/25/23 07:20 Completed POCT GLUCOSE Stat Lab 06/25/23 07:16 Completed TROPONIN Q4H Lab 06/25/23 07:20 Completed TROPONIN Q4H Lab 06/25/23 11:30 Ordered TROPONIN Q4H Lab 06/25/23 15:30 Ordered UA W/RFX UR CULTURE Stat Lab 06/25/23 07:41 Completed Respiratory Therapy Assessment DAILY RT 06/25/23 08:12 Completed Medication Summary Generic Name Dose Route Start Last Admin Trade Name Freq PRN Reason Stop Dose Admin Sodium Chloride 1,000 mls @ 999 mls/hr 06/25/23 09:20 06/25/23 09:24 Sodium Chloride 0.9% 1000 Ml IV 06/25/23 10:20 999 mls/hr .Q1H1M STA Administration Discontinued Medications Generic Name Dose Route Start Last Admin Trade Name Freq PRN Reason Stop Dose Admin Albuterol Sulfate 2.5 mg 06/25/23 07:57 06/25/23 08:12 Albuterol Sulfate 2.5 Mg/3 Ml Neb IH 06/25/23 07:58 2.5 mg STAT ONE Administration Albuterol Sulfate Confirm 06/25/23 08:04 Albuterol Sulfate 2.5 Mg/3 Ml Neb Administered 06/25/23 08:05 Dose 2.5 mg IH .STK-MED ONE Methylprednisolone Sodium 0 mg 06/25/23 09:31 06/25/23 09:33 Succinate 125 mg/ Sterile IV 06/25/23 09:32 125 mg Water 2 ml STAT ONE Administration Sodium Chloride Confirm 06/25/23 09:22 Sodium Chloride 0.9% 1000 Ml Administered 06/25/23 09:23 Dose 1,000 mls @ ud .ROUTE .STK-MED ONE Methylprednisolone Sodium Succinate Confirm 06/25/23 09:32 Methylprednis Sod Succ 125 Mg/2 Ml Vial Administered 06/25/23 09:33 Dose 125 mg .ROUTE .STK-MED ONE Potassium Chloride 40 meq 06/25/23 09:18 06/25/23 09:25 Potassium Chloride Tab 10 Meq Tab PO 06/25/23 09:19 40 meq STAT ONE Administration Potassium Chloride Confirm 06/25/23 09:22 Potassium Chloride Tab 10 Meq Tab Administered 06/25/23 09:23 Dose 40 meq PO .STK-MED ONE Sterile Water Confirm 06/25/23 09:32 Water For Injection,Sterile 10 Ml Vial Administered 06/25/23 09:33 Dose 10 ml IJ .STK-MED ONE Lab/Rad Data: Laboratory Result Diagrams 06/25/23 07:20 06/25/23 07:20 Laboratory Results 06/25/23 06/25/23 06/25/23 Range/Units 07:56 07:41 07:41 WBC (4.0-10.5) x10^3/uL RBC (4.1-5.4) x10^6/uL Hgb (12.0-16.0) g/dL Hct (35-47) % MCV (78-100) fL MCH (26-32) pg MCHC (32-36) g/dL RDW (11.5-14.0) % Plt Count (150-450) x10^3/uL MPV (7.5-11.0) fL Gran % (36.0-66.0) % Immature Gran % (Auto) (0.00-0.4) % Nucleat RBC Rel Count (0.00-0.1) % Eos # (Auto) (0-0.5) x10^3/uL Immature Gran # (Auto) (0.00-0.03) x10^3u/L Absolute Lymphs (auto) (1.0-4.6) x10^3/uL Absolute Monos (auto) (0.0-1.3) x10^3/uL Absolute Nucleated RBC (0.00-0.01) x10^3u/L Lymphocytes % (24.0-44.0) % Monocytes % (0.0-12.0) % Eosinophils % (0.00-5.0) % Basophils % (0.0-0.4) % Absolute Granulocytes (1.4-6.9) x10^3/uL Basophils # (0-0.4) x10^3/uL D-Dimer (0.0-0.50) mg/L Puncture Site LEFT BRACHIAL pCO2 38 (35-45) mmHg pO2 70 L (75-100) mmHg Base Excess -0.4 (-2.0-2.0) O2 Saturation 91.1 L (94-100) g/dF ABG pH 7.41 (7.35-7.45) ABG HCO3 24.1 (22-28) ABG O2 Sat (Measured) 95.7 (95-100) % Kem Test yes A-a Gradient 32 a/A Ratio 0.69 Hemoglobin 11.6 Carboxyhemoglobin 4.4 (0.0-6.9) % THgb Methemoglobin 0.4 L (1.4-1.5) % Temperature 37.0 C POC O2 Flow Rate 21 % Sodium (137-145) mmol/L Potassium 3.6 (3.5-5.1) mmol/L Chloride (98-107) mmol/L Carbon Dioxide (22-30) mmol/L Anion Gap (5-15) MEQ/L BUN (7-17) mg/dL Creatinine (0.52-1.04) mg/dL Estimated GFR ML/MIN Glucose (74-106) mg/dL POC Glucometer (74 to 106) mg/dL Calcium (8.4-10.2) mg/dL Total Bilirubin (0.2-1.3) mg/dL AST (14-36) U/L ALT (0-35) U/L Alkaline Phosphatase (38-126) U/L Troponin I (0.000-0.034) ng/mL NT-Pro-B Natriuret Pep (<300) pg/mL Serum Total Protein (6.3-8.2) g/dL Albumin (3.5-5.0) g/dL Urine Color Yellow (Yellow) Urine Appearance Clear (Clear) Urine pH 6.0 (4.6-8.0) Ur Specific [place] <=1.005 (1.005-1.030) Urine Protein Trace A (Negative) Urine Glucose (UA) Negative (Negative) mg/dL Urine Ketones Negative (Negative) Urine Blood Negative (Negative) Urine Nitrite Negative (Negative) Urine Bilirubin Negative (Negative) Urine Urobilinogen 0.2 (0.2) mg/dL Ur Leukocyte Esterase Negative (Negative) U Hyaline Cast (Auto) NONE SEEN (0-2) /LPF Urine Microscopic RBC 0-2 (0-5) /HPF Urine Microscopic WBC 3-5 (0-5) /HPF Ur Epithelial Cells None Seen (None Seen) /HPF Urine Bacteria None Seen (None Seen) /HPF Urine Culture Reflexed NO (NO) Urine HCG, Qual NEGATIVE (NEGATIVE) 06/25/23 06/25/23 06/25/23 Range/Units 07:20 07:20 07:20 WBC (4.0-10.5) x10^3/uL RBC (4.1-5.4) x10^6/uL Hgb (12.0-16.0) g/dL Hct (35-47) % MCV (78-100) fL MCH (26-32) pg MCHC (32-36) g/dL RDW (11.5-14.0) % Plt Count (150-450) x10^3/uL MPV (7.5-11.0) fL Gran % (36.0-66.0) % Immature Gran % (Auto) (0.00-0.4) % Nucleat RBC Rel Count (0.00-0.1) % Eos # (Auto) (0-0.5) x10^3/uL Immature Gran # (Auto) (0.00-0.03) x10^3u/L Absolute Lymphs (auto) (1.0-4.6) x10^3/uL Absolute Monos (auto) (0.0-1.3) x10^3/uL Absolute Nucleated RBC (0.00-0.01) x10^3u/L Lymphocytes % (24.0-44.0) % Monocytes % (0.0-12.0) % Eosinophils % (0.00-5.0) % Basophils % (0.0-0.4) % Absolute Granulocytes (1.4-6.9) x10^3/uL Basophils # (0-0.4) x10^3/uL D-Dimer 0.20 (0.0-0.50) mg/L Puncture Site pCO2 (35-45) mmHg pO2 (75-100) mmHg Base Excess (-2.0-2.0) O2 Saturation (94-100) g/dF ABG pH (7.35-7.45) ABG HCO3 (22-28) ABG O2 Sat (Measured) (95-100) % Kem Test A-a Gradient a/A Ratio Hemoglobin Carboxyhemoglobin (0.0-6.9) % THgb Methemoglobin (1.4-1.5) % Temperature C POC O2 Flow Rate % Sodium 138 (137-145) mmol/L Potassium 3.4 L (3.5-5.1) mmol/L Chloride 106 (98-107) mmol/L Carbon Dioxide 24 (22-30) mmol/L Anion Gap 12.0 (5-15) MEQ/L BUN 8 (7-17) mg/dL Creatinine 0.81 (0.52-1.04) mg/dL Estimated GFR > 60.0 ML/MIN Glucose 144 H (74-106) mg/dL POC Glucometer (74 to 106) mg/dL Calcium 10.0 (8.4-10.2) mg/dL Total Bilirubin 0.40 (0.2-1.3) mg/dL AST 31 (14-36) U/L ALT 18 (0-35) U/L Alkaline Phosphatase 79 (38-126) U/L Troponin I < 0.012 (0.000-0.034) ng/mL NT-Pro-B Natriuret Pep 51.4 (<300) pg/mL Serum Total Protein 7.3 (6.3-8.2) g/dL Albumin 4.5 (3.5-5.0) g/dL Urine Color (Yellow) Urine Appearance (Clear) Urine pH (4.6-8.0) Ur Specific [place] (1.005-1.030) Urine Protein (Negative) Urine Glucose (UA) (Negative) mg/dL Urine Ketones (Negative) Urine Blood (Negative) Urine Nitrite (Negative) Urine Bilirubin (Negative) Urine Urobilinogen (0.2) mg/dL Ur Leukocyte Esterase (Negative) U Hyaline Cast (Auto) (0-2) /LPF Urine Microscopic RBC (0-5) /HPF Urine Microscopic WBC (0-5) /HPF Ur Epithelial Cells (None Seen) /HPF Urine Bacteria (None Seen) /HPF Urine Culture Reflexed (NO) Urine HCG, Qual (NEGATIVE) 06/25/23 06/25/23 Range/Units 07:20 07:16 WBC 8.2 (4.0-10.5) x10^3/uL RBC 4.55 (4.1-5.4) x10^6/uL Hgb 11.5 L (12.0-16.0) g/dL Hct 36.8 (35-47) % MCV 80.9 (78-100) fL MCH 25.3 L (26-32) pg MCHC 31.3 L (32-36) g/dL RDW 17.2 H (11.5-14.0) % Plt Count 390 (150-450) x10^3/uL MPV 9.3 (7.5-11.0) fL Gran % 48.1 (36.0-66.0) % Immature Gran % (Auto) 0.1 (0.00-0.4) % Nucleat RBC Rel Count 0.0 (0.00-0.1) % Eos # (Auto) 0.20 (0-0.5) x10^3/uL Immature Gran # (Auto) 0.01 (0.00-0.03) x10^3u/L Absolute Lymphs (auto) 3.32 (1.0-4.6) x10^3/uL Absolute Monos (auto) 0.71 (0.0-1.3) x10^3/uL Absolute Nucleated RBC 0.00 (0.00-0.01) x10^3u/L Lymphocytes % 40.3 (24.0-44.0) % Monocytes % 8.6 (0.0-12.0) % Eosinophils % 2.4 (0.00-5.0) % Basophils % 0.5 (0.0-0.4) % Absolute Granulocytes 3.95 (1.4-6.9) x10^3/uL Basophils # 0.04 (0-0.4) x10^3/uL D-Dimer (0.0-0.50) mg/L Puncture Site pCO2 (35-45) mmHg pO2 (75-100) mmHg Base Excess (-2.0-2.0) O2 Saturation (94-100) g/dF ABG pH (7.35-7.45) ABG HCO3 (22-28) ABG O2 Sat (Measured) (95-100) % Kem Test A-a Gradient a/A Ratio Hemoglobin Carboxyhemoglobin (0.0-6.9) % THgb Methemoglobin (1.4-1.5) % Temperature C POC O2 Flow Rate % Sodium (137-145) mmol/L Potassium (3.5-5.1) mmol/L Chloride (98-107) mmol/L Carbon Dioxide (22-30) mmol/L Anion Gap (5-15) MEQ/L BUN (7-17) mg/dL Creatinine (0.52-1.04) mg/dL Estimated GFR ML/MIN Glucose (74-106) mg/dL POC Glucometer 132 H (74 to 106) mg/dL Calcium (8.4-10.2) mg/dL Total Bilirubin (0.2-1.3) mg/dL AST (14-36) U/L ALT (0-35) U/L Alkaline Phosphatase (38-126) U/L Troponin I (0.000-0.034) ng/mL NT-Pro-B Natriuret Pep (<300) pg/mL Serum Total Protein (6.3-8.2) g/dL Albumin (3.5-5.0) g/dL Urine Color (Yellow) Urine Appearance (Clear) Urine pH (4.6-8.0) Ur Specific [place] (1.005-1.030) Urine Protein (Negative) Urine Glucose (UA) (Negative) mg/dL Urine Ketones (Negative) Urine Blood (Negative) Urine Nitrite (Negative) Urine Bilirubin (Negative) Urine Urobilinogen (0.2) mg/dL Ur Leukocyte Esterase (Negative) U Hyaline Cast (Auto) (0-2) /LPF Urine Microscopic RBC (0-5) /HPF Urine Microscopic WBC (0-5) /HPF Ur Epithelial Cells (None Seen) /HPF Urine Bacteria (None Seen) /HPF Urine Culture Reflexed (NO) Urine HCG, Qual (NEGATIVE) - Progress Progress: improved Progress Note: Patient is a 47-year-old female presents to our ED for evaluation of syncope at home. Patient got out of bed ran into her door and syncopized. Upon arrival to our ED patient was alert and oriented x4. Slightly slurred speech. Patient stated that her gait was unsteady. EKG revealed a normal sinus rhythm. CT head negative for acute intracranial pathology. Lab work-up includes CBC which reveals a slight normocytic anemia of 11.5. CMP reveals a potassium of 3.4. 40 mEq oral potassium administered. D-dimer negative. On patient's physical exam she displayed wheezing. Chest x-ray was negative. Patient is a smoker. ABG was ordered which reveals a hypoxemia of 91. Patient was 93% on room air. Patient received a nebulizer treatment as well as Solu-Medrol IV. Patient's blood pressure was low in our ED. Patient on blood pressure medications. Patient received a liter of normal saline. Patient symptoms significantly improved. We will advised patient to hold her blood pressure medication pending reassessment on by her primary care doctor. A prescription for albuterol inhaler as well as prednisone forwarded to patient's pharmacy. Telemetry neuro was consulted regarding patient's symptoms and findings. Teleneurologist Dr. Huynh believes that patient experienced a bout of orthostatic hypotension. She felt patient is appropriate for discharge. Plan of care discussed with patient. She agrees to follow-up with Ronel Ramirez on Saturday for reassessment of blood pressure and symptomology. She voices no other complaints or concerns at this time. Portions of this note were created with voice recognition technology. There may be grammatical, spelling, punctuation or sound alike errors Complexity of problem addressed is moderate acute complicated No critical care time Complex of data reviewed and analyzed is extensive. Test ordered. Test reviewed and analyzed including the findings and imaging studies. Clinical correlation made between history and physical exam and test studies. Management/plan of care discussed with teleneurologist Dr. Huynh at approximately 9 AM. Risk of complication and or risk of morbidity/mortality of patient management is moderate. A prescription for albuterol inhaler and prednisone forwarded to patient's pharmacy. We will discharge patient home. Vital stable. Blood pressure improved after normal saline administration. Time spent to discharge patient approximately 15 minutes. Plan of care established for shared decision making. No social determinants of health present to impede follow-up. Portions of this note were created with voice recognition technology. There may be grammatical, spelling, punctuation or sound alike errors 06/25/23 09:49 Counseled pt/family regarding: lab results, diagnosis, need for follow-up, rad results - Departure Departure Disposition: Home Clinical Impression: Dizzy, Generalized weakness, Wheezing, Seizure, Hypokalemia, Hypoxia, Hypotension, Orthostatic syncope Condition: Stable Critical Care Time: No Referrals: CORINA RAMIREZ NP [Primary Care Provider] - Follow up/PCP as directed Additional Instructions: Hold your BP medications. Follow up with Ronel Ramirez on at 2pm to reassess BP. Discharge/Care Plan COSME,REMA DOTY was seen on 06/25/23 in the Emergency Room. The patient was counseled regarding Diagnosis,Lab results, Imaging studies, need for follow up and when to return to the Emergency Room. Prescriptions given: Discharge Note I have spoken with the patient and/or caregivers. I have explained the patient's condition, diagnosis and treatment plan based on the information available to me at this time. I have answered the patient's and/or caregiver's questions and addressed any concerns. The patient and/or caregivers have as good understanding of the patient's diagnosis, condition and treatment plan as can be expected at this point. The vital signs have been stable. The patient's condition is stable and appropriate for discharge from the emergency department. The patient will pursue further outpatient evaluation with the primary care physician or other designated or consulting physician as outlined in the discharge instructions. The patient and/or caregivers are agreeable to this plan of care and follow-up instructions have been explained in detail. The patient and/or caregivers have received these instruction. The patient/and or caregivers are aware that any significant change in condition or worsening of symptoms should prompt an immediate return to this or the closest emergency department or call 911. Prescriptions: Prednisone 10 mg [Deltasone 10 mg] 40 mg PO DAILY 3 Days #12 tablet Albuterol 8 gm Mdi Hfa [Ventolin Hfa MDI] 8 gm IH Q4H #1
[2023-06-25 07:33] LABS: Absolute Neutrophil Ct (ANC) 3.95 x10^3/uL (1.4-6.9); BASOPHIL % 0.5 % (0.0-0.4); Basophil (Absolute #) 0.04 x10^3/uL (0-0.4); Eosinophil % 2.4 % (0.00-5.0); Hematocrit 36.8 % (35-47); Hemoglobin 11.5 g/dL (12.0-16.0); IMMATURE GRAN # 0.01 x10^3u/L (0.00-0.03); IMMATURE GRAN % 0.1 % (0.00-0.4); Lymphocyte (Absolute #) 3.32 x10^3/uL (1.0-4.6); Lymphocytes % 40.3 % (24.0-44.0); Mean Cell Volume 80.9 fL (78-100); Mean Corpuscular Hemoglobin 25.3 pg (26-32); Mean Corpuscular Hgb Concent. 31.3 g/dL (32-36); Mean Platelet Volume 9.3 fL (7.5-11.0); Monocyte (Absolute #) 0.71 x10^3/uL (0.0-1.3); Monocytes % 8.6 % (0.0-12.0); Neutrophil % 48.1 % (36.0-66.0); Platelet Count 390 x10^3/uL (150-450); Red Blood Count 4.55 x10^6/uL (4.1-5.4); Red Cell Distribution Width 17.2 % (11.5-14.0); White Blood Count 8.2 x10^3/uL (4.0-10.5)
[2023-06-25 07:49] LABS: HCG URINE TEST NEGATIVE (NEGATIVE)
[2023-06-25 07:49] LABS: ALBUMIN 4.5 g/dL (3.5-5.0); ALKALINE PHOSPHATASE 79 U/L (38-126); BLOOD UREA NITROGEN 8 mg/dL (7-17); CHLORIDE 106 mmol/L (98-107); Carbon Dioxide 24 mmol/L (22-30); Creatinine 1 0.81 mg/dL (0.52-1.04); EST GLOMERULAR FILTRATION RATE > 60.0 ML/MIN; Glucose 144 mg/dL (74-106); Potassium 3.4 mmol/L (3.5-5.1); SGOT/AST 31 U/L (14-36); SGPT/ALT 18 U/L (0-35); SODIUM 138 mmol/L (137-145); Total Protein 7.3 g/dL (6.3-8.2)
[2023-06-25 07:52] LABS: Appearance Clear (Clear); Bacteria None Seen /HPF (None Seen); Bilirubin Negative (Negative); Blood Negative (Negative); Epithelial Cells None Seen /HPF (None Seen); Glucose, Urine Negative (Negative); Hyaline Casts NONE SEEN /LPF (0-2); Ketones Negative (Negative); Leukocyte Esterase Negative (Negative); Nitrite Negative (Negative); Protein,Urine Dip Trace (Negative); RBC 0-2 /HPF (0-5); Specific Gravity <=1.005 (1.005-1.030); Urobilinogen 0.2 mg/dL (0.2)
[2023-06-25] MEDS ORDERED: PROVENTIL 2.5 MG/3 ML NEB IH ONE ×2 (07:57→08:04)
[2023-06-25 08:00] LABS: NT PRO BNPII 51.4 pg/mL (<300); TROPONIN < 0.012 ng/mL (0.000-0.034)
[2023-06-25 08:10] LABS: ADD URINE CULTURE? NO (NO)
[2023-06-25 08:12] LABS: A-aADO2 32; ABG HEMOGLOBIN 11.6; ABG POTASSIUM 3.6 (3.5-5.1); ABG SITE LEFT BRACHIAL; ALLEN TEST OK? yes; ARTERIAL BLD GAS O2 SATURATION 95.7 % (95-100); ARTERIAL BLOOD GAS BASE EXCESS -0.4 (-2.0-2.0); ARTERIAL BLOOD GAS FIO2 21 %; ARTERIAL BLOOD GAS PCO2 38 mmHg (35-45); ARTERIAL BLOOD GAS PO2 70 mmHg (75-100); ARTERIAL BLOOD GAS pH 7.41 (7.35-7.45); CARBOXYHEMOGLOBIN 4.4 % THgb (0.0-6.9); HCO3- 24.1 (22-28); HGB O2 SAT 91.1 g/dF (94-100); Methhemoglobin 0.4 % (1.4-1.5); paO2 pAO1 0.69
--- NOTE | 2023-06-25 08:31 | XRAY ---
Indication: Syncope. Multiple contiguous axial images obtained through the head without contrast. Comparison: April 25, 2023 Normal appearing brain parenchyma, ventricles, and bony calvarium. Visualized paranasal sinuses and mastoid air cells are clear. Impression: Continued normal CT head without contrast exam.
[2023-06-25 08:42] VITALS: RESP 17
[2023-06-25] MEDS ORDERED: Klor Con PO ONE ×2 (09:18→09:22)
[2023-06-25] MEDS ORDERED: Sodium Chloride 0.9% 1000 ML 1,000 ML IV STA (09:20)
[2023-06-25] MEDS ORDERED: Sodium Chloride 0.9% 1000 ML 1,000 ML ONE (09:22)
[2023-06-25 09:31] VITALS: BP 101/68
[2023-06-25] MEDS ORDERED: solu-MEDROL 125 MG, Sterile H2O 10 ml 2 ML IV ONE ×2 (09:31)
[2023-06-25] MEDS ORDERED: solu-MEDROL ONE (09:32)
[2023-06-25] MEDS ORDERED: Sterile H2O 10 ml IJ ONE (09:32)
--- NOTE | 2023-06-25 09:48 | XRAY ---
Indication: Wheezing. Syncope. Comparison: April 26, 2023 Portable chest again demonstrates normal heart and lungs. Bony thorax intact. No new/acute findings.
[2023-06-25 10:07] VITALS: PULSE 73
[2023-06-25 10:12] VITALS: O2SAT 97
== END 2023-06-25 10:58 | disposition home or self-care (01) ==
LOC: ED 06:57
DX: I95.9 Hypotension, unspecified (principal); I95.1 Orthostatic hypotension; R42 Dizziness and giddiness; R53.1 Weakness; R06.2 Wheezing; R56.9 Unspecified convulsions; E87.6 Hypokalemia; R09.02 Hypoxemia; E78.5 Hyperlipidemia, unspecified; I10 Essential (primary) hypertension; Z79.52 Long term (current) use of systemic steroids; Z79.899 Other long term (current) drug therapy; Z28.310 Unvaccinated for COVID-19; Z86.16 Personal history of COVID-19; Z72.0 Tobacco use
CPT/HCPCS: 36000; 36415; 36600; 70450; 71045; 80053; 81001; 81025; 82375; 82803; 82947; 83880; 84484; 85025; 85379; 93005; 93041; 94640; 94760; 96360; 96374; 99284; J2930; J7609; A9270-GY

== ENCOUNTER 2024-04-01 15:14 | Day surgery (SDC) | payer OTHER ==
[2024-04-01] MEDS ORDERED: LIDOCAINE HCL 2% 100 MG/5 ML IJ ONE (15:15)
[2024-04-01 16:30] LABS: HCG URINE TEST NEGATIVE (NEGATIVE)
[2024-04-01] MEDS ORDERED: Lactated Ringers 1,000 ML IV ONE (17:28)
[2024-04-01] MEDS ORDERED: DIPRIVAN 200 MG/20 ML IV ONE (18:22)
--- NOTE | 2024-04-01 20:09 | XRAY ---
Indication: Bilateral L4-S1 MBB. Intraoperative fluoroscopy provided for 15 seconds. Single digital spot image submitted for interpretation demonstrates posterior needle tips projecting over the expected left and right L4-S1 nerve roots. Correlate with intraoperative findings/report.
--- NOTE | 2024-04-02 09:10 | XRAY ---
15 seconds of fluoroscopy was used in surgery for a bilateral L4-S1 MBB.
== END 2024-04-01 19:05 | disposition home or self-care (01) ==
LOC: SDC-PAIN 15:14
PROVIDERS: ATTEND Psychiatry & Neurology Pain Medicine
DX: M47.816 Spondylosis without myelopathy or radiculopathy, lumbar region (principal)
CPT/HCPCS: 36410; 64493; 64494; 72020; 77002; 81025; J2704

== ENCOUNTER 2024-05-13 11:08 | Day surgery (SDC) | payer OTHER ==
[2024-05-13] MEDS ORDERED: BUPIVACAINE 0.5% VIAL IJ ONE (11:09)
[2024-05-13 11:42] LABS: HCG URINE TEST NEGATIVE (NEGATIVE)
[2024-05-13] MEDS ORDERED: DIPRIVAN 200 MG/20 ML IV ONE (13:02)
[2024-05-13] MEDS ORDERED: Lactated Ringers 1,000 ML IV ONE (14:34)
--- NOTE | 2024-05-13 15:09 | XRAY ---
15 seconds of fluoroscopy was used in surgery for a bilateral L4-S1 MBB.
== END 2024-05-13 13:30 ==
LOC: SDC-PAIN 11:08
PROVIDERS: ATTEND Psychiatry & Neurology Pain Medicine
DX: M47.816 Spondylosis without myelopathy or radiculopathy, lumbar region (principal)
CPT/HCPCS: 64493; 64494; 72020; 77002; 81025; J2704

== ENCOUNTER 2024-06-24 10:48 | Day surgery (SDC) | payer OTHER ==
[2024-06-24] MEDS ORDERED: BUPIVACAINE 0.5% VIAL IJ ONE (10:49)
[2024-06-24] MEDS ORDERED: Depo-Medrol 40 MG/ML IM ONE (10:49)
[2024-06-24] MEDS ORDERED: LIDOCAINE HCL 1% 50 MG/5 ML VL PF IJ ONE (10:49)
[2024-06-24 11:42] LABS: HCG URINE TEST NEGATIVE (NEGATIVE)
[2024-06-24] MEDS ORDERED: DIPRIVAN 200 MG/20 ML IV ONE ×2 (12:52→13:04)
[2024-06-24] MEDS ORDERED: Lactated Ringers 1,000 ML IV ONE (13:49)
--- NOTE | 2024-06-24 19:58 | XRAY ---
Indication: Right L4-S1 RFA Intraoperative fluoroscopy provided for 22 seconds. 4 digital spot image submitted for interpretation demonstrates posterior needle tips projecting over the expected right L4-S1 nerve roots. Correlate with intraoperative findings/report.
--- NOTE | 2024-06-24 20:20 | XRAY ---
22 seconds of fluoroscopy was used in surgery for a right L4-S1 RFA.
== END 2024-06-24 13:26 | disposition home or self-care (01) ==
LOC: SDC-PAIN 10:48
PROVIDERS: ATTEND Psychiatry & Neurology Pain Medicine
DX: M47.816 Spondylosis without myelopathy or radiculopathy, lumbar region (principal)
CPT/HCPCS: 64635; 64636; 72100; 77002; 81025; J2001; J2704

== ENCOUNTER 2024-07-01 10:15 | Day surgery (SDC) | payer OTHER ==
[2024-07-01] MEDS ORDERED: BUPIVACAINE 0.5% VIAL IJ ONE (10:16)
[2024-07-01] MEDS ORDERED: Depo-Medrol 40 MG/ML IM ONE (10:16)
[2024-07-01] MEDS ORDERED: LIDOCAINE HCL 1% AMPUL 5 ML IJ ONE (10:16)
[2024-07-01 10:41] LABS: HCG URINE TEST NEGATIVE (NEGATIVE)
[2024-07-01] MEDS ORDERED: DIPRIVAN 200 MG/20 ML IV ONE (11:53)
[2024-07-01] MEDS ORDERED: Lactated Ringers 1,000 ML IV ONE (12:43)
--- NOTE | 2024-07-01 14:08 | XRAY ---
Indication: Left L4-S1 RFA. Intraoperative fluoroscopy provided for 18 seconds. 3 digital spot image submitted for interpretation demonstrates posterior needle tips projecting over the expected left L4-S1 nerve roots. Correlate with intraoperative findings/report.
--- NOTE | 2024-07-01 14:40 | XRAY ---
18 seconds of fluoroscopy was used in surgery for a left L4-S1 RFA.
== END 2024-07-01 12:26 | disposition home or self-care (01) ==
LOC: SDC-PAIN 10:15
PROVIDERS: ATTEND Psychiatry & Neurology Pain Medicine
DX: M47.816 Spondylosis without myelopathy or radiculopathy, lumbar region (principal)
CPT/HCPCS: 64635; 64636; 72100; 77002; 81025; J2704